=== PATIENT | female | born 1960 | race Caucasian/White ===

== ENCOUNTER → 2018-01-15 14:43 | Outpatient (CLI) | payer OTHER, SELFPAY ==
--- NOTE | 2018-01-15 14:46 | ECHOCS_ITS ---
Reason For Study: PULMONARY HTN Procedure This was a 2D Doppler, Color Flow transthoracic echocardiogram. The study was technically difficult. Exam performed in department. Left Ventricle Normal size and thickness. The estimated ejection fraction is 65 %. Stage 1 diastolic dysfunction. No regional wall motion abnormalities noted. Right Ventricle Normal size and thickness. Normal systolic function. Atria Normal left atrium. Normal right atrium. Normal atrial septum. Mitral Valve The mitral valve is structurally normal. No prolapse or stenosis seen. Tricuspid Valve Normal tricuspid valve. Unable to estimate RV systolic pressure due to inadequate jet, pulmonary artery pressure probably normal. Aortic Valve Trisinus/trileaflet aortic valve. Pulmonic Valve The pulmonic valve is not well visualized. Great Vessels Normal aortic root. Normal arch. Normal inferior vena cava. Inferior vena cava collapse with sniff. Pericardium/Pleural No pericardial effusion. Medication 22 gauge I.V. with prn adaptor inserted into right arm. Diluted definity 4ml given slow IV push to enhance endocardial definition. MMode/2D Measurements & Calculations LVIDd: 4.8 cm IVSd: 0.97 cm Ao root diam: 3.0 cm LVIDs: 3.1 cm LVPWd: 0.79 cm LA dimension: 3.3 cm FS: 35.4 % LAV(MOD-bp): 54.7 ml LA A4 area: 19.2 cm2 RA A4 area: 14.4 cm2 LAV(MOD-bp) Indexed: 22.6 ml/m2 LAV(MOD-sp2): 47.8 ml LAV(MOD-sp4): 48.2 ml Time Measurements MV dec time: 0.25 sec Doppler Measurements & Calculations MV E max stuart: 82.4 cm/sec Lat Peak E' Stuart: 14.4 cm/sec Med Peak E' Stuart: 11.0 cm/sec MV A max stuart: 76.2 cm/sec E/E' lat: 5.7 E/E' med: 7.5 MV E/A: 1.1 Ao V2 max: 129.3 cm/sec LV V1 max: 114.4 cm/sec PA V2 max: 130.7 cm/sec Ao max P.7 mmHg LV V1 max P.2 mmHg Interpretation Summary The estimated ejection fraction is 65 %. Stage 1 diastolic dysfunction. Unable to estimate RV systolic pressure due to inadequate jet, pulmonary artery pressure probably normal. Compared to echo report dated 08/02/2016, no appreciable changes noted. Consider RHC if pulmonary HTN is suspected. The study was technically difficult. Contrast injection was performed. Ordering Physician: Lefty Feliz Referring Physician: KATHLEEN MAYES Performed By: Em Mora RDCS
== END ==
PROVIDERS: Family Provider Internal Medicine; PCP Internal Medicine; Visit Provider Internal Medicine Cardiovascular Disease
DX: I27.21 Secondary pulmonary arterial hypertension (principal); I26.99 Other pulmonary embolism without acute cor pulmonale; I10 Essential (primary) hypertension; G47.33 Obstructive sleep apnea (adult) (pediatric)
CPT/HCPCS: 93306; Q9957; C8929

== ENCOUNTER 2018-12-16 03:22 | Emergency (ER) | payer OTHER, SELFPAY ==
[2018-11-19 06:34] VITALS: BMI 64.4
[2018-12-16 03:23] VITALS: BP 156/59; PULSE 74; RESP 16; TEMP 36.6; O2SAT 95; BMI 65.1
--- NOTE | 2018-12-16 03:33 | ED.DCSUM_ITS ---
- ER Visit Summary Date of Service: 12/16/18 Chief Complaint: Hematuria, dysuria History of Present Illness: The patient is a 58 F who presents with hematuria. It started early this morning. She had noticed some dysuria as well. She is on Coumadin for history of PE. Her INR this month was 2.9. She denies fevers. She has had urinary tract infections in the past. Denies any abdominal pain. No nausea or vomiting. Physical Examination: Vital signs reviewed. HEENT exam unremarkable. Heart is regular rate and rhythm without murmurs. Lungs are clear to auscultation. Abdomen is soft and nontender. Extremities reveal no edema. Skin exam normal. Neurologic exam normal. Test Results: Urinalysis has greater than 100 red blood cells Emergency Department Course and Treatment: The patient has no white blood cells but the red blood cells may represent infection due to her being on Coumadin. I will treat her with Keflex. She will follow-up with her PCP Treatment Plan: [] Disposition: Discharge Impression: UTI hematuria This note was generated with [employer] dictation software. It may contain incorrect words, spelling, and punctuation that were not noted in review of the chart prior to signing ED Disposition - Plan for ED Patient: Referrals: Loyda Cameron MD [Primary Care Provider] -
[2018-12-16 03:47] LABS: Bacteria 0 SEEN /hpf (None Seen); Mucous, Urine 0 SEEN /hpf (<or=2+); White Blood Cells 0 SEEN /hpf (0-5)
[2018-12-16 03:48] LABS: Color, Urine Red (Yellow); Glucose, Dipstick Normal (Normal); Ketone-Dipstick 5 mg/dl (Negative); Leukocyte Esterase-Dipstick Negative /ul (Negative); Nitrite-Dipstick Negative (Negative); Occult Blood-Urine 250 /ul (Negative); Protein-Dipstick 500 mg/dl (Negative); Urine Bilirubin Dipstick Negative (Negative); Urine Clarity Turbid (Clear); Urine Urobilinogen Normal (Normal); Urine pH 6.5 (5.0 - 8.0)
[2018-12-16 03:55] LABS: Red Blood Cells-Urine > 100 SEEN /hpf (0-5); Squamous Epithelial Cells - UA 0-5 SEEN /hpf (5-10)
--- NOTE | 2018-12-16 04:22 | ED.DEP ---
ED Disposition - Plan for ED Patient: Disposition: Home or Assisted Living Instructions: Bladder Infection, Female (Adult) Prescriptions: Cephalexin [Keflex] 500 mg PO Q12 #14 cap Prescription Printed Referrals: Loyda Cameron MD [Primary Care Provider] -
[2018-12-16] MEDS: Cephalexin 250 MG Capsule 500 MG PO (04:33)
[2018-12-16 04:35] VITALS: BP 109/52; PULSE 64; RESP 16; O2SAT 96
[2018-12-16] MEDS: Phenazopyridine 95 MG Tablet 190 MG PO (04:47)
== END 2018-12-16 04:56 | disposition home or self-care (01) ==
PROVIDERS: Emergency Provider Emergency Medicine; Family Provider Internal Medicine; PCP Internal Medicine
DX: N39.0 Urinary tract infection, site not specified (principal); R31.9 Hematuria, unspecified; Z79.01 Long term (current) use of anticoagulants; Z86.711 Personal history of pulmonary embolism; I25.10 Atherosclerotic heart disease of native coronary artery without angina pectoris
CPT/HCPCS: 81001; 87077; 87086; 87088; 87186; 99283

== ENCOUNTER 2019-02-23 09:04 | Day surgery (SDC) | payer OTHER, SELFPAY ==
[2019-02-18 13:30] VITALS: BMI 63.4
[2019-02-23] VITALS (7 sets, daily range): BP systolic 121–154; BP diastolic 55–89; PULSE 69–92; RESP 16–18; TEMP 36.1–37.2; O2SAT 93–98; BMI 62.6
--- NOTE | 2019-02-23 | GASB_PTH ---
PATIENT: ARAMIS BARRAGAN LOC: EN U#:[id number] AGE/SX: 59/F ROOM: RE02/23/[address]: Dr. Viraj Goodwin MD : 1960 BED: DIS: 02/23/2019 SPEC #: [id number] RECD: 02/23/19 14:24 STATUS: JR JONG #: [id number] LALO: 02/23/19 00:[address]: Viraj Goodwin DEPT: SURGICAL PATHOLOGY RECD BY: Estevan Goldberg ENTERED: 02/23/19 14:25 SP TYPE: Gastric Bx OTHR DR: MD Loyda Quan MD Tissues: A - Gastric mucous membrane B - Gastric mucous membrane C - Rectum, NOS Procedures: Surgery Specimen Level IV HEADER OPERATION: Colonoscopy, EGD ([facility]) PRE-OP DIAGNOSIS: Abdominal pain; positive fecal occult blood TISSUE SUBMITTED: A - Antral biopsy for H. pylori and pathology, B - GE junction biopsy, C - Rectal polyp MICROSCOPIC DIAGNOSIS A. Antral biopsy: Mild gastritis. See microscopic description and comment. B. GE junction, biopsy: Fragments of squamous epithelium with reactive changes. C. 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 See comment. SJ:jeanette 02/24/19 COMMENT A. The results of immunohistochemistry for Helicobacter pylori will be reported separately ([id number]). C. The high grade dysplasia is noted towards the luminal surface of polyp. Correlation with clinical, endoscopic findings and appropriate follow up are necessary. MICROSCOPIC DESCRIPTION Slides are reviewed. A. The specimen shows fragments of gastric mucosa with chronic inflammatory cell infiltrates in the lamina propria consisting of lymphocytes and plasma cells, consistent with mild chronic gastritis. GROSS DESCRIPTION A - Received in fixative is one container labeled with the patient's name and designated antral biopsy. The specimen consists of multiple irregular fragments of light owens soft tissue that in aggregate measure 1 x 0.3 x 0.1 cm. The specimen is totally submitted in one cassette. B - Received in fixative is one container labeled with the patient's name and designated GE junction biopsy. The specimen consists of two irregular fragments of light owens soft tissue that in aggregate measure 0.8 x 0.4 x 0.1 cm. The specimen is totally submitted in one cassette. C - Received in fixative is one container labeled with the patient's name and designated rectal polyp. The specimen consists of a piece of owens-pink polyp measuring 2 x 2 x 1.3 cm. This piece is serially sectioned. Also present in the container is a smaller piece of polyp measuring 1 x 0.5 cm. The smaller polyp is bisected. Also present in the container are multiple fragments of owens soft tissue measuring in aggregate 1.5 x 1.5 x 0.2 cm. The entire specimen is submitted in two cassettes. Cassette 1 contains the largest polyp. / SJ:rg 02/23/19 TC:1 CPT: 90618 x3
[2019-02-23] MEDS: Lactated Ringers 1,000 ML 100 ML IV (09:37)
--- NOTE | 2019-02-23 10:15 | IMM_PTH ---
PATIENT: ARAMIS BARRAGAN LOC: EN U#:[id number] AGE/SX: 59/F ROOM: RE02/23/[address]: Dr. Viraj Goodwin MD : 1960 BED: DIS: 02/23/2019 SPEC #: [id number] RECD: 02/23/19 15:15 STATUS: JR RECaro #: [id number] LALO: 02/23/19 10:[address]: Viraj Goodwin DEPT: IMMUNOHISTOCHEMISTRY RECD BY: Tamy Sher ENTERED: 02/23/19 15:15 SP TYPE: IMMUNO OTHR DR: MD Loyda Quan MD Tissues: A - Stomach, NOS Procedures: H Pylori (initial) PHYSICIAN & INSTITUTION [facility] [place] [phone] SPECIMEN INFORMATION: Tissue Source: A - Antral biopsy Clinical Info: Abdominal pain; positive fecal occult blood Specimen Number: [id number] CPT code: 21510 METHODOLOGY: Deparaffinized sections of prefer/formalin-fixed tissue or PAP/DQ stained slides are incubated with monoclonal/polyclonal antibodies/oligonucleotide probes. Localization is made via biotin free immunoperoxidase method. Appropriate controls are performed and reacted as expected. Results on target cell population are indicated in the following table: RESULTS: ANTIBODY / CLONE RESULT Block A H Pylori (polyclonal) negative These tests were developed and their performance characteristics determined by [facility]. They may not have been cleared or approved by the U.S. Food and Drug Administration. The FDA has determined that such clearance or approval is not necessary. INTERPRETATION: A. Antral biopsy: Negative for Helicobacter pylori organisms. SJ:jeanette 02/24/19
--- NOTE | 2019-02-23 10:21 | PCM.HP.BLA ---
Problem List (1) Guaiac positive stools Status: Acute History and Physical Date of Admission: 02/23/19 Intake Vital Signs 02/18/19 Body Mass Index (BMI) 63.4 02/18/19 Height 5 ft 2 in 02/18/19 Weight: 347 lb 02/18/19 Body Mass Index (BMI) 63.4 02/18/19 Blood Pressure 151/73 H 02/18/19 Blood Pressure Location Rt radial 02/18/19 Blood Pressure Position Sitting 02/18/19 Respiratory Rate 18 Intake Visit Reasons: Blood in Stool per workload msg Chief Complaint: Routine f/u Patient Care Nursing Assistant Required: No Is patient in pain?: No Allergies latex Allergy (Verified 02/18/19 13:30) Itching naproxen [From Aleve] Adverse Reaction (Unknown, Verified 02/18/19 13:30) Unknown Medications Cholecalciferol (VIT D3) [Vitamin D3] 2,000 unit PO DAILY 10/04/14 [History Confirmed 02/18/19] Mometasone Furoate [Nasonex] 1 spray NASAL DAILY PRN PRN 10/04/14 [History Confirmed 02/18/19] olopatadine 0.1 % eye drops 1 drp OPHTHALMIC BID PRN 11/17/17 [History Confirmed 02/18/19] warfarin 7.5 mg tablet 7.5 mg PO SUTUTHSA tab 07/10/18 [History Confirmed 02/18/19] Warfarin [Coumadin ([facility])] 11.25 mg PO MOWEFR 12/16/18 [History Confirmed 02/18/19] hydrochlorothiazide 12.5 mg capsule 12.5 mg PO QAM #90 cap 02/12/19 [Rx Confirmed 02/18/19] losartan 50 mg tablet 50 mg PO QDAY #90 tab 02/12/19 [Rx Confirmed 02/18/19] PFSH Medical History Guaiac positive stools (Acute) Hypertension (Chronic) Secondary pulmonary arterial hypertension (Chronic) Bilateral pulmonary embolism (Chronic) Non-ST elevation (NSTEMI) myocardial infarction (Chronic) BMI 60.0-69.9, adult (Chronic) Obesities, morbid (Chronic) BRENNON (obstructive sleep apnea) (Chronic) Osteoarthritis (Chronic) Bilateral leg edema (Resolved) Dyspnea on exertion (Resolved) Encounter for current long-term use of anticoagulants (Inactive) Surgical History H/O laparoscopic adjustable gastric banding (Chronic) History of tubal ligation (Chronic) History of tubal ligation (Inactive) Hx of laparoscopic gastric banding (Inactive) Social History (Updated 02/19/19 @ 13:29 by Viraj Goodwin MD) Smoking Status: Never smoker second hand exposure: No alcohol intake: never substance use type: does not use caffeine: Yes what type of physical activity do you participate in: none HPI HPI HPI: ARAMIS BARRAGAN, is a 59 F who presents to the office today for HPI HPI Surgical H&P: Yes HPI: ARAMIS BARRAGAN, is a 59 F who presents to the office today for Positive fecal occult blood. The patient reports that she has not noticed any gross blood. She had positive fecal occult blood. She notes that she has diffuse abdominal pain. She has never had a colonoscopy. She is on Coumadin for history of blood clots. ROS General General: No weight change or fatigue Musc Musculoskeletal: Yes arthritis Cardio Cardiovascular: Yes high blood pressure; no murmur, pacemaker, heart disease, atrial fibrillation, heart attack, heart stent, palpitations, shortness of breat with exertion or chest pain Psych Psychiatric: Yes anxiety; no depression Resp Respiratory: No shortness of breath, Yes sleep apnea, No cough, No COPD, No asthma, No emphysema, No wheezing Gastro Gastrointestinal: Yes abdominal pain, No nausea or vomiting, No diarrhea, No constipation, Yes blood in stool, No acid reflux, No hemorrhoids, No ulcers, No gallbladder problem, No black,tarry stools Marbin Hematologic: Yes blood thinners, Yes blood clots Exam Const General: cooperative Orientation: alert, oriented x3 Resp Effort & Inspection: normal respiratory effort Auscultation: clear to auscultation bilaterally Cardio Rate: regular rate Rhythm: regular rhythm Heart Sounds: no murmurs GI Inspection: non-distended Palpation: soft, nontender Assessment & Plan Problems 1. Guaiac positive stools R19.5 Plan The patient has a significant history of PEs and blood clots. The patient's doctor requested that her colonoscopy and EGD be performed on Coumadin. I discussed this with her. I discussed the increased risk of bleeding. She is also [employer]. This limits her medication options if bleeding does occur. She would not be able to receive FFP. I did discuss the possibility of using Kcentra. I explained endoscopy in detail to the patient. I explained the risks including but not limited to stroke or heart attack with anesthesia, perforation of the GI tract, bleeding, infection. I explained that any of these could necessitate further emergency surgery. The patient understands and all questions were answered sufficiently. The patient wishes to proceed with procedure. I will plan for EGD and colonoscopy. Viraj Goodwin MD Pager: [facility] [address] [place] [address], [address] [place] [address] Office:
--- NOTE | 2019-02-23 11:15 | OP.ENDO_ITS ---
02/23/2019 Loyda Cameron [address] [place] [address] Re : Upper GI endoscopy procedure for Mary Jo Lin Dear Dr. Cameron This procedure was performed on Saturday, February 23, 2019. My impressions and recommendations are as follows: Impressions : - Esophagitis. Biopsied. - Large hiatal hernia. - Biopsies were taken with a cold forceps for Helicobacter pylori testing. Recommendations : - Await pathology results. - Discharge patient to home. - Resume previous diet. - Continue present medications. My findings are described in the full procedure note, which is enclosed. If I can be of further assistance, please feel free to contact me at Doctor phone number(s): , Work: . Sincerely, Viraj Goodwin MD 02/23/2019 11:14:39 AM This report has been signed electronically.
--- NOTE | 2019-02-23 11:17 | OP.ENDO_ITS ---
02/23/2019 Loyda Cameron [address] [place] [address] Re : Colonoscopy procedure for Mary Jo Garigan Dear Dr. Cameron This procedure was performed on Saturday, February 23, 2019. My impressions and recommendations are as follows: Impressions : - One large polyp at the recto-sigmoid colon, removed with a hot snare. Resected and retrieved. Clips were placed. Recommendations : - Repeat colonoscopy for surveillance based on pathology results. - Discharge patient to home (ambulatory). - Resume previous diet. - Continue present medications. My findings are described in the full procedure note, which is enclosed. If I can be of further assistance, please feel free to contact me at Doctor phone number(s): , Work: . Sincerely, Virja Goodwin MD 02/23/2019 11:17:24 AM This report has been signed electronically.
== END 2019-02-23 12:32 | disposition home or self-care (01) ==
LOC: EN 09:08 → AC 09:09
PROVIDERS: Family Provider Internal Medicine; PCP Internal Medicine; Referring Provider Internal Medicine; Visit Provider Surgery
PROC: 0DJD8ZZ Inspection of Lower Intestinal Tract, Via Natural or Artificial Opening Endoscopic (ICD-10-PCS; CPT 45378; principal; 2019-02-23 10:10)
DX: K20.9 Esophagitis, unspecified (principal); I27.21 Secondary pulmonary arterial hypertension; K44.9 Diaphragmatic hernia without obstruction or gangrene; D12.7 Benign neoplasm of rectosigmoid junction; R19.5 Other fecal abnormalities; Z86.711 Personal history of pulmonary embolism; Z79.01 Long term (current) use of anticoagulants; Z86.718 Personal history of other venous thrombosis and embolism; Z88.6 Allergy status to analgesic agent; Z91.040 Latex allergy status; I10 Essential (primary) hypertension; I25.2 Old myocardial infarction; G47.33 Obstructive sleep apnea (adult) (pediatric); E66.01 Morbid (severe) obesity due to excess calories; Z68.44 Body mass index [BMI] 60.0-69.9, adult
CPT/HCPCS: 43239; 45385; 88305; 88342; J7120; J2405

== ENCOUNTER → 2019-03-09 14:43 | Outpatient (CLI) | payer OTHER, SELFPAY ==
[2019-02-12 14:18] VITALS: BMI 63.4
[2019-02-23 09:28] VITALS: BMI 62.6
--- NOTE | 2019-03-09 14:46 | ECHOCS_ITS ---
Reason For Study: PHTN Procedure This was a 2D Doppler, Color Flow transthoracic echocardiogram. The study was technically difficult. Contrast injection was performed. Exam performed in department. Left Ventricle Normal size and thickness. The estimated ejection fraction is 65 %. Stage 1 diastolic dysfunction. No regional wall motion abnormalities noted. Right Ventricle Moderately dilated right ventricle. Normal systolic function. Atria Normal left atrium. Normal right atrium. Normal atrial septum. Mitral Valve The mitral valve is structurally normal. No prolapse or stenosis seen. Tricuspid Valve Normal tricuspid valve. Unable to estimate RV systolic pressure due to insufficient tricuspid regurgitant envelope. Aortic Valve Normal aortic valve. Trisinus/trileaflet aortic valve. Pulmonic Valve The pulmonic valve is not well visualized. Great Vessels Normal aortic root. Normal arch. Normal inferior vena cava. Inferior vena cava collapse with sniff. Pericardium/Pleural No pericardial effusion. Medication 22 gauge I.V. with prn adaptor inserted into right arm. Diluted definity 4ml given slow IV push to enhance endocardial definition. MMode/2D Measurements & Calculations LVIDd: 4.2 cm IVSd: 1.5 cm LA dimension: 3.8 cm LVIDs: 2.9 cm LVPWd: 1.3 cm FS: 32.4 % LAV(MOD-bp): 50.9 ml LA A4 area: 18.9 cm2 RA A4 area: 16.3 cm2 LAV(MOD-bp) Indexed: 21.1 ml/m2 LAV(MOD-sp2): 40.6 ml LAV(MOD-sp4): 48.8 ml Time Measurements MV dec time: 0.25 sec Doppler Measurements & Calculations MV E max stuart: 71.7 cm/sec Lat Peak E' Stuart: 12.8 cm/sec Med Peak E' Stuart: 8.3 cm/sec MV A max stuart: 79.5 cm/sec E/E' lat: 5.6 E/E' med: 8.7 MV E/A: 0.90 MV V2 max: 76.4 cm/sec MV P1/2t max stuart: 75.1 cm/sec Ao V2 max: 162.6 cm/sec MV max P.3 mmHg MV P1/2t: 76.6 msec Ao max P.6 mmHg MV V2 mean: 45.5 cm/sec MV dec slope: 287.1 cm/sec2 Ao V2 mean: 101.2 cm/sec MV mean P.96 mmHg Ao mean P.7 mmHg MV V2 VTI: 19.9 cm MVA(P1/2t): 2.9 cm2 Ao V2 VTI: 30.2 cm LV V1 max: 118.4 cm/sec PA V2 max: 118.5 cm/sec LV V1 max P.6 mmHg LV V1 mean P.2 mmHg LV V1 mean: 65.6 cm/sec LV V1 VTI: 21.0 cm Interpretation Summary The estimated ejection fraction is 65 %. Stage 1 diastolic dysfunction. Moderately dilated right ventricle. Unable to estimate RV systolic pressure due to insufficient tricuspid regurgitant envelope. Compared to echo report dated 01/15/2018, no appreciable changes noted. Consider RHC if clinically indicated for direct pressure measurements. The study was technically difficult. Contrast injection was performed. Ordering Physician: Lefty Feliz Referring Physician: Loyda Cameron M.D. Performed By: Jaswinder Rubio RCS
== END ==
PROVIDERS: Family Provider Internal Medicine; PCP Internal Medicine; Referring Provider Internal Medicine Cardiovascular Disease; Visit Provider Internal Medicine Cardiovascular Disease
DX: I27.21 Secondary pulmonary arterial hypertension (principal); I26.99 Other pulmonary embolism without acute cor pulmonale; I10 Essential (primary) hypertension; I25.2 Old myocardial infarction
CPT/HCPCS: 93306; Q9957; A4216; C8929

== ENCOUNTER → 2019-06-04 | Outpatient (CLI) | payer OTHER, SELFPAY ==
[2019-06-01 05:59] VITALS: BMI 64.7
[2019-06-04 08:37] VITALS: PULSE 100; PULSE 104; PULSE 109; PULSE 110; PULSE 88; PULSE 89; PULSE 90; PULSE 94; O2SAT 90; O2SAT 92; O2SAT 94; O2SAT 95; O2SAT 96; O2SAT 98
--- NOTE | 2019-06-04 11:38 | WT_ITS ---
PSN 6 Minute Walk Test - 6 Minute Walk Test 6 Minute Walk Test: 6 Minute Walk Test PSN:6-Minute Walk Test Start: 06/04/19 08:08 Freq: Status: Active Protocol: RESP.6MINW Document 06/04/19 08:37 [facility] (Rec: 06/04/19 08:48 [facility] TO [facility] [id number]) 6 Minute Walk Test Date Performed 06/04/19 Time Performed 08:00 Height 5 ft 2 in Weight: 357 lb Weight in Pounds 357.[address]: Juanpablo Post Assistive device used: Walker Pre-test Oxygen Delivery Method Room Air Pulse Ox (%) 96 Pulse Rate (60-100 beats/min) 88 Dyspnea Yuriy Scale (0-10) 0 1st minute Oxygen Delivery Method Room Air Pulse Ox (%) 94 Pulse Rate (60-100 beats/min) 89 Dyspnea Yuriy Scale (0-10) 1 Number of Rests Taken 0 2nd minute Oxygen Delivery Method Room Air Pulse Ox (%) 95 Pulse Rate (60-100 beats/min) 94 Dyspnea Yuriy Scale (0-10) 2 Number of Rests Taken 0 3rd minute Oxygen Delivery Method Room Air Pulse Ox (%) 94 Pulse Rate (60-100 beats/min) 100 Dyspnea Yuriy Scale (0-10) 2 Number of Rests Taken 0 4th minute Oxygen Delivery Method Room Air Pulse Ox (%) 94 Pulse Rate (60-100 beats/min) 104 H Dyspnea Yuriy Scale (0-10) 3 Number of Rests Taken 0 Reported Symptoms Increased Work of Breathing 5th minute Oxygen Delivery Method Room Air Pulse Ox (%) 92 Pulse Rate (60-100 beats/min) 110 H Dyspnea Yuriy Scale (0-10) 4 Number of Rests Taken 0 Reported Symptoms Increased Work of Breathing 6th minute Oxygen Delivery Method Room Air Pulse Ox (%) 90 Pulse Rate (60-100 beats/min) 109 H Dyspnea Yuriy Scale (0-10) 5 Number of Rests Taken 0 Reported Symptoms Increased Work of Breathing Post-test Oxygen Delivery Method Room Air Pulse Ox (%) 98 Pulse Rate (60-100 beats/min) 90 Dyspnea Yuriy Scale (0-10) 0 Full Laps Walked 20 Partial Lap, Number of Tiles Walked 12 Total Distance Walked (ft) 1192 - Interpretation Interpretation: The patient ambulated 1192 feet over the course of 6 minutes beginning on room air with the use of a walker. Pretesting oxygen saturation was noted to be 96% on room air. With ambulation, the joseph oxygen saturation was 90%. This represents a significant exertional oxygen desaturation. - Recommendations Recommendations: There is no indication for the use of supplemental oxygen at this time. However, close interval follow-up is recommended, given the degree of oxygen desaturation noted during this study.
== END | disposition home or self-care (01) ==
LOC: PSN 08:00
PROVIDERS: PCP Internal Medicine; Referring Provider Internal Medicine Critical Care Medicine; Visit Provider Internal Medicine Critical Care Medicine
DX: I27.21 Secondary pulmonary arterial hypertension (principal)
CPT/HCPCS: 94618

== ENCOUNTER → 2019-09-11 | Outpatient (CLI) | payer OTHER, SELFPAY ==
[2019-08-20 10:58] VITALS: BMI 64.0
[2019-09-11 07:43] LABS: AST(SGOT) 18 U/L (15-37); Alanine Aminotransfer ALT/SGPT 24 U/L (13-56); Albumin, Serum 3.3 g/dL (3.2-5.0); Alkaline Phosphatase 87 U/L (45-117); Bilirubin, Direct 0.12 mg/dL (0.00-0.30); Cholesterol 178 mg/dL (200); Globulin 3.9 g/dL (2.2-4.2); High Density Lipoprotein 69 mg/dL; Protein, Total 7.2 g/dL (6.4-8.2); Triglycerides 75 mg/dL; Very Low Density Lipoprotein 15 mg/dL (5-40)
== END | disposition home or self-care (01) ==
LOC: LAB 07:06
PROVIDERS: PCP Internal Medicine; Referring Provider Internal Medicine Cardiovascular Disease; Visit Provider Internal Medicine Cardiovascular Disease
DX: E66.01 Morbid (severe) obesity due to excess calories (principal); E78.00 Pure hypercholesterolemia, unspecified; I10 Essential (primary) hypertension
CPT/HCPCS: 36415; 80061; 80076

== ENCOUNTER → 2020-06-21 | Outpatient (CLI) | payer OTHER, SELFPAY ==
[2020-02-23 14:09] VITALS: BMI 64.2
== END | disposition home or self-care (01) ==
LOC: LABSPEC 16:27
PROVIDERS: PCP Internal Medicine
DX: N85.02 Endometrial intraepithelial neoplasia [EIN] (principal)
CPT/HCPCS: 87635; C9803; U0005; U0003

== ENCOUNTER → 2020-10-03 07:49 | Outpatient (CLI) | payer OTHER, SELFPAY ==
[2019-11-30 05:36] VITALS: BMI 64.7
[2020-02-23 14:09] VITALS: BMI 64.2
[2020-10-03 08:24] VITALS: PULSE 0; PULSE 4; PULSE 87; PULSE 88; PULSE 89; O2SAT 92; O2SAT 93; O2SAT 95; O2SAT 97; O2SAT 98
--- NOTE | 2020-10-03 13:17 | WT_ITS ---
PSN 6 Minute Walk Test 6 Minute Walk Test 6 Minute Walk Test: 6 Minute Walk Test PSN:6-Minute Walk Test Start: 10/03/20 08:23 Freq: Status: Active Protocol: RESP.6MINW Document 10/03/20 08:24 [facility] (Rec: 10/03/20 08:28 [facility] [id number]) 6 Minute Walk Test Date Performed 10/03/20 Time Performed 08:00 Height 5 ft 1 in Weight: 350 lb Weight in Pounds 350.[address]: Juanpablo Post Assistive device used: Walker Pre-test Oxygen Delivery Method Room Air Pulse Ox (%) 97 Pulse Rate (60-100 beats/min) 88 Dyspnea Yuriy Scale (0-10) 1 1st minute Oxygen Delivery Method Room Air Pulse Ox (%) 97 Pulse Rate (60-100 beats/min) 89 Dyspnea Yuriy Scale (0-10) 2 Number of Rests Taken 0 2nd minute Oxygen Delivery Method Room Air Pulse Ox (%) 95 Pulse Rate (60-100 beats/min) 89 Dyspnea Yuriy Scale (0-10) 3 Number of Rests Taken 0 Reported Symptoms Increased Work of Breathing 3rd minute Oxygen Delivery Method Room Air Pulse Ox (%) 93 Pulse Rate (60-100 beats/min) 87 Dyspnea Yuriy Scale (0-10) 3 Number of Rests Taken 0 Reported Symptoms Increased Work of Breathing 4th minute Oxygen Delivery Method Room Air Pulse Ox (%) 93 Pulse Rate (60-100 beats/min) 89 Dyspnea Yuriy Scale (0-10) 3 Number of Rests Taken 0 Reported Symptoms Increased Work of Breathing 5th minute Oxygen Delivery Method Room Air Pulse Ox (%) 93 Pulse Rate (60-100 beats/min) 4 L Dyspnea Yuriy Scale (0-10) 4 Number of Rests Taken 0 Reported Symptoms Increased Work of Breathing 6th minute Oxygen Delivery Method Room Air Pulse Ox (%) 92 Pulse Rate (60-100 beats/min) 0 L Dyspnea Yuriy Scale (0-10) 4 Number of Rests Taken 0 Reported Symptoms Increased Work of Breathing Post-test Oxygen Delivery Method Room Air Pulse Ox (%) 98 Pulse Rate (60-100 beats/min) 89 Dyspnea Yuriy Scale (0-10) 1 Full Laps Walked 18 Partial Lap, Number of Tiles Walked 37 Total Distance Walked (ft) 1099 Interpretation Interpretation: The patient ambulated 1099 feet over the course of 6 minutes beginning on room air with the use of a walker. Pretesting oxygen saturation was noted to be 97% on room air. With ambulation, the joseph oxygen saturation was 92%. This represents a significant exertional oxygen desaturation, consistent with a pulmonary limitation to exercise tolerance. Recommendations Recommendations: There is no indication for the use of supplemental oxygen at this time. However, close interval follow-up is recommended, given the degree of oxygen desaturation noted during this study.
== END ==
PROVIDERS: PCP Internal Medicine; Referring Provider Internal Medicine Critical Care Medicine; Visit Provider Internal Medicine Critical Care Medicine
DX: I27.21 Secondary pulmonary arterial hypertension (principal)
CPT/HCPCS: 94618

== ENCOUNTER → 2020-11-07 12:00 | Outpatient (CLI) | payer OTHER, SELFPAY ==
[2020-02-23 14:09] VITALS: BMI 64.2
[2020-10-17 05:43] VITALS: BMI 64.7
--- NOTE | 2020-11-07 12:09 | US_ITS ---
STUDY: ULTRASOUND OF THE FEMALE PELVIS - COMPLETE REASON FOR EXAM: Female, 60 years old. IUD PlacementUS - Pelvic, Tvag LMP: TECHNIQUE: Transvaginal TECHNICAL QUALITY: Adequate. COMPARISON: None. FINDINGS: The examination was performed with the transabdominal technique. Please refer to the report dictated. US/Pelvic (Non ) IMPRESSION: Examination was performed with the transabdominal technique. Electronically Signed: Erick Santos MD at 14:32 EDT , Service support ,
--- NOTE | 2020-11-07 12:10 | US_ITS ---
STUDY: ULTRASOUND OF THE FEMALE PELVIS - COMPLETE REASON FOR EXAM: Female, 60 years old. Endometrial hyperplasia/ IUD LMP: Patient is postmenopausal. TECHNIQUE: Transabdominal and Transvaginal TECHNICAL QUALITY: Adequate. COMPARISON: None. FINDINGS: The uterus is anteverted and is in a midline position. The uterus is enlarged and measures 9.1 cm x 5.2 cm x 5.1 cm. There is a Nabothian cyst of the cervix. The endometrium is thickened and measures 5.5 mm in thickness, and is hyperechoic. There is no demonstrated endometrial mass. The uterus is of heterogeneous echotexture although no definite fibroid is seen. I.U.D. - The patient does have an I.U.D. and is in the fundus. The right ovary is visualized. The right ovary measures 3.4 cm x 2.2 cm x 1.6 cm. There is no right ovarian cyst or ovarian mass. There is no visualized right adnexal mass or complex lesion. There is normal arterial and normal venous vascularity. The left ovary is visualized. The left ovary measures 2.7 cm x 2 cm x 2 cm. There is no left ovarian cyst or ovarian mass. There is no visualized left adnexal mass or complex lesion. There is normal arterial and normal venous vascularity. There is no fluid in the cul-de-sac. US/Transvaginal Non- IMPRESSION: Mild enlargement of the uterus. The uterus is of heterogeneous echotexture although no focal fibroid is seen. Thickened endometrium measuring 5.5 mm. A IUD is seen in the fundal portion of the uterus. Electronically Signed: Erick Santos MD at 14:20 EDT , Service support ,
== END ==
PROVIDERS: PCP Internal Medicine
DX: N85.00 Endometrial hyperplasia, unspecified (principal)
CPT/HCPCS: 76830; 76856

== ENCOUNTER 2022-04-23 06:40 | Day surgery (SDC) | payer OTHER, SELFPAY ==
[2022-04-23] MEDS: Lactated Ringers 1,000 ML 15 ML IV (07:00)
[2022-04-23 07:06] LABS: INR Fingerstick 0.8
[2022-04-23 07:17] VITALS: BP 109/83; PULSE 88; RESP 17; TEMP 36.9; O2SAT 95; BMI 64.1
--- NOTE | 2022-04-23 07:47 | HP.PCM_ITS ---
History and Physical Date of Admission: 04/23/22 Intake Vital Signs ? 04/11/2214:25 Weight: 341 lb 8 oz BP 124/79 H Blood Pressure Location Rt brachial Position Sitting Respiration 17 Pulse 72 Pulse Source Monitor Temp 97.5 F L Temp Source Temporal Pulse Oximetry (%) 98 Oxygen Delivery Method room air Intake Visit Reasons:?Cscope recall letter - Coumadin, hx TV adenoma Chief Complaint: c-scope Is patient in pain?: No Allergies latex Allergy (Verified 04/11/22 14:27) Itchingnaproxen [From Aleve] Adverse Reaction (Unknown, Verified 04/11/22 14:27) Unknown Medications mometasone 50 mcg/actuation nasal spray 1 spray NASAL DAILY PRN PRN Allergies 10/04/14 [History Confirmed 04/11/22] olopatadine 0.1 % eye drops (Patanol) 1 drp ophthalmic (eye) BID PRN Allergies 11/17/17 [History Confirmed 04/11/22] cholecalciferol (vitamin D3) 125 mcg (5,000 unit) tablet (Vitamin D3) 125 mcg PO DAILY 02/23/20 [History Confirmed 04/11/22] warfarin 7.5 mg tablet 7.5 mg PO 4XW 02/23/20 [History Confirmed 04/11/22] warfarin 7.5 mg tablet 11.25 mg PO MOWEFR 02/23/20 [History Confirmed 04/11/22] hydrochlorothiazide 25 mg tablet 25 mg PO DAILY #90 tabs 02/19/21 [Rx Confirmed 04/11/22] losartan 50 mg tablet 75 mg PO QDAY htn 90 days #135 tabs 02/22/22 [Rx Confirmed 04/11/22] PFSH Medical History? Bilateral leg edema Bilateral pulmonary embolism BMI 60.0-69.9, adult Dyspnea on exertion Encounter for current long-term use of anticoagulants Guaiac positive stools Hypertension Non-ST elevation (NSTEMI) myocardial infarction Obesities, morbid BRENNON (obstructive sleep apnea) Osteoarthritis Secondary pulmonary arterial hypertension Surgical History? H/O laparoscopic adjustable gastric banding History of tubal ligation History of tubal ligation Hx of laparoscopic gastric banding Social History? Smoking Status:? Never smoker second hand exposure:? No alcohol intake:? never substance use type:? does not use caffeine:? Yes what type of physical activity do you participate in:? none HPI HPI HPI: Patient is a 62-year-old female here for surveillance colonoscopy.? Her last colonoscopy was 3 years ago and she was advised to repeat due to size of the tubovillous adenoma.? Patient denies any blood in the stool or abdominal pain. ROS General General: No weight change, appetite, fatigue, colon cancer or breast cancer HEENT HEENT: No difficulty swallowing, eye injury, eye surgery, swollen glands or hoarseness Endo Endocrine: No thyroid disease, diabetes mellitus, thyroid cancer, Hair loss, heat intolerance or cold intolerance Skin Skin: No rash or changing moles Musc Musculoskeletal: Yes arthritis; No back problems, rheumatoid arthritis, gout or joint pain Cardio Cardiovascular: Yes high blood pressure; No murmur, pacemaker, heart disease, atrial fibrillation, heart attack, heart stent, palpitations, shortness of breat with exertion or chest pain Psych Psychiatric: No depression, anxiety or hearing voices Resp Respiratory: No shortness of breath, Yes sleep apnea, Yes cough, No COPD, No asthma, No emphysema and No wheezing Gastro Gastrointestinal: No abdominal pain, No nausea or vomiting, No diarrhea, No constipation, No blood in stool, No acid reflux, No hemorrhoids, No ulcers, No gallbladder problem and No black,tarry stools Marbin Hematologic: Yes blood thinners and Yes blood clots Additional Details: h/o blood clots in legs/lungs Exam Const General: cooperative Orientation: alert and oriented x3 HENTN Head: normal to inspection Neck Neck: normal visual inspection and full ROM Chest Chest palpation & inspection: normal inspection of the chest Resp Effort & Inspection: normal respiratory effort Auscultation: clear to auscultation bilaterally Cardio Rate: regular rate Rhythm: regular rhythm GI Inspection: non-distended Palpation: soft and nontender Skin General: no rashes or lesions noted Neuro General: patient alert and patient oriented x3 Extrem General: full ROM Psych Appearance: grossly normal Mental Status: mental status grossly normal Assessment and Plan Assessment and Plan (1) History of colon polyps: ?Status:?Acute ?Plan: Patient has a history of a large tubovillous adenoma and was recommended to repeat colonoscopy for surveillance this year.? The patient is on Coumadin long- term for history of multiple PEs.? She has stopped this for procedures in the past I will ask her to stop it for 5 days for her colonoscopy. I explained endoscopy in detail to the patient.? I explained the risks including but not limited to stroke or heart attack with anesthesia, perforation of the GI tract, bleeding, infection.? I explained that any of these could necessitate further emergency surgery.? The patient understands and all questions were answered sufficiently.? The patient wishes to proceed with procedure. Viraj Goodwin MD Pager: [facility] [address] [place] [address], [address] [place] [address] Office: I have examined the patient and the H&P has been reviewed. There are no clinical changes since date of exam.
[2022-04-23 07:58] LABS: Prothrombin Time Fingerstick 10.8 SEC (11.7-14.9)
--- NOTE | 2022-04-23 08:00 | COLBX_PTH ---
PATIENT: ARAMIS BARRAGAN LOC: EN U#:[id number] AGE/SX: 62/F ROOM: RE04/23/[address]: Dr. Viraj Goodwin MD : 1960 BED: DIS: 04/23/2022 SPEC #: [id number] RECD: 04/23/22 11:13 STATUS: JR JONG #: [id number] LALO: 04/23/22 08:[address]: Viraj Goodwin DEPT: SURGICAL PATHOLOGY RECD BY: Damari Langley ENTERED: 04/23/22 13:02 SP TYPE: COLON BX OTHR DR: Dr. Loyda Cameron MD Tissues: A - Transverse colon B - COLON BIOPSY Procedures: Surgery Specimen Level IV HEADER OPERATION: Colonoscopy with biopsy and polypectomy (MAC) PRE-OP DIAGNOSIS: History of colon polyps TISSUE SUBMITTED: A ? Biopsy transverse colon polyp, B ? Polyp at 12 cm MICROSCOPIC DIAGNOSIS A. Transverse colon polyp, biopsy: Hyperplastic polyp. B. Colon polyp at 12 cm, polypectomy: Fragments of tubulovillous adenoma with focal high-grade dysplasia. SJ:jeanette 04/24/2022 COMMENT Correlation with clinical, endoscopic findings and appropriate follow up are necessary. Case has been reviewed in consultation with Dr. Mcintyre who concurs with the above diagnosis. IDC:AM MICROSCOPIC DESCRIPTION Slides are reviewed. GROSS DESCRIPTION A - Received in fixative is one container labeled with the patient's name and designated biopsy transverse colon polyp. The specimen consists of one irregular fragment of light owens soft tissue that measures 0.4 x 0.1 x 0.1 cm. The specimen is totally submitted in one cassette. B - Received in fixative is one container labeled with the patient's name and designated polyp at 12 cm. The specimen consists of two polypoid pieces of owens soft tissue each measuring 1.5 x 1 x 1 cm. These pieces are serially sectioned. Also present in the container are multiple fragments of owens-pink soft tissue measuring in aggregate 1.5 x 0.5 x 0.3 cm. The entire specimen is submitted in one cassette. / HERNAN:jeanette 04/23/2022 TC:1 CPT: 64544 x2
[2022-04-23 08:29] VITALS: BP 108/77; BP 109/83; PULSE 90; RESP 16; TEMP 36.4; O2SAT 92
--- NOTE | 2022-04-23 08:30 | OP.CCLET_ITS ---
04/23/2022 Loyda Cameron [address] [place] [address] Re : Colonoscopy procedure for Mary Jo Lin Dear Dr. Cameron This procedure was performed on Saturday, April 23, 2022. My impressions and recommendations are as follows: Impressions : - One large polyp in the rectum, removed with a hot snare. Resected and retrieved. - One small polyp in the transverse colon, removed with a hot snare. Resected and retrieved. Recommendations : - Discharge patient to home. - Resume previous diet. - Continue present medications. - Resume Coumadin (warfarin) at prior dose in 2 days. - Repeat colonoscopy in 1 year for surveillance after piecemeal polypectomy. My findings are described in the full procedure note, which is enclosed. If I can be of further assistance, please feel free to contact me at Doctor phone number(s): , Work: . Sincerely, Viraj Goodwin MD 04/23/2022 8:30:22 AM This report has been signed electronically.
--- NOTE | 2022-04-23 08:30 | OP.COLON_ITS ---
Patient Name: Mary Jo Lin Procedure Date: 04/23/2022 7:55 AM Date of : 1960 Age: 62 Procedure: Colonoscopy Indications: High risk colon cancer surveillance: Personal history of colonic polyps Providers: Viraj Goodwin MD Medicines: Monitored Anesthesia Care Patient Profile: This is a 62 year old female. Refer to note in patient chart for documentation of history and physical. Last Colonoscopy: 3 years ago. Complications: No immediate complications. Estimated blood loss: Minimal. Procedure: Pre-Anesthesia Assessment: - Prior to the procedure, a History and Physical was performed, and patient medications and allergies were reviewed. The patient's tolerance of previous anesthesia was also reviewed. The risks and benefits of the procedure and the sedation options and risks were discussed with the patient. All questions were answered, and informed consent was obtained. Prior Anticoagulants: The patient has taken Coumadin (warfarin), last dose was 2 days prior to procedure. After reviewing the risks and benefits, the patient was deemed in satisfactory condition to undergo the procedure. After I obtained informed consent, the scope was passed under direct vision. Throughout the procedure, the patient's blood pressure, pulse, and oxygen saturations were monitored continuously. The pediatric colonoscope was introduced through the anus and advanced to the cecum, identified by appendiceal orifice and ileocecal valve. The colonoscopy was performed without difficulty. The patient tolerated the procedure well. The quality of the bowel preparation was good. Scope In: 8:03:04 AM Scope Withdrawal Time 0 hours 11 minutes 57 seconds Scope Out: 8:23:49 AM Total Procedure Duration Time 0 hours 20 minutes 45 seconds Findings: A large polyp was found in the rectum. The polyp was removed with a hot snare. Resection and retrieval were complete. A small polyp was found in the transverse colon. The polyp was removed with a hot snare. Resection and retrieval were complete. Impression: - One large polyp in the rectum, removed with a hot snare. Resected and retrieved. - One small polyp in the transverse colon, removed with a hot snare. Resected and retrieved. Recommendation: - Discharge patient to home. - Resume previous diet. - Continue present medications. - Resume Coumadin (warfarin) at prior dose in 2 days. - Repeat colonoscopy in 1 year for surveillance after piecemeal polypectomy. Procedure Code(s): --- Professional --- 25706, Colonoscopy, flexible; with removal of tumor(s), polyp(s), or other lesion(s) by snare technique Diagnosis Code(s): --- Professional --- Z86.010, Personal history of colonic polyps K62.1, Rectal polyp D12.3, Benign neoplasm of transverse colon (hepatic flexure or splenic flexure) CPT copyright 2017 [employer]. All rights reserved. The codes documented in this report are preliminary and upon piling cutter review may be revised to meet current compliance requirements. Viraj Goodwin MD 04/23/2022 8:30:22 AM This report has been signed electronically. Number of Addenda: 0 Note Initiated On: 04/23/2022 7:55 AM
[2022-04-23 08:35] VITALS: BP 104/73; BP 109/83; PULSE 84; RESP 16; O2SAT 93
[2022-04-23 08:40] VITALS: BP 109/83; BP 113/80; PULSE 75; RESP 16; O2SAT 95
[2022-04-23 08:45] VITALS: BP 109/83; BP 125/76; PULSE 72; RESP 16; TEMP 36.6; O2SAT 96
[2022-04-23 09:00] VITALS: BP 109/83
== END 2022-04-23 09:09 | disposition home or self-care (01) ==
LOC: EN 06:41 → AC 06:44
PROVIDERS: PCP Internal Medicine; Referring Provider Internal Medicine; Visit Provider Surgery
PROC: 0DJD8ZZ Inspection of Lower Intestinal Tract, Via Natural or Artificial Opening Endoscopic (ICD-10-PCS; CPT 45378; principal; 2022-04-23 07:55)
DX: Z12.11 Encounter for screening for malignant neoplasm of colon (principal); D12.8 Benign neoplasm of rectum; G47.33 Obstructive sleep apnea (adult) (pediatric); I25.2 Old myocardial infarction; I10 Essential (primary) hypertension; Z86.711 Personal history of pulmonary embolism; Z79.899 Other long term (current) drug therapy; Z79.01 Long term (current) use of anticoagulants; Z86.010 Personal history of colon polyps
CPT/HCPCS: 45385; 36416; 85610; 88305; J7120; J2405

== ENCOUNTER 2023-05-09 07:01 | Day surgery (SDC) | payer OTHER, SELFPAY ==
[2023-05-09] VITALS (8 sets, daily range): BP systolic 67–145; BP diastolic 48–86; PULSE 58–95; RESP 14–18; TEMP 36.3–36.4; O2SAT 92–99; BMI 62.8
--- OUTSIDE RECORDS SUMMARY | 2023-05-09 07:04 | XMS RPT_ITS | CCD ---
Author Name Unknown Address [address] [place] [address] Organization [facility] Care Team Providers Care Bioinformatics Programmer Name Role Phone Margie Turner Unavailable Unavailable Margie Turner Unavailable Unavailable Aida RN, Maureen Vera Unavailable Unavailable SUGEY RIOS, DR HAWLEY Primary Care Physician [phone] Marleen Cameron MD Primary Care Provider Marleen Cameron MD Primary Care Provider Marleen Cameron MD Primary Care Provider TALKAVON, MARLEEN D Primary Care Unavailable TALAMPAS, MARLEEN D Primary Care Unavailable TALAMPAS, MARLEEN D Primary Care Unavailable TALAMPAS, MARLEEN D Primary Care Unavailable TALAMPAS, MARLEEN D Primary Care Unavailable TALAMPAS, MARLEEN D Primary Care Unavailable TALAMPAS, MARLEEN D Primary Care Unavailable TALAMPAS, MARLEEN D Primary Care Unavailable TALAMPAS, MARLEEN D Referring Unavailable TALAMPAS, MARLEEN D Primary Care Unavailable TALAMPAS, MARLEEN D Primary Care Unavailable TALAMPAS, MARLEEN D Primary Care Unavailable TALAMPAS, MARLEEN D Primary Care Unavailable TALAMPAS, MARLEEN D Primary Care Unavailable TALAMPAS, MARLEEN D Attending Unavailable TALAMPAS, MARLEEN D Primary Care Unavailable TALAMPAS, MARLEEN D Primary Care Unavailable TALAMPAS, MARLEEN D Primary Care Unavailable TALAMPAS, MARLEEN D Primary Care Unavailable TALAMPAS, MARLEEN D Primary Care Unavailable TALAMPAS, MARLEEN D Primary Care Unavailable Allergies Allergy Classification Reported Allergen(s) Allergy Type Date of Onset Reaction(s) Facility (3 sources) naproxen Drug Allergy 5 [facility] Work Phone: (3 sources) [facility] drug allergy 5 itching [facility] Work Phone: (20 sources) Latex; Translations: [LATEX] Allergy to substance 6 Eruption of skin (disorder), Intolerance [facility] (20 sources) Naproxen; Translations: [NAPROXEN SODIUM] Drug Allergy 0 Other: See Comments [facility] Work Phone: (20 sources) Seasonal [Other] Propensity to adverse reactions 7 [facility] (1 source) OTHER; Translations: [OTHER] Propensity to adverse reactions (disorder) 7 [facility] Medications Current Medications Medication Drug Class(es) Dates Sig (Normalized) Sig (Original) acetaminophen 500 mg oral tablet (7 sources) Start: 06-19-2020 Tylenol Extra Strength 500 mg oral tablet Dose : 1,000 mg = 2 tab(s), Oral, q4h, PRN as needed for pain, # 120 tab(s), 0 Refill(s) Start Date: 06/19/20 Status: Ordered Completed/Discontinued Medications Medication Drug Class(es) Dates Sig (Normalized) Sig (Original) cholecalciferol 0.025 mg oral capsule (20 sources) Vitamin D Start: 02-09-2014 take 2 capsules by mouth once daily Cholecalciferol, Vitamin D3, 1,000 unit cap Take 2 capsules by mouth once daily. (? dose) 0 02/09/2014 Active Problems Active Problems Problem Classification Problem Date Documented Date Episodic/Chronic Acute myocardial infarction (3 sources) Non-ST elevation (NSTEMI) myocardial infarction; Translations: [Non-ST elevation (NSTEMI) myocardial infarction] Onset: 11-02-2014 11-02-2014 Chronic Cardiac dysrhythmias (2 sources) Chronic atrial fibrillation; Translations: [Chronic atrial fibrillation, unspecified] Chronic Essential hypertension (20 sources) Benign hypertension; Translations: [Hypertensive disorder] Onset: 03-04-2016 03-04-2016 Chronic Genitourinary symptoms and ill-defined conditions (1 source) Scalding pain on urination ; Translations: [Dysuria] 01-17-2023 Episodic Immunizations and screening for infectious disease (1 source) Vaccination needed; Translations: [Encounter for immunization] Episodic Inflammation; infection of eye (except that caused by tuberculosis or sexually transmitteddisease) (2 sources) Acute atopic conjunctivitis of bilateral eyes; Translations: [Acute atopic conjunctivitis, bilateral] Episodic Nutritional deficiencies (20 sources) Vitamin D deficiency; Translations: [Vitamin D deficiency, unspecified] Onset: 06-25-2012 06-25-2012 Chronic Other aftercare (7 sources) Patient encounter status; Translations: [Other correction (current) drug therapy] Episodic Other aftercare (1 source) Other correction (current) drug therapy; Translations: [Encounter for long-term current use of medication] Onset: 04-25-2023 Episodic Other and unspecified benign neoplasm (1 source) History of polyp of colon; Translations: [Personal history of colonic polyps] Episodic Other female genital disorders (1 source) Complex atypical endometrial hyperplasia 06-02-2020 Chronic Other nutritional; endocrine; and metabolic disorders (4 sources) Morbid obesity; Translations: [Morbid (severe) obesity due to excess calories] Onset: 11-02-2014 11-02-2014 Chronic Other nutritional; endocrine; and metabolic disorders (20 sources) Body mass index 40+ - severely obese; Translations: [Morbid (severe) obesity due to excess calories] Onset: 04-12-2009 09-06-2017 Chronic Other upper respiratory disease (20 sources) Allergic rhinitis; Translations: [Allergic rhinitis, unspecified] Onset: 07-11-2009 09-04-2016 Chronic Pulmonary heart disease (3 sources) Secondary pulmonary hypertension; Translations: [Other secondary pulmonary hypertension] Onset: 02-01-2015 02-02-2015 Chronic Residual codes; unclassified (20 sources) Bilateral lower limb edema; Translations: [Localized edema] 03-15-2018 Episodic Unclassified (20 sources) Obstructive sleep apnea syndrome; Translations: [Body mass index (BMI) 60.0-69.9, adult] Onset: 11-02-2014 11-02-2014 Chronic Unclassified (3 sources) Long-term drug therapy; Translations: [Encounter for therapeutic drug level monitoring] Onset: 11-02-2014 11-02-2014 Unclassified (1 source) Has hoahaoism belief 06-26-2020 Urinary tract infections (1 source) Urinary tract infectious disease; Translations: [Urinary tract infection, site not specified] 01-17-2023 Episodic Past or Other Problems Problem Classification Problem Date Documented Date Episodic/Chronic Other aftercare (20 sources) Anticoagulant effect; Translations: [longterm (current) use of anticoagulants] Onset: 10-11-2014 10-11-2014 Episodic Other lower respiratory disease (3 sources) Dyspnea on exertion; Translations: [Other forms of dyspnea] Onset: 07-29-2016 07-29-2016 Episodic Other non-traumatic joint disorders (20 sources) Pain in right knee; Translations: [Pain in joint, lower leg] Onset: 06-23-2015 06-23-2015 Episodic Other skin disorders (20 sources) Seborrheic keratosis; Translations: [Other seborrheic keratosis] Onset: 12-17-2011 04-30-2021 Episodic Poisoning by nonmedicinal substances (20 sources) Toxic effect of latex, accidental (unintentional), initial encounter; Translations: [Toxic effect of latex] Onset: 07-11-2009 07-11-2009 Episodic Pulmonary heart disease (20 sources) Pulmonary embolism; Translations: [Pulmonary embolism with pulmonary infarction] Onset: 10-07-2014 11-02-2014 Episodic Unclassified (3 sources) Edema of lower extremity; Translations: [Localized edema] Onset: 11-03-2014 11-03-2014 Episodic Results Test Name Value Interpretation Reference Range Facil ity Vital Signs Date Time Vital Sign Value Performing Clinician Facility 01-17-2023 13:48-0400 Body temperature 98.49 [degF] Renetta Robles APRN.FOLDER MACHINE ADJUSTER Work Phone: [facility] 01-17-2023 13:48-0400 Body weight 157.13 kg Renetta Robles APRN.CNP Work Phone: [facility] 01-17-2023 13:48-0400 Diastolic blood pressure 86 mm[Hg] Renetta Robles APRN.CNP Work Phone: [facility] 01-17-2023 13:48-0400 Heart rate 101 /min Renetta Robles APRN.CNP Work Phone: [facility] 01-17-2023 13:48-0400 Respiratory rate 24 /min Renetta Praisler-Wood FRUIT PICKER MACHINE OPERATOR.FOLDER MACHINE ADJUSTER Work Phone: [facility] 01-17-2023 13:48-0400 SaO2% (BldA) [Mass fraction] 95 % Renetta Praisler-Wood FRUIT PICKER MACHINE OPERATOR.FOLDER MACHINE ADJUSTER Work Phone: [facility] 01-17-2023 13:48-0400 Systolic blood pressure 145 mm[Hg] Renetta Praisler-Wood FRUIT PICKER MACHINE OPERATOR.FOLDER MACHINE ADJUSTER Work Phone: [facility] 11-01-2022 17:22-0400 Diastolic blood pressure 72 mm[Hg] Marleen Cameron MD Work Phone: [facility] 11-01-2022 17:22-0400 Systolic blood pressure 138 mm[Hg] Marleen Cameron MD Work Phone: [facility] 11-01-2022 15:32-0400 Body temperature 98.2 [degF] Marleen Cameron MD Work Phone: [facility] 11-01-2022 15:32-0400 Body weight 156.04 kg Marleen Cameron MD Work Phone: [facility] 11-01-2022 15:32-0400 Heart rate 85 /min Marleen Cameron MD Work Phone: [facility] 11-01-2022 15:32-0400 Respiratory rate 18 /min Marleen Cameron MD Work Phone: [facility] 11-01-2022 15:32-0400 SaO2% (BldA) [Mass fraction] 99 % Marleen Cameron MD Work Phone: [facility] 03-27-2022 14:45-0500 Body height 157.5 cm Stephanie Santacruz MD Work Phone: [facility] 03-27-2022 14:45-0500 Body temperature 98.01 [degF] Stephanie Santacruz MD Work Phone: [facility] 03-27-2022 14:45-0500 Body weight 155.58 kg Stephanie Santacruz MD Work Phone: [facility] 03-27-2022 14:45-0500 Diastolic blood pressure 90 mm[Hg] Stephanie Santacruz MD Work Phone: [facility] 03-27-2022 14:45-0500 Heart rate 117 /min Stephanie Santacruz MD Work Phone: [facility] 03-27-2022 14:45-0500 SaO2% (BldA) [Mass fraction] 98 % Stephanie Santacruz MD Work Phone: [facility] 03-27-2022 14:45-0500 Systolic blood pressure 164 mm[Hg] Stephanie Santacruz MD Work Phone: [facility] 03-12-2022 15:45-0500 Body weight 155.13 kg Marleen Cameron MD Work Phone: [facility] 03-12-2022 15:45-0500 Diastolic blood pressure 86 mm[Hg] Marleen Cameron MD Work Phone: [facility] 03-12-2022 15:45-0500 Heart rate 83 /min Marleen Cameron MD Work Phone: [facility] 03-12-2022 15:45-0500 SaO2% (BldA) [Mass fraction] 96 % Marleen Cameron MD Work Phone: [facility] 03-12-2022 15:45-0500 Systolic blood pressure 138 mm[Hg] Marleen Cameron MD Work Phone: [facility] 07-17-2021 18:36-0400 Body weight 155.13 kg Marleen Cameron MD Work Phone: [facility] 07-17-2021 18:36-0400 Diastolic blood pressure 72 mm[Hg] Marleen Cameron MD Work Phone: [facility] 07-17-2021 18:36-0400 Heart rate 78 /min Marleen Cameron MD Work Phone: [facility] 07-17-2021 18:36-0400 Systolic blood pressure 128 mm[Hg] Marleen Cameron MD Work Phone: [facility] 03-24-2017 15:29-0500 BMI (Body Mass Index) 62.73 kg/m2 [facility] Work Phone: 03-24-2017 15:29-0500 BP Diastolic 62 mm[Hg] [facility] Work Phone: 03-24-2017 15:29-0500 BP Systolic 128 mm[Hg] [facility] Work Phone: 03-24-2017 15:29-0500 Height 157.48 cm [facility] Work Phone: 03-24-2017 15:29-0500 Pulse (Heart Rate) 74 /min [facility] Work Phone: 03-24-2017 15:29-0500 Respiratory Rate 18 /min [facility] Work Phone: 03-24-2017 15:29-0500 Weight 155.58 kg [facility] Work Phone: 01-30-2017 06:42-0400 BMI (Body Mass Index) 62.73 kg/m2 [facility]ure[facility] Work Phone: 01-30-2017 06:42-0400 Body Temperature 98.5 [degF] Maureen Parra RN [facility] Work Phone: 01-30-2017 06:42-0400 BP Diastolic 84 mm[Hg] Maureen Parra RN [facility] Work Phone: 01-30-2017 06:42-0400 BP Systolic 127 mm[Hg] Maureen Parra RN [facility] Work Phone: 01-30-2017 06:42-0400 Height 157.48 cm Maureen Parra RN [facility] Work Phone: 01-30-2017 06:42-0400 Pulse (Heart Rate) 83 /min Maureen Parra RN [facility] Work Phone: 01-30-2017 06:42-0400 Respiratory Rate 18 /min Maureen Parra RN [facility] Work Phone: 01-30-2017 06:42-0400 Weight 155.58 kg Maureen Parra RN [facility] Work Phone: 03-04-2016 09:21-0400 BSA (Body Surface Area) 2.41 m2 Maureen Parra RN [facility] Work Phone: 01-30-2016 10:00-0400 Body Temperature 97.34 [degF] Maureen Parra RN [facility] Work Phone: 01-30-2016 10:00-0400 Height 157.48 cm Maureen Parra RN [facility] Work Phone: 01-30-2016 10:00-0400 Weight 156.82 kg Maureen Parra RN [facility] Work Phone: Encounters Encounter Date Encounter Type Care Provider Facility Start: 04-25-2023 End: 04-26-2023 ambulatory MARLEEN D TALAMPAS Facility:[facility] Start: 04-24-2023 End: 04-24-2023 ambulatory MARLEEN D TALAMPAS Facility:[facility] Start: 04-23-2023 ambulatory Marleen orozco MD Work Phone: [facility] [place] Start: 04-04-2023 End: 04-04-2023 ambulatory MARLEEN D TALAMPAS Facility:[facility] Start: 03-19-2023 End: 03-19-2023 ambulatory MARLEEN D TALAMPAS Facility:[facility] Start: 03-07-2023 End: 03-07-2023 ambulatory MARLEEN D TALAMPAS Facility:[facility] Start: 03-07-2023 End: 03-07-2023 Anticoagulant drug monitoring [facility] Work Phone: [facility] Procedures Procedure Procedure Detail Performing Clinician Start: 04-25-2023 Lipid 1996 panel - S philippe or Plasma Marleen Cameron MD Work Phone: Start: 01-17-2023 Urnls dip stick/tabl et rgnt auto w/o microscopy [facility] Provider Start: 03-15-2022 End: 03-15-2022 Mammography Bulk Order Provider Start: 03-12-2022 INFLUENZA VACCINE QUADRIVALENT 6 MO - 64 YRS IM Marleen Cameron MD Work Phone: Start: 03-02-2022 Lipid 1996 panel - S philippe or Plasma Renetta Robles FRUIT PICKER MACHINE OPERATOR.FOLDER MACHINE ADJUSTER Work Phone: Start: 01-26-2021 Mammography Anticoag W str Work Phone: Start: 01-12-2021 Adult depression scr eening assessment [facility] Work Phone: Start: 02-26-2019 Colonoscopy Anticoag W str Work Phone: Start: 03-24-2017 End: 03-24-2017 ROSIO Feliz MD Work Phone: Start: 03-24-2017 End: 03-24-2017 Follow Up Appt 6 months Lefty Feliz MD Work Phone: Start: 09-10-2016 End: 09-10-2016 ROSIO Feliz MD Work Phone: Start: 09-10-2016 End: 09-10-2016 Follow Up Appt 6 months Lefty Feliz MD Work Phone: Start: 07-29-2016 End: 08-02-2016 BWA Christina Spence SPIRAL WINDER Work Phone: Start: 07-29-2016 End: 08-02-2016 Echo tthrc r-t 2d w/wom-mode compl spec&colr d Christina Galdamez FOLDER MACHINE ADJUSTER Work Phone: Start: 07-29-2016 End: 08-02-2016 Follow Up Appt 6 months Christina mcfadden FOLDER MACHINE ADJUSTER Work Phone: Start: 07-03-2016 End: 07-24-2016 Pulmonary Function Test - complete Juanpablo Post Work Phone: Start: 07-03-2016 End: 07-24-2016 Pulmonary stress test/simple Juanpablo sparks Work Phone: Start: 03-04-2016 End: 03-04-2016 ROSIO Feliz MD Work Phone: Start: 03-04-2016 End: 03-04-2016 Follow Up Appt 6 months Lefty Feliz MD Work Phone: Start: 03-04-2016 End: 03-04-2016 Follow Up BP Check Lefty Feliz MD Work Phone: Start: 01-30-2016 End: 07-30-2016 Follow Up Appt 6 months Juanpablo Post Work Phone: Start: 08-01-2015 End: 07-24-2016 Follow Up Appt 6 months Juanpablo Post Work Phone: Start: 07-04-2015 End: 01-26-2016 Co diffusing capacity Juanpablo Post Work Phone: Start: 07-04-2015 End: 01-26-2016 Plethysmography lung volumes w/wo airway resist Juanpablo Post Work Phone: Start: 02-06-2015 End: 02-06-2015 ROSIO Feliz MD Work Phone: Start: 02-06-2015 End: 02-07-2015 Documentation of current medications Lefty Feliz MD Work Phone: Start: 02-06-2015 End: 02-06-2015 Follow Up Appt 1 year Nathanael Ryan Work Phone: Start: 02-01-2015 End: 02-01-2015 Documentation of current medications Juanpablo Post Work Phone: Start: 02-01-2015 End: 01-26-2016 Follow Up Appt 6 months Juanpablo Post Work Phone: Start: 11-07-2014 End: 11-07-2014 DJN Lefty Feliz MD Work Phone: Start: 11-07-2014 End: 11-07-2014 Documentation of current medications Lefty Feliz MD Work Phone: Start: 11-07-2014 End: 11-07-2014 Follow Up Appt 3 months Lefty Feliz MD Work Phone: Start: 11-07-2014 End: 11-07-2014 Follow Up BP Check Lefty Feliz MD Work Phone: Start: 11-03-2014 End: 01-26-2016 Echo tthrc r-t 2d w/wom-mode compl spec&colr d Juanpablo Post Work Phone: Start: 11-03-2014 End: 01-26-2016 Follow Up Appt 3 months Juanpablo Delonte Post Work Phone: Start: 11-03-2014 End: 01-26-2016 Pulmonary Function Test - complete Juanpablo Post Work Phone: Start: 11-03-2014 End: 01-26-2016 Pulmonary stress test/simple Juanpablo Delonte Jordy sparks Work Phone: Start: 11-03-2014 End: 01-26-2016 Retitration with follow up (patient on CPAP currently) Juanpablo Delonte Sincere Work Phone: Bypass of stomach NICOLE SORIA MD Dilation and curetta ge of uterus NICOLE KUMAR MD Ligation of fallopian tube Sangeeta KUMAR MD Plan of Treatment Date Care Activity Detail Author Start: 01-12-2031 Urine microalbumin profile [facility] Start: 04-25-2028 Lipid panel Lipid Screening [facility] Start: 03-02-2027 Lipid 1996 panel - S philippe or Plasma Lipid Screening [facility] Start: 03-02-2027 LIPID SCREEN LIPID SCREEN [facility] Start: 04-25-2026 Diabetes Screening Diabetes Screenin g [facility] Start: 01-12-2026 LIPID SCREEN LIPID SCREEN [facility] Start: 03-02-2025 DIABETES SCREEN DIABETES SCREEN [facility] Start: 03-02-2025 Diabetes Screening Diabetes Screenin g [facility] Start: 01-13-2024 DIABETES SCREEN DIABETES SCREEN [facility] Start: 11-02-2023 ANNUAL PCP TEAM TRANSPORT TECH DIANE DISEASE VISIT ANNUAL PCP TEAM CHRONIC DISEASE VISIT [facility] Start: 11-02-2023 HPV TESTING HPV TESTING [facility] Immunizations Immunization Date Immunization Notes Care Provider Fa laurence 03-12-2022 influenza, injectabl e, quadrivalent, contains preservative Katalina Aponte FRUIT PICKER MACHINE OPERATOR.FOLDER MACHINE ADJUSTER Work Phone: [facility] 03-12-2022 influenza virus vaccine, unspecified formulation Renetta Robles FRUIT PICKER MACHINE OPERATOR.FOLDER MACHINE ADJUSTER Work Phone: [facility] 06-01-2021 COVID-19 original vaccine, full dose, monovalent (MODERNA) Katalina Aponte FRUIT PICKER MACHINE OPERATOR.FOLDER MACHINE ADJUSTER Work Phone: [facility] 01-12-2021 tetanus toxoid, redu lucas diphtheria toxoid, and acellular pertussis vaccine, adsorbed [facility] Work Phone: [facility] 11-10-2020 COVID-19 vaccine, fu ll dose (MODERNA) [facility] Work Phone: [facility] Work Phone: 10-13-2020 COVID-19 vaccine, fu ll dose (MODERNA) [facility]tico[facility] Work Phone: [facility] Work Phone: 01-31-2006 tetanus and diphther ia toxoids, adsorbed, preservative free, for adult use (2 Lf of tetanus toxoid and 2 Lf of diphtheria toxoid) [facility]tico[facility] Work Phone: [facility] Work Phone: Payers Date Payer Category Payer Unknown [facility] [employer] [id number] 2021-Present [phone] [address] [place] [address] PPO [id number] 2021 Unknown [id number] 2020 Unknown [id number] Social History Date Type Detail Facility Start: 06-02-2020 End: 03-27-2022 Never smoked tobacco (finding) [facility] Sex Assigned At [facility] Start: 01-12-2021 End: 01-17-2023 Alcohol intake Current non-drinker of alcohol (finding) [facility] Start: 11-19-2019 History SDOH Alcohol Frequency 2 [facility] Start: 11-19-2019 History SDOH Alcohol Std Drinks 1 [facility] Start: 11-19-2019 History SDOH Social Connections Phone 5 [facility] Start: 11-19-2019 History SDOH Social Connections Get Together 3 [facility] Start: 11-19-2019 History SDOH Financial 4 [facility] Start: 11-19-2019 Education 14 [facility] Start: 1960 Sex Assigned At Not on file [facility] Start: 07-31-2021 End: 03-27-2022 Exposure to SARS-CoV-2 (event) Not sure [facility] Work Phone: Start: 11-09-2010 End: 03-27-2022 Tobacco use and exposure Smokeless tobacco non-user [facility] Work Phone: Start: 11-19-2019 End: 01-24-2023 History of Social function [place] Start: 11-19-2019 End: 01-24-2023 Social connection and isolation panel [facility] Do you belong to any clubs or organizations such as latter day groups, unions, fraternal or athletic groups, or school groups? Yes [facility] Are you now , , , , never or living with a partner? [facility] How often to you hav e a drink containing alcohol? Monthly or less [facility] How many standard dr inks containing alcohol do you have on a typical day? 1 or 2 [facility] How often do you hav e 6 or more drinks on 1 occasion? Never [facility] How hard is it for y ou to pay for the very basics like food, housing, medical care, and heating Not very hard [facility] Adult Depression Scr eening Assessment 0 [facility] Work Phone: Do you feel stress - tense, restless, nervous, or anxious, or unable to sleep at night because your mind is troubled all the time - these days [OSQ] Not at all [facility] (I/We) worried wheth er (my/our) food would run out before (I/we) got money to buy more. Never true [facility] In the past 12 month s, was there a time when you were not able to pay the mortgage or rent on time? No [facility] Medical Equipment Procedure Code Equipment Code Equipment Origin al Text Equipment Identifier Dates FDA Start: 06-26-2020 Clinical Notes 10-11-2013 to 04-24-2023 Tosha Rivas RN - 03/07/2023 4:11 PM Tosha Park RN - 03/07/2023 3:30 PM Tosha Park RN - 02/07/2023 2:52 PM Tosha Park RN - 02/07/2023 1:59 PM EDT Note Date & Type Note Facility 04-24-2023 Note HNO ID: [id number] Author: Tosha Rivas RN Service: ? Author Type: Registered Nurse Type: Progress Notes Filed: 04/24/2023 3:47 PM Note Text: PATIENT NOTIFIED OF INFORMATION [facility] 04-24-2023 Note HNO ID: [id number] Author: Margie Gonzalez APRN.LOAN COORDINATOR Service: ? Author Type: Nurse Specialist Type: Progress Notes Filed: 04/24/2023 3:47 PM Note Text: Recommend change coumadin to 11.25mg Mon,Wed,Fri and 7.5mg all other days and recheck inr in 4 weeks due procedure, see below. [facility] 04-24-2023 Note HNO ID: [id number] Author: Tosha Rivas RN Service: ? Author Type: Registered Nurse Type: Progress Notes Filed: 04/24/2023 3:47 PM Note Text: patient had inr completed at [facility] patients inr is 1.8 (patients inr range is 2.0-3.0) patient is currently taking 11.25mg Mon,Fri and 7.5mg all other days patients last dose change was on 03/07/23 due to a high level of 3.8 (dose at that time was 11.25mg Mon,Wed,Fri and 7.5mg all other days) patient has had no changes in medication and no missed doses and no change in diet recommend: patient change coumadin to 11.25mg Mon,Wed,Fri and 7.5mg all other days and recheck inr in 4 weeks due to patient will be going off coumadin for 10 day for a procedure and will restart medication back on 05/12/23 patient has been scheduled for an inr follow up on 05/23/23 (which will be 2 weeks after restarting medication please review and advise on recommendation [facility] 04-23-2023 Note Patient Outreach (IN [facility]) MARY JO LIN I ([id number]) 1960 F Date Time Provider Department 04/23/23 MARLEEN CAMERON During your visit today, we recorded the following information about you: Allergies As of Date: 04/23/2023 Noted Allergy Reaction ALEVE (NAPROXEN SODIUM) 06/01/2019 14 - Other: See Comments Comments: dizziness LATEX 06/19/2005 5 - Intolerance Comments: skin, reddens, itches Seasonal [Other] 10/28/2006 Comments: Cats, Dogs, Dust mites, trees, grass, weed, ragweed Date Reviewed: 01/17/2023 Reviewed by: Miley Snyder LPN - Fully Assessed Visit Diagnosis:Encounter for screening mammogram for breast cancer [Z12.31] Order(s):[facility] SCREENING [[id number]] Order #: [id number] FUTURE Prescriptions as of 04/28/2023 - warfarin (COUMADIN) 7.5 mg tablet Take 11.25 mg Mon, Wed, Fri. Take 7.5 mg all other days - phenazopyridine (PYRIDIUM) 200 mg tablet Take 1 tablet by mouth three times daily as needed. - mometasone (NASONEX) 50 mcg/actuation nasal spray Use 2 Sprays in each nostril once daily. - olopatadine (PATANOL) 0.1 % ophthalmic solution 1 TO 2 DROPS TO EACH EYE TWICE DAILY NEEDED - hydroCHLOROthiazide (HYDRODIURIL, ESIDRIX) 12.5 mg tablet Take 1 tablet by mouth once daily. (; [facility]) - losartan (COZAAR) 50 mg tablet Take 75 mg by mouth once daily. - Cholecalciferol, Vitamin D3, 1,000 unit cap Take 2 capsules by mouth once daily. (? 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 Author Type: ? Type: Progress Notes Filed: 04/04/2023 3:28 PM Note Text: pcp agrees with information [facility] 04-04-2023 Note HNO ID: [id number] Author: Tosha Rivas RN Service: ? Author Type: ? Type: Progress Notes Filed: 04/04/2023 3:28 PM Note Text: patient had inr completed at [facility] patients inr is 2.1 (patients inr range is 2.0-3.0) patient is currently taking 11.25mg Mon,Fri and 7.5mg all other days patients last dose change was on 03/07/23 due to a high level of 3.8 (dose at that time was 11.25mg Mon,Wed,Fri and 7.5mg all other days) patient has had no changes in medication and no missed doses and no change in diet Advised patient to continue on the same dose(s) and that they would only be contacted regarding dosage and follow up instructions after review with provider, if a change is needed. Written instructions given and patient verbalized understanding. Presently scheduled in 3 weeks (04/24/23) for follow up INR. [facility] 03-19-2023 Note HNO ID: [id number] Author: Tosha Rivas RN Service: ? Author Type: ? Type: Progress Notes Filed: 03/19/2023 4:33 PM Note Text: pcp agrees with information [facility] 03-19-2023 Note HNO ID: [id number] Author: Tosha Rivas RN Service: ? Author Type: ? Type: Progress Notes Filed: 03/19/2023 4:33 PM Note Text: patient had inr completed at [facility] patients inr is 2.3 (patients inr range is 2.0-3.0) patient is currently taking 11.25mg Mon,Wed and 7.5mg all other days patients last dose change was on 03/07/23 due to a high level of 3.8 (dose at that time was 11.25mg Mon,Wed,Fri and 7.5mg all other days) patient has had no changes in medication except for couamdin and no missed doses and no change in diet Advised patient to continue on the same dose(s) and that they would only be contacted regarding dosage and follow up instructions after review with provider, if a change is needed. Written instructions given and patient verbalized understanding. Presently scheduled in 2 weeks (04/04/23) for follow up INR since this is the first normal reading since dose change [facility] 03-07-2023 Note HNO ID: [id number] Author: Tosha Rivas RN Service: ? Author Type: ? Type: Progress Notes Filed: 03/07/2023 4:11 PM Note Text: pcp agrees with information PATIENT NOTIFIED OF INFORMATION [facility] 03-07-2023 Note HNO ID: [id number] Author: Tosha Rivas RN Service: ? Author Type: ? Type: Progress Notes Filed: 03/07/2023 4:11 PM Note Text: patient had inr completed at [facility] patients inr is 3.8 (patients inr range is 2.0-3.0) patient is currently taking 11.25mg Mon,Wed,Fri and 7.5mg all other days patients last dose change was on 11/09/20 due to a low level of 1.7 (dose at that time was 11.25mg Mon,Wed and 7.5mg all other days) patient has had no changes in medication and no missed doses and no change in diet recommend: patient hold coumadin today and then go to 11.25mg Tues,Thurs and 7.5mg all other days and recheck in 2 weeks due to cc is closed at the 1 week mary lou and patient refuses the lab patient has been scheduled for a 2 week follow up inr on 03/19/23 please review and advise on recommendation [facility] 03-07-2023 History of Present illness Narrative pcp agrees with information PATIENT NOTIFIED OF INFORMATION patient had inr completed at [facility] patients inr is 3.8 (patients inr range is 2.0-3.0) patient is currently taking 11.25mg Mon,Wed,Fri and 7.5mg all other days patients last dose change was on 11/09/20 due to a low level of 1.7 (dose at that time was 11.25mg Mon,Wed and 7.5mg all other days) patient has had no changes in medication and no missed doses and no change in diet recommend: patient hold coumadin today and then go to 11.25mg Tues,Thurs and 7.5mg all other days and recheck in 2 weeks due to cc is closed at the 1 week mary lou and patient refuses the lab patient has been scheduled for a 2 week follow up inr on 03/19/23 please review and advise on recommendation documented in this encounter [facility] 02-07-2023 Note HNO ID: [id number] Author: Tosha Rivas RN Service: ? Author Type: ? Type: Progress Notes Filed: 02/07/2023 2:52 PM Note Text: pcp agrees with information [facility] 02-07-2023 Note HNO ID: [id number] Author: Tosha Rivas RN Service: ? Author Type: ? Type: Progress Notes Filed: 02/07/2023 2:52 PM Note Text: patient had inr completed at [facility] patients inr is 2.9 (patients inr range is 2.0-3.0) patient is currently taking 11.25mg mon,Wed,Fri and 7.5mg all other days patients last dose change was on 11/09/20 due to a low level of 1.7 (dose at that time was 11.25mg Mon,Wed and 7.5mg all other days) patient has had no changes on medication and no uninstructed missed doses and no change in diet Advised patient to continue on the same dose(s) and that they would only be contacted regarding dosage and follow up instructions after review with provider, if a change is needed. Written instructions given and patient verbalized understanding. Presently scheduled in 4 weeks (03/07/23) for follow up INR. [facility] 02-07-2023 History of Present illness Narrative pcp agrees with information patient had inr completed at [facility] patients inr is 2.9 (patients inr range is 2.0-3.0) patient is currently taking 11.25mg mon,Wed,Fri and 7.5mg all other days patients last dose change was on 11/09/20 due to a low level of 1.7 (dose at that time was 11.25mg Mon,Wed and 7.5mg all other days) patient has had no changes on medication and no uninstructed missed doses and no change in diet Advised patient to continue on the same dose(s) and that they would only be contacted regarding dosage and follow up instructions after review with provider, if a change is needed. Written instructions given and patient verbalized understanding. Presently scheduled in 4 weeks (03/07/23) for follow up INR. documented in this encounter [facility] 01-31-2023 Note HNO ID: [id number] Author: Tosha Rivas RN Service: ? Author Type: ? Type: Progress Notes Filed: 01/31/2023 3:06 PM Note Text: pcp agrees with information [facility] 01-31-2023 Note HNO ID: [id number] Author: Tosha Rivas RN Service: ? Author Type: ? Type: Progress Notes Filed: 01/31/2023 3:06 PM Note Text: patient had inr completed at [facility] patients inr is 3.4 (patients inr range is 2.0-3.0) patient is currently taking 11.25mg Mon,Wed,fri and 7.5mg all other days patients last dose change was on 11/09/20 due to a low level of 1.7 (dose at that time was 11.25mg Mon,Wed and 7.5mg all other days) patient has had no changes in medication and missed doses and no change in diet recommend - patient hold one dose and then resume normal dosing and recheck in 1 week patient has been scheduled for a 1 week follow up inr on 02/07/23 please review and advise on recommendation [facility] 01-31-2023 History of Present illness Narrative pcp agrees with information patient had inr completed at [facility] patients inr is 3.4 (patients inr range is 2.0-3.0) patient is currently taking 11.25mg Mon,Wed,fri and 7.5mg all other days patients last dose change was on 11/09/20 due to a low level of 1.7 (dose at that time was 11.25mg Mon,Wed and 7.5mg all other days) patient has had no changes in medication and missed doses and no change in diet recommend - patient hold one dose and then resume normal dosing and recheck in 1 week patient has been scheduled for a 1 week follow up inr on 02/07/23 please review and advise on recommendation documented in this encounter [facility] 01-24-2023 Note HNO ID: [id number] Author: Tosha Rivas RN Service: ? Author Type: ? Type: Progress Notes Filed: 01/24/2023 11:44 AM Note Text: pcp agrees with recommendation PATIENT NOTIFIED OF INFORMATION [facility] 01-24-2023 Note HNO ID: [id number] Author: Tosha Rivas RN Service: ? Author Type: ? Type: Progress Notes Filed: 01/24/2023 11:44 AM Note Text: patient had inr completed at [facility] patients inr is 4.4 (patients inr range is 2.0-3.0) patient is currently taking 11.25mg Mon,Wed,Fri and 7.5mg all other days) patients last dose change was on 11/09/20 due to a low level of 1.7 (dose at at that time was 11.25mg Mon,Wed and 7.5mg all other days) patient has had a change in medication as patient just completed an antibiotic on Friday and no missed doses and no change in diet recommend: patient hold coumadin today and then resume usual dosing tomorrow due to level is most likely off due to being on the antibiotic and to recheck inr in 1 week patient has been scheduled for a 1 week follow up inr on 01/31/23 please review and advise on recommendation [facility] 01-24-2023 History of Present illness Narrative pcp agrees with recommendation PATIENT NOTIFIED OF INFORMATION patient had inr completed at [facility] patients inr is 4.4 (patients inr range is 2.0-3.0) patient is currently taking 11.25mg Mon,Wed,Fri and 7.5mg all other days) patients last dose change was on 11/09/20 due to a low level of 1.7 (dose at at that time was 11.25mg Mon,Wed and 7.5mg all other days) patient has had a change in medication as patient just completed an antibiotic on Friday and no missed doses and no change in diet recommend: patient hold coumadin today and then resume usual dosing tomorrow due to level is most likely off due to being on the antibiotic and to recheck inr in 1 week patient has been scheduled for a 1 week follow up inr on 01/31/23 please review and advise on recommendation documented in this encounter [facility] 01-17-2023 Note HNO ID: [id number] Author: Renetta Robles APRN.FOLDER MACHINE ADJUSTER Service: ? Author Type: Nurse Practitioner Type: Progress Notes Filed: 01/17/2023 2:23 PM Note Text: This note was created using [employer]. Subjective Mary Jo Lin is a 62 year old female. Patient presents with dysuria that began this afternoon. Patient reports she felt some discomfort while voiding earlier today, but at 13:00 she voided and had much more severe pain and burning. Her urine is darker than usual. She has not had tried any treatment at home for symptoms. She denies fever or nausea. Her current presentation is similar to UTIs in the past. The history is provided by the patient. Review of Systems Constitutional: Negative for chills, fatigue and fever. Respiratory: Negative for shortness of breath. Cardiovascular: Negative for chest pain. Gastrointestinal: Negative for abdominal pain, diarrhea, nausea and vomiting. Genitourinary: Positive for dysuria and hematuria. Negative for decreased urine volume, difficulty urinating, flank pain, frequency and urgency. All other systems reviewed and are negative. Objective BP 145/86 Pulse 101 Temp 36.9 ?C (98.5 ?F) Resp 24 Wt (!) 157.1 kg (346 lb 6.4 oz) LMP 09/20/2007 SpO2 95% BMI 63.36 kg/m? PAST MEDICAL HISTORY Diagnosis Date Achilles bursitis or tendinitis 10/11/2013 Allergic rhinitis 07/11/2009 Allergic rhinitis, cause unspecified 07/11/[address] Feliz Obesity 04/12/[address] Charles evaluated; now follows with Dr. 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 olopatadine (PATANOL) 0.1 % ophthalmic solution 1 TO 2 DROPS TO EACH EYE TWICE DAILY NEEDED warfarin (COUMADIN) 7.5 mg tablet Take 11.25 mg Mon, Wed, Fri. Take 7.5 mg all other days hydroCHLOROthiazide (HYDRODIURIL, ESIDRIX) 12.5 mg tablet Take 1 tablet by mouth once daily. (; [facility]) losartan (COZAAR) 50 mg tablet Take 75 mg by mouth once daily. Cholecalciferol, Vitamin D3, 1,000 unit cap Take 2 capsules by mouth once daily. (? dose) nitrofurantoin monohydrate and macrocrystal (MACROBID) 100 mg capsule Take 1 capsule by mouth twice daily for 5 days. phenazopyridine (PYRIDIUM) 200 mg tablet Take 1 tablet by mouth three times daily as needed. FAMILY HISTORY Problem Relation Age of Onset other (Serosis [Other]) Mother Stroke Maternal Grandmother Alcohol/Drug Father Social History Tobacco Use Smoking status: Never Smokeless tobacco: Never Vaping Use Vaping Use: Never used Substance Use Topics Alcohol use: No Comment: rarely Drug use: No Physical Exam Vitals reviewed. Constitutional: General: She is not in acute distress. Appearance: Normal appearance. She is not ill-appearing or toxic-appearing. Cardiovascular: Rate and Rhythm: Normal rate and regular rhythm. Pulmonary: Effort: Pulmonary effort is normal. No respiratory distress. Breath sounds: Normal breath sounds. Abdominal: General: There is no distension. Palpations: Abdomen is soft. Tenderness: There is no abdominal tenderness. There is no right CVA tenderness or left CVA tenderness. Neurological: General: No focal deficit present. Mental Status: She is alert and oriented to person, place, and time. Mental status is at baseline. Psychiatric: Mood and Affect: Mood normal. Behavior: Behavior normal. Thought Content: Thought content normal. Judgment: Judgment normal. Office Visit on 01/17/2023 Component Date Value Ref Range Status GLUCOSE UA (POCT) 01/17/2023 Negative Negative mg/dL Final BILIRUBIN UA (POCT) 01/17/2023 Small (A) Negative Final KETONE UA (POCT) 01/17/2023 Trace Negative mg/dL Final SPECIFIC GRAVITY UA (POCT) 01/17/2023 1.025 1.005 - 1.030 Final HEMOGLOBIN/BLOOD UA (POCT) 01/17/2023 Large (A) Negative Final PH UA (POCT) 01/17/2023 6.0 4.5 - 8.0 Final PROTEIN UA (POCT) 01/17/2023 >=300 (A) Negative mg/dL Final UROBILINOGEN UA (POCT) 01/17/2023 1.0 Normal E.U./dL Final NITRITE UA (POCT) 01/17/2023 Positive (A) Negative Final LEUKOCYTES UA (POCT) 01/17/2023 Large (A) Negative Final COLOR UA (POCT) 01/17/2023 Red Final CLARITY UA (POCT) 01/17/2023 Cloudy Final Last labs for kidney function: Component Latest Ref Rng AND Units 03/02/2022 Protein, Total 6.3 - 8.0 g/dL 7.2 Albumin 3.9 - 4.9 g/dL 3.9 Calcium 8.5 - 10.2 mg/dL 9.2 Bilirubin, Total 0.2 - 1.3 mg/dL 0.5 Alkaline Phosphatase 34 - 123 U/L 91 AST 13 - 35 U/L 19 ALT 7 - 38 U/L 17 Glucose 74 - 99 mg/dL 1 (more content not included)... [facility] 01-17-2023 Instructions Renetta Robles APRN.FOLDER MACHINE ADJUSTER - 01/17/2023 2:22 PM EDT ASSESSMENT/PLAN: 1. Urinary tract infection with hematuria, site unspecified - ICD9: 599.0, 599.70, ICD10: N39.0, R31.9 (primary diagnosis) acute - UA positive for ange esterase, hematuria, proteinuria, and nitrates - Culture sent - Start Macrobid - Pyridium as needed - Increase fluid intake - Patient educated on antibiotic effect on INR with coumadin - Patient education for prevention given 2. Burning with urination - ICD9: 788.1, ICD10: R30.0 - See above - URINE CULTURE E Marjorie [employer] Student TEACHING PROVIDER (Physician/PA/FRUIT PICKER MACHINE OPERATOR) NOTE OF PERSONAL INVOLVEMENT IN CARE: I have personally seen and examined the patient and performed the medical decision-making components. I have reviewed the Advanced Practice Registered Nurse (FRUIT PICKER MACHINE OPERATOR) Student's documentation and verified the findings in the note as written. Any additions or changes are noted in bold/italics. Signature: Renetta Robles Date: 01/17/2023 Time: 2:[address] [facility] PATIENT INFO BLADDER INFECTION OVERVIEW Bladder infections are one of the most common infections, causing symptoms of burning with urination and needing to urinate frequently. A bladder infection is a type of urinary tract infection (UTI). Bladder infections are more common is women than men. Most women have an uncomplicated bladder infection that is easily treated with a short course of antibiotics. In men, bladder infections may also affect the prostate gland, and a longer course of treatment may be needed. BLADDER INFECTION CAUSES The urinary tract includes the kidneys (which filter urine), ureters (the tube that carries urine from the kidneys to the bladder), the bladder (which stores urine), and urethra (the tube that carries urine out of the bladder). Bacteria do not normally live in these areas. However, bacteria normally live close to the urethra in women and men who are not circumcised. Bladder infections occur when bacteria travel up the urethra into the bladder. Factors that increase the risk of developing a bladder infection include: Vaginal sex Use of spermicides History of past bladder infections Diabetes In men, not being circumcised or having anal sex increase the risk of bladder infections. BLADDER INFECTION SYMPTOMS The typical symptoms of a bladder infection include: Pain or burning when urinating Frequent need to urinate Urgent need to urinate Blood in the urine Fever, back pain, nausea, or vomiting are not common symptoms of a bladder infection, but can occur in people with a kidney infection (pyelonephritis). If you have these symptoms, you should call your doctor or nurse immediately. Is it a bladder infection or something else? -- Burning with urination can also occur in people with vaginitis (eg, yeast infection) or urethritis (inflammation of the urethra). For this reason, it is important to call your healthcare provider before assuming you have a bladder infection. BLADDER INFECTION DIAGNOSIS Simple bladder infections are usually diagnosed based upon your symptoms alone. However, most patients, especially those who have bladder infection symptoms for the first time, should see a healthcare provider for urine testing. Urine culture -- A urine culture is a test that uses a sample of urine to try and grow bacteria in a laboratory. It usually requires about 48 hours to get results. However, a urine culture is not always required to diagnose a bladder infection. Urine culture is often recommended if: You have never had a bladder infection before You have symptoms that are not typical for bladder infection You have had resistant bladder infections before You have frequent bladder infections You do not begin to feel better within 24 to 48 hours after starting antibiotics You are BLADDER INFECTION TREATMENT Bladder infection -- In young, healthy adolescents and adults with a bladder infection, the usual treatment includes a three to seven day course of antibiotics. The typical drugs chosen are: trimethoprim-sulfamethoxazole (Bactrim ), nitrofurantoin (Macrobid ), ciprofloxacin (Cipro ) or levofloxacin (Levaquin ). In men, the infection may involve your prostate gland and treatment is usually given for at least 7 days. Your symptoms should begin to resolve within one day after starting treatment. It is important to take the full course of antibiotics to completely eliminate the infection. If your symptoms persist for more than two or three days after starting treatment, call your healthcare provider. If needed, you can take a prescription medication that numbs the bladder and urethra (phenazopyridine [Pyridium ]) to reduce the burning pain of some UTIs. A similar medication is available without a prescription (eg, Uristat). Both medications change the color of the urine (usually blue or orange) and can interfere with laboratory testing. You should not take these medications for more than 48 hours due to the risk of side effects. These medications do not treat the infection and must be taken along with an antibiotic. Some providers recommend drinking more fluids while treating bladder infections to help flush bacteria from the bladder. Others believe that drinking more fluids may dilute the antibiotic in the bladder and make the medication less effective. No studies have been performed to address this issue. There are also no good studies on the effectiveness of cranberry juice for treating a bladder infection; we do not recommend using cranberry juice to treat bladder infections. Follow-up care -- Follow-up testing is not needed in healthy, young men or women with a bladder infection if symptoms resolve. women are usually asked to have a repeat urine culture one to two weeks after treatment has ended to make sure the bacteria are no longer in the urine. RECURRENT BLADDER INFECTIONS Bladder infections versus other causes -- Some adults, especially women, develop bladder infections frequently. In this case, it is important to confirm that your symptoms (eg, pain or burning, frequency, and urgency) are caused by a bladder infection. Symptoms are usually similar from one infection to another. The best way to confirm an infection is to have a urine culture. If your urine culture is negative for infection, other causes of pain, burning, and frequency should be investigated. There is no reason to take antibiotics if your urine culture is negative. Need for further testing -- If you continue to develop bladder infections, you may require further testing. If you continue to notice blood in your urine after your bladder infection has cleared, you should have further testing. Preventing recurrent UTIs -- Women with recurrent urinary tract infections may be advised to take steps to prevent bladder infections, including one or more of the following: Changes in control -- Women who develop frequent bladder infections and use spermicides, particularly those who also use a diaphragm, may be encouraged to use an alternate method of control. Cranberry products -- Taking cranberry juice or cranberry tablets has been promoted as one way to help prevent frequent bladder infections. However, this has not been proven. Drinking more fluid and urinating after intercourse -- Although studies have not proven that drinking more fluids or urinating soon after intercourse can prevent infection, some healthcare providers recommend these measures since they are not harmful. Drinking more fluid may help to wash out bacteria that enter the bladder. Postmenopausal women -- Postmenopausal women who develop recurrent bladder infections may benefit from using vaginal estrogen. Vaginal estrogen is available in a flexible ring that is worn in the vagina for three months (eg, Estring ), a small tablet (Vagifem ), or a cream (eg, Premarin or Estrace ). Vaginal estrogen is discussed in more detail in a separate topic review. Antibiotics -- A preventive antibiotic treatment may be recommended if you repeatedly develop bladder infections and have not responded to other preventive measures. Antibiotics are highly effective in preventing recurrent bladder infections and can be taken in several different ways. Preventive antibiotic -- You can take a low dose of an antibiotic once per day or three times per week for six months to several years. Antibiotics following intercourse -- In women who develop urinary tract infections after sex, taking a single low dose antibiotic after intercourse can help to prevent bladder infections. Self-treatment -- A plan to begin antibiotics at the first sign of a bladder infection may be recommended in some situations. Before starting this regimen, it is important that you have had testing (urine cultures) to confirm that your symptoms are caused by a bladder infection; some people have symptoms of a bladder infection but do not actually have an infection. documented in this encounter [facility] 01-17-2023 History of Present illness Narrative This note was created using Plas[employer]. Subjective Mary Jo Lin is a 62 year old female. Patient presents with dysuria that began this afternoon. Patient reports she felt some discomfort while voiding earlier today, but at 13:00 she voided and had much more severe pain and burning. Her urine is darker than usual. She has not had tried any treatment at home for symptoms. She denies fever or nausea. Her current presentation is similar to UTIs in the past. The history is provided by the patient. Review of Systems Constitutional: Negative for chills, fatigue and fever. Respiratory: Negative for shortness of breath. Cardiovascular: Negative for chest pain. Gastrointestinal: Negative for abdominal pain, diarrhea, nausea and vomiting. Genitourinary: Positive for dysuria and hematuria. Negative for decreased urine volume, difficulty urinating, flank pain, frequency and urgency. All other systems reviewed and are negative. Objective BP 145/86 Pulse 101 Temp 36.9 C (98.5 F) Resp 24 Wt (!) 157.1 kg (346 lb 6.4 oz) LMP 09/20/2007 SpO2 95% BMI 63.36 kg/m PAST MEDICAL HISTORY Diagnosis Date Achilles bursitis or tendinitis 10/11/2013 Allergic rhinitis 07/11/2009 Allergic rhinitis, cause unspecified 07/11/[address] Feliz Obesity 04/12/[address] Charles evaluated; now follows with Dr. 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 olopatadine (PATANOL) 0.1 % ophthalmic solution 1 TO 2 DROPS TO EACH EYE TWICE DAILY NEEDED warfarin (COUMADIN) 7.5 mg tablet Take 11.25 mg Mon, Wed, Fri. Take 7.5 mg all other days hydroCHLOROthiazide (HYDRODIURIL, ESIDRIX) 12.5 mg tablet Take 1 tablet by mouth once daily. (; [facility]) losartan (COZAAR) 50 mg tablet Take 75 mg by mouth once daily. Cholecalciferol, Vitamin D3, 1,000 unit cap Take 2 capsules by mouth once daily. (? dose) nitrofurantoin monohydrate and macrocrystal (MACROBID) 100 mg capsule Take 1 capsule by mouth twice daily for 5 days. phenazopyridine (PYRIDIUM) 200 mg tablet Take 1 tablet by mouth three times daily as needed. FAMILY HISTORY Problem Relation Age of Onset other (Serosis [Other]) Mother Stroke Maternal Grandmother Alcohol/Drug Father Social History Tobacco Use Smoking status: Never Smokeless tobacco: Never Vaping Use Vaping Use: Never used Substance Use Topics Alcohol use: No Comment: rarely Drug use: No Physical Exam Vitals reviewed. Constitutional: General: She is not in acute distress. Appearance: Normal appearance. She is not ill-appearing or toxic-appearing. Cardiovascular: Rate and Rhythm: Normal rate and regular rhythm. Pulmonary: Effort: Pulmonary effort is normal. No respiratory distress. Breath sounds: Normal breath sounds. Abdominal: General: There is no distension. Palpations: Abdomen is soft. Tenderness: There is no abdominal tenderness. There is no right CVA tenderness or left CVA tenderness. Neurological: General: No focal deficit present. Mental Status: She is alert and oriented to person, place, and time. Mental status is at baseline. Psychiatric: Mood and Affect: Mood normal. Behavior: Behavior normal. Thought Content: Thought content normal. Judgment: Judgment normal. Office Visit on 01/17/2023 Component Date Value Ref Range Status GLUCOSE UA (POCT) 01/17/2023 Negative Negative mg/dL Final BILIRUBIN UA (POCT) 01/17/2023 Small (A) Negative Final KETONE UA (POCT) 01/17/2023 Trace Negative mg/dL Final SPECIFIC GRAVITY UA (POCT) 01/17/2023 1.025 1.005 - 1.030 Final HEMOGLOBIN/BLOOD UA (POCT) 01/17/2023 Large (A) Negative Final PH UA (POCT) 01/17/2023 6.0 4.5 - 8.0 Final PROTEIN UA (POCT) 01/17/2023 >=300 (A) Negative mg/dL Final UROBILINOGEN UA (POCT) 01/17/2023 1.0 Normal E.U./dL Final NITRITE UA (POCT) 01/17/2023 Positive (A) Negative Final LEUKOCYTES UA (POCT) 01/17/2023 Large (A) Negative Final COLOR UA (POCT) 01/17/2023 Red Final CLARITY UA (POCT) 01/17/2023 Cloudy Final Last labs for kidney function: Component Latest Ref Rng & Units 03/02/2022 Protein, Total 6.3 - 8.0 g/dL 7.2 Albumin 3.9 - 4.9 g/dL 3.9 Calcium 8.5 - 10.2 mg/dL 9.2 Bilirubin, Total 0.2 - 1.3 mg/dL 0.5 Alkaline Phosphatase 34 - 123 U/L 91 AST 13 - 35 U/L 19 ALT 7 - 38 U/L 17 Glucose 74 - 99 mg/dL 107 (H) BUN 7 - 21 mg/dL 16 Creatinine 0.58 - 0.96 mg/dL 0.76 Sodium 136 - 144 mmol/L 138 Potassium 3.7 - 5.1 mmol/L 4.4 Chloride 97 - 105 mmol/L 104 CO2 22 - 30 mmol/L 22 Anion Gap 9 - 18 mmol/L 12 eGFR >=60 mL/min/1.73m 89 Assessment and Plan ASSESSMENT/PLAN: 1. Urinary tract infection with hematuria, site unspecified - ICD9: 599.0, 599.70, ICD10: N39.0, R31.9 (primary diagnosis) acute - UA positive for ange esterase, hematuria, proteinuria, and nitrates - Culture sent - Start Macrobid - Pyridium as needed - Increase fluid intake - Patient educated on antibiotic effect on INR with coumadin - Patient education for prevention given 2. Burning with urination - ICD9: 788.1, ICD10: R30.0 - See above - URINE CULTURE E Marjorie [employer] Student TEACHING PROVIDER (Physician/PA/FRUIT PICKER MACHINE OPERATOR) NOTE OF PERSONAL INVOLVEMENT IN CARE: I have personally seen and examined the patient and performed the medical decision-making components. I have reviewed the Advanced Practice Registered Nurse (FRUIT PICKER MACHINE OPERATOR) Student's documentation and verified the findings in the note as written. Any additions or changes are noted in bold/italics. Signature: Renetta Robles Date: 01/17/2023 Time: 2:21 PM documented in this encounter [facility] 12-20-2022 Note HNO ID: [id number] Author: Tosha Rivas RN Service: ? Author Type: ? Type: Progress Notes Filed: 12/20/2022 4:22 PM Note Text: pcp agrees with information [facility] 12-20-2022 History of Present illness Narrative pcp agrees with information patient had inr completed at [facility] patients inr is 2.5 (patients inr range is 2.0-3.0) patient is currently taking 11.25mg Mon,Wed,Fri and 7.5mg all other days patients last dose change was on 11/09/20 due to a low level of 1.7 (dose at that time was 11.25mg Mon,Wed and 7.5mg all other days) patient has had no changes in medication and no missed doses and no change in diet Advised patient to continue on the same dose(s) and that they would only be contacted regarding dosage and follow up instructions after review with provider, if a change is needed. Written instructions given and patient verbalized understanding. Presently scheduled in 1 month (01/24/23) for follow up INR. documented in this encounter [facility] 12-20-2022 Note HNO ID: [id number] Author: Tosha Rivas RN Service: ? Author Type: ? Type: Progress Notes Filed: 12/20/2022 4:22 PM Note Text: patient had inr completed at [facility] patients inr is 2.5 (patients inr range is 2.0-3.0) patient is currently taking 11.25mg Mon,Wed,Fri and 7.5mg all other days patients last dose change was on 11/09/20 due to a low level of 1.7 (dose at that time was 11.25mg Mon,Wed and 7.5mg all other days) patient has had no changes in medication and no missed doses and no change in diet Advised patient to continue on the same dose(s) and that they would only be contacted regarding dosage and follow up instructions after review with provider, if a change is needed. Written instructions given and patient verbalized understanding. Presently scheduled in 1 month (01/24/23) for follow up INR. [facility] 11-22-2022 Note HNO ID: [id number] Author: Tosha Rivas RN Service: ? Author Type: ? Type: Progress Notes Filed: 11/22/2022 4:22 PM Note Text: pcp agrees with information [facility] 11-22-2022 Note HNO ID: [id number] Author: Tosha Rivas RN Service: ? Author Type: ? Type: Progress Notes Filed: 11/22/2022 4:22 PM Note Text: patient had inr completed at [facility] patients inr is 2.8 (patients inr range is 2.0-3.0) patient is currently taking 11.25mg Mon,Wed,Fri and 7.5mg all other days patients last dose change was on 11/09/20 due to a low level of 1.7 (dose at that time was 11.25mg Mon,Wed and 7.5mg all other days) patient has had no changes in medication and no missed doses and no change in diet Advised patient to continue on the same dose(s) and that they would only be contacted regarding dosage and follow up instructions after review with provider, if a change is needed. Written instructions given and patient verbalized understanding. Presently scheduled in 4 weeks (12/20/22) for follow up INR. [facility] 11-04-2022 Note HNO ID: [id number] Author: Tosha Rivas RN Service: ? Author Type: ? Type: Progress Notes Filed: 11/04/2022 5:04 PM Note Text: pcp agrees with information [facility] 11-04-2022 History of Present illness Narrative pcp agrees with information patient had inr completed at [facility] patients inr is 3.0 (patients inr range is 2.0-3.0) patient is currently taking 11.25mg Mon,Wed,Fri and 7.5mg all other days patients last dose change was on 11/09/20 due to a low level of 1.7 (dose at that time was 11.25mg Mon,Wed and 7.5mg all other days) patient has had no changes in medication and no missed doses and no change in diet Advised patient to continue on the same dose(s) and that they would only be contacted regarding dosage and follow up instructions after review with provider, if a change is needed. Written instructions given and patient verbalized understanding. Presently scheduled in 3 weeks (11/22/22) for follow up INR due to the cc will be closed at the 4-5 week contreras documented in this encounter [facility] 11-01-2022 Note HNO ID: [id number] Author: Marleen Cameron MD Service: ? Author Type: Physician Type: Progress Notes Filed: 11/01/2022 6:25 PM Note Text: This note was created using [employer]G Technology[employer]. Subjective Mary Jo Lin is a 62 year old female. Patient presents with: F/U 6 months SUBJECTIVE: Mary Jo Lin is a 62 year old year old lady here today for 6 month follow up appointment for review of medical conditions. Last saw Dr. Mendes in 2020 when had EMB and IUD placed. Told good for 5 years. PAST MEDICAL HISTORY Diagnosis Date Achilles bursitis or tendinitis 10/11/2013 Allergic rhinitis 07/11/2009 Allergic rhinitis, cause unspecified 07/11/[address] Feliz Obesity 04/12/[address] Charles evaluated; now follows with Dr. 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 Take 7.5 mg all other days mometasone (NASONEX) 50 mcg/actuation nasal spray Use 2 Sprays in each nostril once daily. olopatadine (PATANOL) 0.1 % ophthalmic solution 1 TO 2 DROPS TO EACH EYE TWICE DAILY NEEDED hydroCHLOROthiazide (HYDRODIURIL, ESIDRIX) 12.5 mg tablet Take 1 tablet by mouth once daily. (; [facility]) losartan (COZAAR) 50 mg tablet Take 75 mg by mouth once daily. Cholecalciferol, Vitamin D3, 1,000 unit cap Take 2 capsules by mouth once daily. (? dose) No current facility-administered medications for this visit. Review of Systems Objective BP 142/60 Pulse 85 Temp 36.8 ?C (98.2 ?F) Resp 18 Wt (!) 156 kg (344 lb) LMP 09/20/2007 SpO2 99% BMI 62.92 kg/m? Last 5 Encounter Wt Readings: Date: Wt: 11/01/2022 156 kg (344 lb) 03/27/2022 155.6 kg (343 lb) 03/12/2022 155.1 kg (342 lb) 07/17/2021 155.1 kg (342 lb) 09/25/2020 157.9 kg (348 lb) No waist measurement recorded Estimated body mass index is 62.92 kg/m? as calculated from the following: Height as of 03/27/22: 157.5 cm (5' 2 ). Weight as of this encounter: 156 kg (344 lb). Last 5 Encounter BP Readings: Date: BP: 11/01/2022 142/60 03/27/2022 164/90 03/12/2022 138/86 07/17/2021 128/72 01/12/2021 130/80[Radial BP[ 11/01/22 1532 11/01/22 1722 BP: 142/60 138/72 Pulse: 85 Resp: 18 Temp: 36.8 ?C (98.2 ?F) SpO2: 99% Weight: (!) 156 kg (344 lb) Physical Exam Constitutional: Appearance: Normal appearance. HENT: Head: Normocephalic. Eyes: Conjunctiva/sclera: Conjunctivae normal. Cardiovascular: Rate and Rhythm: Normal rate and regular rhythm. Heart sounds: Normal heart sounds. Pulmonary: Effort: Pulmonary effort is normal. Breath sounds: Normal breath sounds. Musculoskeletal: Right lower leg: Edema (Controlled with stockings) present. Left lower leg: Edema (controlled with stockings) present. Comments: Wears compression stockings Skin: General: Skin is warm and dry. Neurological: General: No focal deficit present. Mental Status: She is alert and oriented to person, place, and time. Psychiatric: Mood and Affect: Mood normal. Behavior: Behavior normal. Thought Content: Thought content normal. Judgment: Judgment normal. Last labs noted Assessment and Plan Encounter Diagnosis ICD-10-CM 1. Essential hypertension I10 COMP METABOLIC PANEL CBC 2. Allergic rhinitis, unspecified seasonality, unspecified trigger J30.9 mometasone (NASONEX) 50 mcg/actuation nasal spray 3. Acute atopic conjunctivitis of both eyes H10.13 olopatadine (PATANOL) 0.1 % ophthalmic solution 4. Vitamin D deficiency E55.9 VITAMIN D 25 HYDROXY 5. Anticoagulated on Coumadin Z79.01 6. Edema of both legs R60.0 7. Morbid obesity with BMI of 60.0-69.9, adult (HCC) E66.01 Z68.44 8. Encounter for long-term current use of medication Z79.899 COMP METABOLIC PANEL CBC LIPID PANEL BASIC Above issues addressed with patient. Stable on current meds. Continue present management. Further evaluation and treatment as indicated. Patient involved in shared decision making for management of medical issues. History and medications reviewed. Epic updated as needed Refills and/or prescriptions taken care of and meds adjusted as indicated after reviewed history, exam and labs. Health Maintenance reviewed. Updated record and/or ordered tests as recorded. Encouraged on efforts at healthy diet and regular exercise and adequate sleep. Needs to keep working on diet and exercise with lifestyle changes for effective weight loss as well as prevention of DM, and control of BP and lipids. Weight slowly trending down the past couple years. Marleen Cameron MD [facility] 11-01-2022 History of Present illness Narrative This note was created using NoteWriter. Subjective Mary Jo Lin is a 62 year old female. Patient presents with: F/U 6 months SUBJECTIVE: Mary Jo Lin is a 62 year old year old lady here today for 6 month follow up appointment for review of medical conditions. Last saw Dr. Mendes in 2020 when had EMB and IUD placed. Told good for 5 years. PAST MEDICAL HISTORY Diagnosis Date Achilles bursitis or tendinitis 10/11/2013 Allergic rhinitis 07/11/2009 Allergic rhinitis, cause unspecified 07/11/[address] Feliz Obesity 04/12/[address] Charles evaluated; now follows with Dr. Post (September 2017) Other pulmonary embolism and infarction ([facility]) 10/07/2014 Plantar fasciitis 04/12/2009 Toxic effect of latex(989.82) 07/11/2009 Current Outpatient Medications Medication Sig warfarin (COUMADIN) 7.5 mg tablet Take 11.25 mg Mon, Wed, Fri. Take 7.5 mg all other days mometasone (NASONEX) 50 mcg/actuation nasal spray Use 2 Sprays in each nostril once daily. olopatadine (PATANOL) 0.1 % ophthalmic solution 1 TO 2 DROPS TO EACH EYE TWICE DAILY NEEDED hydroCHLOROthiazide (HYDRODIURIL, ESIDRIX) 12.5 mg tablet Take 1 tablet by mouth once daily. (; [facility]) losartan (COZAAR) 50 mg tablet Take 75 mg by mouth once daily. Cholecalciferol, Vitamin D3, 1,000 unit cap Take 2 capsules by mouth once daily. (? dose) No current facility-administered medications for this visit. Review of Systems Objective BP 142/60 Pulse 85 Temp 36.8 C (98.2 F) Resp 18 Wt (!) 156 kg (344 lb) LMP 09/20/2007 SpO2 99% BMI 62.92 kg/m Last 5 Encounter Wt Readings: Date: Wt: 11/01/2022 156 kg (344 lb) 03/27/2022 155.6 kg (343 lb) 03/12/2022 155.1 kg (342 lb) 07/17/2021 155.1 kg (342 lb) 09/25/2020 157.9 kg (348 lb) No waist measurement recorded Estimated body mass index is 62.92 kg/m as calculated from the following: Height as of 03/27/22: 157.5 cm (5' 2 ). Weight as of this encounter: 156 kg (344 lb). Last 5 Encounter BP Readings: Date: BP: 11/01/2022 142/60 03/27/2022 164/90 03/12/2022 138/86 07/17/2021 128/72 01/12/2021 130/80[Radial BP[ 11/01/22 1532 11/01/22 1722 BP: 142/60 138/72 Pulse: 85 Resp: 18 Temp: 36.8 C (98.2 F) SpO2: 99% Weight: (!) 156 kg (344 lb) Physical Exam Constitutional: Appearance: Normal appearance. HENT: Head: Normocephalic. Eyes: Conjunctiva/sclera: Conjunctivae normal. Cardiovascular: Rate and Rhythm: Normal rate and regular rhythm. Heart sounds: Normal heart sounds. Pulmonary: Effort: Pulmonary effort is normal. Breath sounds: Normal breath sounds. Musculoskeletal: Right lower leg: Edema (Controlled with stockings) present. Left lower leg: Edema (controlled with stockings) present. Comments: Wears compression stockings Skin: General: Skin is warm and dry. Neurological: General: No focal deficit present. Mental Status: She is alert and oriented to person, place, and time. Psychiatric: Mood and Affect: Mood normal. Behavior: Behavior normal. Thought Content: Thought content normal. Judgment: Judgment normal. Last labs noted Assessment and Plan Encounter Diagnosis ICD-10-CM 1. Essential hypertension I10 COMP METABOLIC PANEL CBC 2. Allergic rhinitis, unspecified seasonality, unspecified trigger J30.9 mometasone (NASONEX) 50 mcg/actuation nasal spray 3. Acute atopic conjunctivitis of both eyes H10.13 olopatadine (PATANOL) 0.1 % ophthalmic solution 4. Vitamin D deficiency E55.9 VITAMIN D 25 HYDROXY 5. Anticoagulated on Coumadin Z79.01 6. Edema of both legs R60.0 7. Morbid obesity with BMI of 60.0-69.9, adult (HCC) E66.01 Z68.44 8. Encounter for long-term current use of medication Z79.899 COMP METABOLIC PANEL CBC LIPID PANEL BASIC Above issues addressed with patient. Stable on current meds. Continue present management. Further evaluation and treatment as indicated. Patient involved in shared decision making for management of medical issues. History and medications reviewed. Epic updated as needed Refills and/or prescriptions taken care of and meds adjusted as indicated after reviewed history, exam and labs. Health Maintenance reviewed. Updated record and/or ordered tests as recorded. Encouraged on efforts at healthy diet and regular exercise and adequate sleep. Needs to keep working on diet and exercise with lifestyle changes for effective weight loss as well as prevention of DM, and control of BP and lipids. Weight slowly trending down the past couple years. Marleen Cameron MD documented in this encounter [facility] 11-01-2022 Note HNO ID: [id number] Author: Tosha Rivas RN Service: ? Author Type: ? Type: Progress Notes Filed: 11/04/2022 5:04 PM Note Text: patient had inr completed at [facility] patients inr is 3.0 (patients inr range is 2.0-3.0) patient is currently taking 11.25mg Mon,Wed,Fri and 7.5mg all other days patients last dose change was on 11/09/20 due to a low level of 1.7 (dose at that time was 11.25mg Mon,Wed and 7.5mg all other days) patient has had no changes in medication and no missed doses and no change in diet Advised patient to continue on the same dose(s) and that they would only be contacted regarding dosage and follow up instructions after review with provider, if a change is needed. Written instructions given and patient verbalized understanding. Presently scheduled in 3 weeks (11/22/22) for follow up INR due to the cc will be closed at the 4-5 week contreras [facility] 11-01-2022 Miscellaneous Notes patients orders for coumadin clinic inr's has at this time. new order has been pended for approval if possible so that patient can continue to get inr's completed thru the coumadin clinic. coumadin clinic nurse only needs called if order can not be approved. documented in this encounter [facility] 09-26-2022 Note HNO ID: [id number] Author: Tosha Rivas RN Service: ? Author Type: ? Type: Progress Notes Filed: 09/26/2022 4:37 PM Note Text: pcp agrees with information [facility] 09-26-2022 Note HNO ID: [id number] Author: Tosha Rivas RN Service: ? Author Type: ? Type: Progress Notes Filed: 09/26/2022 4:37 PM Note Text: patient had inr completed at [facility] patients inr is 2.6 (patients inr range is 2.0-3.0) patient is currently taking 11.25mg Mon,Wed,Fri and 7.5mg all other days patients last dose change was on 11/09/20 due to a low level of 1.7 (dose at that time was 11.25mg Mon,Wed and 7.5mg all other days) patient has had no changes in medication and no missed doses and no change in diet Advised patient to continue on the same dose(s) and that they would only be contacted regarding dosage and follow up instructions after review with provider, if a change is needed. Written instructions given and patient verbalized understanding. Presently scheduled in 5 weeks (11/01/22 - pt has appt with pcp this day also) for follow up INR. [facility] 08-29-2022 Note HNO ID: [id number] Author: Margie Gonzalez APRN.CNS Service: ? Author Type: Nurse Specialist Type: Progress Notes Filed: 08/29/2022 4:20 PM Note Text: Continue with Coumadin dose unchanged and check INR in 4 weeks [facility] 08-29-2022 History of Present illness Narrative Continue with Coumadin dose unchanged and check INR in 4 weeks patient had inr completed at [facility] patients inr is 2.8 (patients inr range is 2.0-3.0) patient is currently taking 11.25mg Mon,Wed,Fri and 7.5mg all other days patients last dose change was on 11/09/20 due to due to a low level of 1.7 (dose at that time was 11.25mg Mon,Wed and 7.5mg all other days) patient has had no changes in medication and no missed doses and no change in diet Advised patient to continue on the same dose(s) and that they would only be contacted regarding dosage and follow up instructions after review with provider, if a change is needed. Written instructions given and patient verbalized understanding. Presently scheduled in 4 weeks (09/26/22) for follow up INR. documented in this encounter [facility] 08-29-2022 Note HNO ID: [id number] Author: Tosha Rivas RN Service: ? Author Type: ? Type: Progress Notes Filed: 08/29/2022 4:20 PM Note Text: patient had inr completed at [facility] patients inr is 2.8 (patients inr range is 2.0-3.0) patient is currently taking 11.25mg Mon,Wed,Fri and 7.5mg all other days patients last dose change was on 11/09/20 due to due to a low level of 1.7 (dose at that time was 11.25mg Mon,Wed and 7.5mg all other days) patient has had no changes in medication and no missed doses and no change in diet Advised patient to continue on the same dose(s) and that they would only be contacted regarding dosage and follow up instructions after review with provider, if a change is needed. Written instructions given and patient verbalized understanding. Presently scheduled in 4 weeks (09/26/22) for follow up INR. [facility] 08-02-2022 Note HNO ID: [id number] Author: Tosha Rivas RN Service: ? Author Type: ? Type: Progress Notes Filed: 08/02/2022 3:35 PM Note Text: pcp agrees [facility] 08-02-2022 Note HNO ID: [id number] Author: Tosha Rivas RN Service: ? Author Type: ? Type: Progress Notes Filed: 08/02/2022 3:35 PM Note Text: patient had inr completed at [facility] patients inr is 2.5 (patients inr range is 2.0-3.0) patient is currently taking 11.25mg Mon,Wed,Fri and 7.5mg all other days patients last dose change was on 11/09/20 due to a low level of 1.7 (dose at that time was 11.25mg Mon,Wed and 7.5mg all other days) patient has had no changes in medication and no missed doses and no change in diet Advised patient to continue on the same dose(s) and that they would only be contacted regarding dosage and follow up instructions after review with provider, if a change is needed. Written instructions given and patient verbalized understanding. Presently scheduled in 4 weeks (08/29/22) for follow up INR. [facility] 08-02-2022 History of Present illness Narrative pcp agrees patient had inr completed at [facility] patients inr is 2.5 (patients inr range is 2.0-3.0) patient is currently taking 11.25mg Mon,Wed,Fri and 7.5mg all other days patients last dose change was on 11/09/20 due to a low level of 1.7 (dose at that time was 11.25mg Mon,Wed and 7.5mg all other days) patient has had no changes in medication and no missed doses and no change in diet Advised patient to continue on the same dose(s) and that they would only be contacted regarding dosage and follow up instructions after review with provider, if a change is needed. Written instructions given and patient verbalized understanding. Presently scheduled in 4 weeks (08/29/22) for follow up INR. documented in this encounter [facility] 07-05-2022 Note HNO ID: [id number] Author: Tosha Rivas RN Service: ? Author Type: ? Type: Progress Notes Filed: 07/05/2022 3:16 PM Note Text: pcp agrees with information [facility] 07-05-2022 Note HNO ID: [id number] Author: Tosha Rivas RN Service: ? Author Type: ? Type: Progress Notes Filed: 07/05/2022 3:16 PM Note Text: patient had inr completed at [facility] patients inr is 2.9 (patients inr range is 2.0-3.0) patient is currently taking 11.25mg Mon,Wed,Fri and 7.5mg all other days patients last dose change was on 11/09/20 due to a low level of 1.7 (dose at that time was 11.25mg Mon,Wed and 7.5mg all other days) patient has had no changes in medication and no missed doses and no change in diet Advised patient to continue on the same dose(s) and that they would only be contacted regarding dosage and follow up instructions after review with provider, if a change is needed. Written instructions given and patient verbalized understanding. Presently scheduled in 4 weeks (08/02/22) for follow up INR. [facility] 06-10-2022 Note HNO ID: [id number] Author: Tosha Rivas RN Service: ? Author Type: ? Type: Progress Notes Filed: 06/10/2022 2:57 PM Note Text: pcp agrees [facility] 06-10-2022 History of Present illness Narrative pcp agrees patient had inr completed at [facility] patients inr is 2.4 (patients inr range is 2.0-3.0) patient is currently taking 11.25mg Mon,Wed,Fri and 7.5mg all other days patients last dose change was on 11/09/20 due to a low level of 1.7 (dose at that time was11.25mg Mon,Wed and 7.5mg all other days) patient has had no changes in medication and no missed doses and no change in diet Advised patient to continue on the same dose(s) and that they would only be contacted regarding dosage and follow up instructions after review with provider, if a change is needed. Written instructions given and patient verbalized understanding. Presently scheduled in 4 weeks (07/05/22) for follow up INR. documented in this encounter [facility] 06-07-2022 Note HNO ID: [id number] Author: Tosha Rivas RN Service: ? Author Type: ? Type: Progress Notes Filed: 06/10/2022 2:57 PM Note Text: patient had inr completed at [facility] patients inr is 2.4 (patients inr range is 2.0-3.0) patient is currently taking 11.25mg Mon,Wed,Fri and 7.5mg all other days patients last dose change was on 11/09/20 due to a low level of 1.7 (dose at that time was11.25mg Mon,Wed and 7.5mg all other days) patient has had no changes in medication and no missed doses and no change in diet Advised patient to continue on the same dose(s) and that they would only be contacted regarding dosage and follow up instructions after review with provider, if a change is needed. Written instructions given and patient verbalized understanding. Presently scheduled in 4 weeks (07/05/22) for follow up INR. [facility] 05-10-2022 Note HNO ID: [id number] Author: Tosha Rivas RN Service: ? Author Type: ? Type: Progress Notes Filed: 05/10/2022 4:37 PM Note Text: per pcp she agrees with information [facility] 05-10-2022 Note HNO ID: [id number] Author: Tosha Rivas RN Service: ? Author Type: ? Type: Progress Notes Filed: 05/10/2022 4:37 PM Note Text: patient had inr completed at [facility] patients inr is 2.5 (patients inr range is 2.0-3.0) patient is currently taking 11.25mg Mon,Wed,Fri and 7.5mg all other days patients last dose change was on 11/09/20 due to a low level of 1.7 (dose at that time was 11.25MonWed and 7.5mg all other days) patient has had no changes in medication and no missed doses and no change in diet Advised patient to continue on the same dose(s) and that they would only be contacted regarding dosage and follow up instructions after review with provider, if a change is needed. Written instructions given and patient verbalized understanding. Presently scheduled in 4 weeks (06/07/22) for follow up INR. [facility] 04-05-2022 History of Present illness Narrative pcp agrees with information patient had inr completed at [facility] patients inr is 2.5 (patients inr range is 2.0-3.0) patient is currently taking 11.25mg Mon,Wed,Fri and 7.5mg all other days patients last dose change was on 11/09/20 due to a low level of 1.7 (dose at that time was 11.25mg Mon,Wed and 7.5mg all other days) patient has had no changes in medication and no missed doses and no change in diet Advised patient to continue on the same dose(s) and that they would only be contacted regarding dosage and follow up instructions after review with provider, if a change is needed. Written instructions given and patient verbalized understanding. Presently scheduled in 1 month (05/10/22) for follow up INR. documented in this encounter [facility] 04-04-2022 History of Present illness Narrative Patient chose to see Gastro @ [facility] after her consultation with Noam. Declined to do her colonoscopy with us. Yoly Clarke .1st failed attempt to contact patient. Mailbox is full unable to leave a message. Patient will need a consult prior to having a colonoscopy Yoly Clarke This note was created using [employer]. Subjective Mary Jo Lin is a 62 year old female. Patient presents with: F/U 6 months SUBJECTIVE: Mary Jo Lin is a 62 year old year old lady here today for 6 month follow up appointment for review of medical conditions. Overall doing well. Due for colonoscopy and mammogram. No problems with prior colonoscopy done at [facility] But hard to get a hold of someone to do now so prefers at [facility] site. Noted last time got flu was 38 years ago. PAST MEDICAL HISTORY Diagnosis Date Achilles bursitis or tendinitis 10/11/2013 Allergic rhinitis 07/11/2009 Allergic rhinitis, cause unspecified 07/11/[address] Feliz Obesity 04/12/[address] Charles evaluated; now follows with Dr. Post (September 2017) Other pulmonary embolism and infarction (HCC) 10/07/2014 Plantar fasciitis 04/12/2009 Toxic effect of latex(989.82) 07/11/2009 Current Outpatient Medications Medication Sig mometasone (NASONEX) 50 mcg/actuation nasal spray Use 2 Sprays in each nostril once daily. olopatadine (PATANOL) 0.1 % ophthalmic solution 1 TO 2 DROPS TO EACH EYE TWICE DAILY NEEDED hydroCHLOROthiazide (HYDRODIURIL, ESIDRIX) 12.5 mg tablet Take 1 tablet by mouth once daily. (; [facility]) warfarin (COUMADIN) 7.5 mg tablet Take 11.25 mg Mon, Wed, Fri. Take 7.5 mg all other days losartan (COZAAR) 50 mg tablet Take 75 mg by mouth once daily. Cholecalciferol, Vitamin D3, 1,000 unit cap Take 2 capsules by mouth once daily. (? dose) No current facility-administered medications for this visit. Review of Systems Objective BP 138/86 Pulse 83 Wt (!) 155.1 kg (342 lb) LMP 09/20/2007 SpO2 96% BMI 64.62 kg/m Physical Exam Constitutional: Appearance: Normal appearance. She is obese. HENT: Head: Normocephalic. Eyes: Conjunctiva/sclera: Conjunctivae normal. Cardiovascular: Rate and Rhythm: Normal rate and regular rhythm. Heart sounds: Normal heart sounds. Comments: Controlled swelling in legs with support stockings Pulmonary: Effort: Pulmonary effort is normal. Breath sounds: Normal breath sounds. Skin: General: Skin is warm and dry. Neurological: General: No focal deficit present. Mental Status: She is alert and oriented to person, place, and time. Psychiatric: Mood and Affect: Mood normal. Behavior: Behavior normal. Thought Content: Thought content normal. Judgment: Judgment normal. Component Latest Ref Rng & Units 05/04/2020 01/12/2021 03/02/2022 Protein, Total 6.3 - 8.0 g/dL 7.0 7.4 7.2 Albumin 3.9 - 4.9 g/dL 4.0 4.2 3.9 Calcium 8.5 - 10.2 mg/dL 9.3 10.0 9.2 Bilirubin, Total 0.2 - 1.3 mg/dL 0.5 0.4 0.5 Alkaline Phosphatase 34 - 123 U/L 86 84 91 AST 13 - 35 U/L 19 19 19 Glucose 74 - 99 mg/dL 118 (H) 86 107 (H) BUN 7 - 21 mg/dL 17 14 16 Creatinine 0.58 - 0.96 mg/dL 0.77 0.81 0.76 Sodium 136 - 144 mmol/L 140 140 138 Potassium 3.7 - 5.1 mmol/L 4.1 3.8 4.4 Chloride 97 - 105 mmol/L 101 102 104 CO2 22 - 30 mmol/L 30 22 22 Anion Gap 9 - 18 mmol/L 9 16 12 ALT 7 - 38 U/L 22 15 17 eGFR- >60 >60 eGFR-All Other Races . >60 >60 eGFR >=60 mL/min/1.73m 89 WBC 3.70 - 11.00 k/uL 5.84 6.88 6.71 RBC 3.90 - 5.20 m/uL 4.94 4.93 5.18 Hemoglobin 11.5 - 15.5 g/dL 14.3 14.2 15.2 Hematocrit 36.0 - 46.0 % 44.1 43.3 46.7 (H) MCV 80.0 - 100.0 fL 89.3 87.8 90.2 MCH 26.0 - 34.0 pg 28.9 28.8 29.3 MCHC 30.5 - 36.0 g/dL 32.4 32.8 32.5 RDW-CV 11.5 - 15.0 % 13.3 13.4 13.2 Platelet Count 150 - 400 k/uL 213 219 247 MPV 9.0 - 12.7 fL 10.8 11.0 11.1 Absolute nRBC <0.01 k/uL <0.01 <0.01 <0.01 Cholesterol, Total <200 mg/dL 186 197 Triglyceride <150 mg/dL 82 80 HDL Cholesterol >39 mg/dL 63 61 LDL Cholesterol <100 mg/dL 107 (H) 120 (H) Non HDL Cholesterol <130 mg/dL 123 136 (H) Fasting Time hrs 12 12 VLDL Cholesterol <30 mg/dL 16 16 TC:HDL Ratio <5.10 2.95 3.23 LDL:HDL Ratio <2.54 1.70 1.97 Total Cholesterol, Nonfasting <200 mg/dL 196 Triglycerides, Nonfasting <150 mg/dL 71 HDL Cholesterol, Nonfasting >39 mg/dL 61 LDL Cholesterol, Nonfasting <100 mg/dL 121 (H) Non HDL Cholesterol, Nonfasting <130 mg/dL 135 (H) VLDL Cholesterol, Nonfasting <30 mg/dL 14 Total Chol/HDL Ratio, Nonfasting <5.10 mg/dL 3.21 LDL/HDL Ratio, Nonfasting <2.54 mg/dL 1.98 Vitamin D 25 Hydroxy 31.0 - 80.0 ng/mL 57.9 49.3 70.1 The 10-year ASCVD risk score (Tri HENDERSON, et al., 2019) is: 5.9% Values used to calculate the score: Age: 62 years Sex: Female Is Non- : No Diabetic: No Tobacco smoker: No Systolic Blood Pressure: 138 mmHg Is BP treated: Yes HDL Cholesterol: 61 mg/dL Total Cholesterol: 197 mg/dL Assessment and Plan Encounter Diagnosis ICD-10-CM 1. Essential hypertension I10 2. Vitamin D deficiency E55.9 3. Edema of both legs R60.0 4. Morbid obesity with BMI of 60.0-69.9, adult (HCC) E66.01 Z68.44 5. Anticoagulated on Coumadin Z79.01 6. Special screening for malignant neoplasms, colon Z12.11 COLONOSCOPY SCREENING 7. Need for vaccination Z23 INFLUENZA VACCINE QUADRIVALENT 6 MO - 64 YRS IM 8. Screening for colon cancer Z12.11 Above issues addressed with patient. Patient involved in shared decision making for management of medical issues. History and medications reviewed. Epic updated as needed Refills and/or prescriptions taken care of and meds adjusted as indicated after reviewed history, exam and labs. Health Maintenance reviewed. Updated record and/or ordered tests as recorded. Continue present meds. Further evaluation and treatment as indicated. Encouraged on efforts at healthy diet and regular exercise and adequate sleep. Needs to keep working on diet and exercise with lifestyle changes for effective weight loss as well as prevention of DM, and control of BP and lipids. Marleen Cameron MD [facility] OPEN ACCESS QUESTIONNAIRE 1. Are you currently having any new or unusual stomach/gastrointestinal issues at this time such as constipation, diarrhea, abdominal pain, rectal bleeding etc?No 2. Do you have any difficulty swallowing? No 3. Do you have any implanted devices such as a defibrillator, pacemaker, cardiac stents or deep brain stimulator? No 4. Do you take any Blood thinners such as Coumadin, Plavix, Xarelto, Eliquis, Brilinta or any other blood thinner? YES:Coumadin (Warfarin) 5. Do you have any new or past cardiac (heart) or pulmonary (lung) issues? Yes / History pulmonary embolism 6. Do you currently use any oxygen? No 7. Have you been hospitalized in the past 6 weeks? No 8. Have you had difficulty with anesthesia previously re: Difficult intubation? No Other difficulty or allergic reaction to anesthesia other than post op N/V? No 9. Are you on dialysis? No 10. Do you have any bleeding disorders such as hemophilia or Factor 5? No 11. Are you an Insulin Dependent Diabetic? No IF ANY OF THE TOP ELEVEN QUESTIONS ARE ANSWERED YES PLEASE SCHEDULE THE PATIENT FOR A CONSULT. advised 12. Is the patient's BMI 40 or greater? Yes / 60:Body mass index is 64.62 kg/m .. 13. Do you take any narcotics or anti-Anxiety medications? No 14. Do you use any illegal or recreational drugs including marijuana? No 15. Any alcohol use: No. 16. Have you been diagnosed with chronic liver disease such as hepatitis or cirrhosis? No 17. Do you have a seizure disorder? No 18. Do you have ulcerative colitis or Crohn's disease? No 19. Are you or could you be ? No 20. Any other important health information we should be made aware of prior to your colonoscopy? No To be completed by LIP: Did patient have MAC anesthesia with a previous endoscopy procedure? No Patient appropriate for Open Access Colonoscopy: Note that had no problems with prior colonoscopy and was able to have open access colonoscopy despite having Yes to anticoagulation on the questionnaire and BMI >40. Seeing if can still go through open access. Checklist: Prior to closing the encounter: Complete questionnaire: Yes Confirm Prep order has been Ordered/Pended: Yes. Patient's procedure could be delayed if not given the script for the prep. Please ensure the prep is escripted to pharmacy or printed. Instructions for the prep will print upon filing or pending this smartset. Please send all open access questionnaires to [facility] Pool #[id number] documented in this encounter [facility] 03-29-2022 History of Present illness Narrative Mary Jo Lin 1960 REFERRING PHYSICIAN: Marleen Cameron MD CHIEF COMPLAINT: Consult (colonoscopy) HPI: The patient is a 62 year old female referred for endoscopy. Mary Jo states that she had a colonoscopy done by Dr. Goodwin at [facility] 02/23/2019 - fragments of tubulovillous adenoma with multifocal HGD of rectum - 2 x 2 cm x 1.3 cm She denies blood in her stools. She denies chronic abdominal pain. She denies changes in her bowel habits. She states that she doesn't want to leave [facility] for this procedure. Her BMI is 62 which precludes this being done at the [facility]. PAST MEDICAL HISTORY Diagnosis Date Achilles bursitis or tendinitis 10/11/2013 Allergic rhinitis 07/11/2009 Allergic rhinitis, cause unspecified 07/11/[address] Feliz Obesity 04/12/[address] Charles evaluated; now follows with Dr. Post (September 2017) Other pulmonary embolism and infarction (HCC) 10/07/2014 Plantar fasciitis 04/12/2009 Toxic effect of latex(989.82) 07/11/2009 PAST SURGICAL HISTORY Procedure Laterality Date LIG/TRNSXJ FLP TUBE ABDL/VAG APPR UNI/BI Tubal ligation PAST SURGICAL HISTORY OF 06/11 Lapband Current Outpatient Medications Medication Sig mometasone (NASONEX) 50 mcg/actuation nasal spray Use 2 Sprays in each nostril once daily. olopatadine (PATANOL) 0.1 % ophthalmic solution 1 TO 2 DROPS TO EACH EYE TWICE DAILY NEEDED hydroCHLOROthiazide (HYDRODIURIL, ESIDRIX) 12.5 mg tablet Take 1 tablet by mouth once daily. (; [facility]) warfarin (COUMADIN) 7.5 mg tablet Take 11.25 mg Mon, Wed, Fri. Take 7.5 mg all other days losartan (COZAAR) 50 mg tablet Take 75 mg by mouth once daily. Cholecalciferol, Vitamin D3, 1,000 unit cap Take 2 capsules by mouth once daily. (? dose) ALLERGIES: Aleve [Naproxen Sodium], Latex, and Seasonal [Other] PERSONAL HISTORY: Social History Tobacco Use Smoking status: Never Smokeless tobacco: Never Vaping Use Vaping Use: Never used Substance Use Topics Alcohol use: No Comment: rarely Drug use: No FAMILY HISTORY Problem Relation Age of Onset other (Serosis [Other]) Mother Stroke Maternal Grandmother Alcohol/Drug Father The review of systems data was entered by the nurse and reviewed by il Nursing Notes: Britta Kohler LPN 03/27/2022 2:49 PM Signed REVIEW OF SYSTEMS: General: The patient denies fatigue, denies weight loss, denies weight gain, denies feeling hot, and notes feelings of cold. Eyes: The patient denies glaucoma, denies eye injury/surgery, wears glasses or contacts. Ear/Nose/Throat: The patient notes allergies, denies hayfever, denies ear infections, and denies bloody noses. Cardiovascular: The patient denies chest pain, denies heart disease, notes high blood pressure,denies cardiac stent, denies prior heart attack, denies irregular heart beat, denies high cholesterol, denies poor circulation, denies heart failure, other cardiac issues, denies claudication, denies cold feet, denies peripheral arterial stent. Respiratory: The patient denies tuberculosis, denies pneumonia, denies frequent cough, denies pulmonary embolism, denies shortness of breath, and denies coughing up blood. Gastrointestinal: The patient denies difficulty swallowing, denies acid reflux, denies ulcers, denies vomiting, denies jaundice/hepatitis, denies gallbladder problems, denies black or tarry stools, denies hemorrhoids, denies bleeding from rectum, denies diverticulitis, denies constipation, denies diarrhea, denies loss of stool control, and denies hernias. Kidney/Bladder: The patient denies kidney stones, denies urine infections, and denies bloody urine. Skin: The patient denies a history of skin cancer, denies bleeding/changing moles, and denies a history of skin rash. Neurologic: The patient denies a history of epilepsy/convulsions, denies headaches, denies head/spinal injuries, and denies stroke/TIA. Psychiatric: The patient denies psychiatric medications, denies depression, and denies voices, denies substance abuse. Endocrine: The patient denies thyroid disorders, denies diabetes, and denies hormonal problems. Hematologic: The patient denies a history of bruising, denies bleeding, and denies anemia, denies blood clots. Infections: The patient denies a history of measles and mumps, denies rheumatic fever, and denies sexually transmitted diseases. Musculoskeletal: The patient denies back pain/injury, denies back problems, denies sciatica, notes knee/foot trouble, notes arthritis, or denies gout. When was patient's last Mammogram screening? 2021 Last Colonoscopy: 2018 Britta Kohler LPN PHYSICAL EXAMINATION: General: The patient is 62 year old female, well nourished, well hydrated in no acute distress. The patient is oriented to time, place, and person. VITALS: Blood pressure 164/90, pulse 117, temperature 36.7 C (98 F), height 157.5 cm (5' 2 ), weight (!) 155.6 kg (343 lb), last menstrual period 09/20/2007, SpO2 98 %. Body mass index is 62.74 kg/m . Head: Normal cephalic, atraumatic Eyes: pupils are equally round, sclera are clear/anicteric Neck is supple with no tracheal deviation Respiratory: Normal respiratory excursion and pattern. Abdominal exam: benign Extremities: no clubbing, cyanosis or edema. Neuro: non focal, walking with aid of a walker Psych: normal mood Assessment IMPRESSION: history of colon polyp PLAN: I have discussed above with patient. I have offered colonoscopy to be done at [facility] or [facility]. Patient still refuses to leave [facility] for this procedure. She states that she will seek a tooth cutter spur for this procedure at [facility]. Patient acknowledges above. Diagnoses: (Z86.010) History of colonic polyps (E66.01) Morbid obesity (HCC) I have confirmed and edited as necessary, the PFSH and ROS obtained by others. Consultation requested by Dr. Marleen Cameron for an opinion regarding patient's history of colon polyps. My final recommendations will be communicated back to the requesting physician by way of shared Medical record or letter to requesting physician via US mail. Return to Clinic: The patient is instructed to follow-up with me as per needed. Medical Decision Making: Problems: Low: Stable chronic illness Medical Decision Making Level: 2 - Straightforward Stephanie Santacruz MD documented in this encounter [facility] 03-27-2022 Nurse Note REVIEW OF SYSTEMS: General: The patient denies fatigue, denies weight loss, denies weight gain, denies feeling hot, and notes feelings of cold. Eyes: The patient denies glaucoma, denies eye injury/surgery, wears glasses or contacts. Ear/Nose/Throat: The patient notes allergies, denies hayfever, denies ear infections, and denies bloody noses. Cardiovascular: The patient denies chest pain, denies heart disease, notes high blood pressure,denies cardiac stent, denies prior heart attack, denies irregular heart beat, denies high cholesterol, denies poor circulation, denies heart failure, other cardiac issues, denies claudication, denies cold feet, denies peripheral arterial stent. Respiratory: The patient denies tuberculosis, denies pneumonia, denies frequent cough, denies pulmonary embolism, denies shortness of breath, and denies coughing up blood. Gastrointestinal: The patient denies difficulty swallowing, denies acid reflux, denies ulcers, denies vomiting, denies jaundice/hepatitis, denies gallbladder problems, denies black or tarry stools, denies hemorrhoids, denies bleeding from rectum, denies diverticulitis, denies constipation, denies diarrhea, denies loss of stool control, and denies hernias. Kidney/Bladder: The patient denies kidney stones, denies urine infections, and denies bloody urine. Skin: The patient denies a history of skin cancer, denies bleeding/changing moles, and denies a history of skin rash. Neurologic: The patient denies a history of epilepsy/convulsions, denies headaches, denies head/spinal injuries, and denies stroke/TIA. Psychiatric: The patient denies psychiatric medications, denies depression, and denies voices, denies substance abuse. Endocrine: The patient denies thyroid disorders, denies diabetes, and denies hormonal problems. Hematologic: The patient denies a history of bruising, denies bleeding, and denies anemia, denies blood clots. Infections: The patient denies a history of measles and mumps, denies rheumatic fever, and denies sexually transmitted diseases. Musculoskeletal: The patient denies back pain/injury, denies back problems, denies sciatica, notes knee/foot trouble, notes arthritis, or denies gout. When was patient's last Mammogram screening? 2021 Last Colonoscopy: 2018 Britta Kohler LPN documented in this encounter [facility] 03-19-2022 Miscellaneous Notes Attempted to reach patient with no answer and unable to leave a message. Letter sent of results to home address. Please let patient know that mammogram showed no signs of any issues, repeat mammogram in 1 year per screening guidelines is recommended. Thanks! Katalina Aponte APRN.[email or web address] documented in this encounter [facility] 03-18-2022 Miscellaneous Notes March 18, 2022 PID: [id number] Mary Jo Lin [address] [place] [address] Dear Ms. Lin, We are pleased to inform you that the results of your recent breast imaging exam on 03/15/2022 are normal. Early detection of cancer is very important. We also understand recommendations regarding breast cancer screening are controversial. Please discuss with your primary care provider which strategy is best for you and whether a mammogram is right for you. Your imaging studies and report will be kept on file at [facility] as part of your permanent medical record and are available for your continuing care. Thank you for allowing us to help in meeting your health care needs. Sincerely, Dr. Ordonez Interpreting Radiologist [facility] (Normal over 40) documented in this encounter [facility] 03-15-2022 History of Present illness Narrative Radiology Service Progress Note PATIENT NAME: Mary Jo Lin DATE OF SERVICE: March 15, 2022 TIME: 1:19 PM PATIENT IDENTITY VERIFICATION COMPLETED USING TWO (2) IDENTIFIERS: Name and Date of confirmed by patient verbally. FALL SCREENING: Has the patient had 2 falls in the last year or 1 fall with injury or currently using an Ambulatory Assistive Device (Walker, Cane, Wheelchair, Crutches, etc.)? No PATIENT GENDER DATA: Female. status: : No status: NO. PATIENT RELEVANT IMPLANT DATA REVIEWED: Not Applicable RADIOLOGY DEPARTMENT: Mammography PERIPHERAL IV DATA: Not applicable SIGNED BY: RT Zelalem(R) March 15, 2022 1:19 PM documented in this encounter [facility] 03-12-2022 Instructions Marleen Cameron MD - 03/12/2022 4:27 PM EST Images from the original note were not included. Bowel Preparation Instructions for: Miralax-Gatorade Preparations IF YOU DO NOT FOLLOW THESE DIRECTIONS, YOUR COLONOSCOPY WILL BE CANCELLED. Gutierrez Instructions: Your bowel must be empty so that your doctor can clearly view your colon. Follow all of the instructions in this handout EXACTLY as they are written. Do NOT eat any solid food the ENTIRE day before your colonoscopy. Buy your bowel preparation at least 5 days before your colonoscopy. Four (4) Dulcolax laxative tablets containing 5mg of bisacodyl each (NOT Dulcolax stool softener) One (1) 8.3oz. bottle Miralax (238 grams) or generic equivalent 2 x 32oz. Bottles of Gatorade (NOT RED) Diabetic Patients: Use G2 (Gatorade 2) TRANSPORTATION on the Day of Your Exam A responsible adult MUST be present with you at Check In prior to your colonoscopy and REMAIN in the endoscopy area until you are discharged. You are NOT ALLOWED to drive, take a taxi or bus, or leave the Endoscopy Center ALONE. If you do not have a responsible concrete mixing truck driver (family member or friend) with you to take you home, your exam cannot be done with sedation and will be cancelled. Please bring a list of all of your current medications, including any Luco-avk-Pdpolfc medications with you. Medications If you take insulin, diabetic medications or blood thinners such as Coumadin (warfarin), Plavix (clopidogrel), Ticlid (ticlopidine hydrochloride), Agrylin (anagrelide), Xarelto (Rivaroxaban), Pradaxa (Dabigatran), Eliquis (Apixaban), and Effient (Prasugrel). You MUST call the doctors who orders those medicines for instructions on altering the dosage before your colonoscopy. All other medications should be taken the day of the exam with a sip of water including ASPIRIN. Five (5) Days Before Your Colonoscopy Do NOT take medicines that stop diarrhea - such as Imodium, Kaopectate, or Pepto Bismol. Do NOT take fiber supplements - such as Metamucil, Citrucel, or Perdiem. Do NOT take products that contain iron - such as multi-vitamins (the label lists what is in the products). Three (3) Days Before Your Colonoscopy Do NOT eat high-fiber foods - such as popcorn, beans, seeds (flax, sunflower, quinoa), multigrain bread, nuts, salad/vegetables, or fresh and dried fruit. 1 Bowel Preparation Instructions for: Miralax-Gatorade Preparations One (1) Day Before Your Colonoscopy Only drink clear liquids the ENTIRE DAY before your colonoscopy. Do NOT eat any solid foods. Drink at least 8 ounces of clear liquids every hour after waking up. The clear liquids you can drink include: Clear Liquid (NO RED LIQUIDS) DO NOT DRINK Gatorade, Pedialyte or Powerade Clear broth or bouillon Coffee or tea (no milk or non-dairy creamer) Carbonated and non-carbonated soft drinks Tyrone-Aid or other fruit flavored drinks Strained fruit juices (no pulp) Jell-O, popsicles, hard candy Water Alcohol Milk or non-dairy creamers Noodles or vegetables in soup Juice with pulp Liquid you cannot see through Do not use tobacco/vaping products Mix 1/2 of Miralax bottle (119 grams) in each 32 ounces of Gatorade bottle until dissolved. Keep cool in the refrigerator. DO NOT ADD ICE. The bowel preparation solution will be consumed in two parts. Part 1 5:00 PM - Evening before your colonoscopy Take 4 Dulcolax tablets. 6 PM - Evening before your colonoscopy Drink 32 oz. of the mixed solution. Drink an 8 oz. glass of bowel preparation every 15 minutes for a total of 4 glasses. Fifteen (15) minutes later, drink an 8 oz. glass of of clear liquids every 15 minutes for a total of 2 glasses. You may continue to drink clear liquids till midnight. Part 2 On the day of your colonoscopy you may drink clear liquids up to (three) 3 hours prior to procedure. 4 1/2 hours before your colonoscopy Take another 32 oz. bottle of mixed solution. Drink an 8 oz. glass of bowel prep every 15 minutes for a total of 4 glasses. Fifteen (15) minutes later, drink an 8 oz. glass of clear liquids every 15 minutes for a total of 2 glasses. You may continue to drink clear liquids up to (three) 3 hours before your exam. 2 04/2019 documented in this encounter [facility] 03-01-2022 History of Present illness Narrative Continue coumadin unchanged and check INR one month patient had inr completed at [facility] patients inr is 2.7 (patients inr range is 2.0-3.0) patient is currently taking 11.25mg Mon,Wed,Fri and 7.5mg all other days patients last dose change was on 11/09/20 due to a low level of 1.7 (dose at that time was 11.25mg Mon,Wed and 7.5mg all other days) patient has had no changes in medication and no missed doses and no change in diet Advised patient to continue on the same dose(s) and that they would only be contacted regarding dosage and follow up instructions after review with provider, if a change is needed. Written instructions given and patient verbalized understanding. Presently scheduled in 1 month (04/05/22) for follow up INR. documented in this encounter [facility] 02-01-2022 History of Present illness Narrative Continue with current dosing Coumadin and check INR in 4 weeks patient had inr completed at [facility] patients inr is 2.9 (patients inr range is 2.0-3.0) patient is currently taking 11.25mg Mon,Wed,Fri and 7.5mg all other days patients last dose change was on 11/09/20 due to a low level of 1.7 (dose at that time was 11.25mg Mon,Wed and 7.5mg all other days) patient has had no changes in medication and no missed doses and no change in diet Advised patient to continue on the same dose(s) and that they would only be contacted regarding dosage and follow up instructions after review with provider, if a change is needed. Written instructions given and patient verbalized understanding. Presently scheduled in 4 weeks (03/01/22) for follow up INR. documented in this encounter [facility] 01-04-2022 History of Present illness Narrative pcp agrees with information patient had inr completed at [facility] patients inr is 2.9 (patients inr range is 2.0-3.0) patient is currently taking 11.25mg Mon,Wed,Fri and 7.5mg all other days patients last dose change was on 11/09/20 due to a low level of 1.7 (dose at that time was 11.25mg Mon,Wed and 7.5mg all other days) patient has had no changes in medication and no missed doses and no change in diet Advised patient to continue on the same dose(s) and that they would only be contacted regarding dosage and follow up instructions after review with provider, if a change is needed. Written instructions given and patient verbalized understanding. Presently scheduled in 4 weeks (02/01/22) for follow up INR. documented in this encounter [facility] 12-14-2021 History of Present illness Narrative per pcp she agrees with information patient had inr completed at [facility] patients inr is 2.5 (patients inr range is 2.0-3.0) patient is currently taking 11.25mg Mon,Wed,Fri and 7.5mg all other days patients last dose change was on 11/09/20 due to a low level of 1.7 (dose at that time was 11.25mg Mon,Wed and 7.5mg all other days) patient has had no changes in medication and no missed doses and no change in diet Advised patient to continue on the same dose(s) and that they would only be contacted regarding dosage and follow up instructions after review with provider, if a change is needed. Written instructions given and patient verbalized understanding. Presently scheduled in 3 weeks (01/04/22) for follow up INR. documented in this encounter [facility] 12-04-2021 Miscellaneous Notes Last OV: 07/17/21 Next OV: 03/12/22 documented in this encounter [facility] 11-09-2021 History of Present illness Narrative Continue with Coumadin dose unchanged and check INR in 1 month patient had inr completed at [facility] patients inr is 2.9 (patients inr range is 2.0-3.0) patient is currently taking 11.25mg Mon,Wed,Fri and 7.5mg all other days patients last dose change was on 11/09/20 due to a low level of 1.7 (dose at that time was 11.25mg Mon,Wed and 7.5mg all other days) patient has had no changes in medication and no missed doses and no change in diet Advised patient to continue on the same dose(s) and that they would only be contacted regarding dosage and follow up instructions after review with provider, if a change is needed. Written instructions given and patient verbalized understanding. Presently scheduled in 1 month (12/14/21) for follow up INR. documented in this encounter [facility] 10-12-2021 History of Present illness Narrative Continue with Coumadin dose unchanged and check INR in 4 weeks patient had inr completed at [facility] patients inr is 2.0 (patients inr range is 2.0-3.0) patient is currently taking 11.25mg Mon,Wed,Fri and 7.5mg all other days patients last dose change was on 11/09/20 due to a low level of 1.7 (dose at that time was 11.25mg Mon,Wed and 7.5mg all other days) patient has had no changes in medication and no missed doses and no change in diet Advised patient to continue on the same dose(s) and that they would only be contacted regarding dosage and follow up instructions after review with provider, if a change is needed. Written instructions given and patient verbalized understanding. Presently scheduled in 4 weeks (11/09/21) for follow up INR. documented in this encounter [facility] 10-12-2021 Miscellaneous Notes patients orders for coumadin clinic inr's has at this time. new order has been pended for approval if possible so that patient can continue to get inr's completed thru the coumadin clinic. coumadin clinic nurse only needs called if order can not be approved. documented in this encounter [facility] 09-07-2021 History of Present illness Narrative per pcp she agrees with information patient had inr completed at [facility] patients inr is 2.3 (patients inr range is 2.0-3.0) patient is currently taking 11.25mg Mon,Wed,Fri and 7.5mg all other days patients last dose change was on 11/09/20 due to a low level of 1.7 (dose at that time was 11.25 Mon,Wed and 7.5mg all other days) patient has had no changes in medication and no missed doses and no change in diet Advised patient to continue on the same dose(s) and that they would only be contacted regarding dosage and follow up instructions after review with provider, if a change is needed. Written instructions given and patient verbalized understanding. Presently scheduled in 1 month (10/12/21) for follow up INR. documented in this encounter [facility] 08-10-2021 History of Present illness Narrative per pcp she agrees with information patient had inr completed at [facility] patients inr is 2.7 (patients inr range is 2.0-3.0) patient is currently taking 11.25mg Mon,Wed,Fri and 7.5mg all other days patients last dose change was on 11/09/20 due to a low level of 1.7 (dose at that time was 11.25mg Mon,Wed and 7.5mg all other days) patient has had no changes in medication and no missed doses and no change in diet Advised patient to continue on the same dose(s) and that they would only be contacted regarding dosage and follow up instructions after review with provider, if a change is needed. Written instructions given and patient verbalized understanding. Presently scheduled in 4 weeks (09/07/21) for follow up INR. documented in this encounter [facility] 07-17-2021 History of Present illness Narrative This note was created using NoteWriter. Subjective Mary Jo I [place] is a 61 year old female. Patient presents with: Follow Up SUBJECTIVE: Mary Jo Lin is a 61 year old year old lady here today for follow up appointment for review of medical conditions. Stable No heart issues. Follows with Dr. Howell and Gio. Some cough from postnasal drip. Not using nasal steroid or antihistamine. Not needing. No severe symptoms and no sinusitis issues. Did get Booster for [employer] at [employer]. PAST MEDICAL HISTORY Diagnosis Date Achilles bursitis or tendinitis 10/11/2013 Allergic rhinitis 07/11/2009 Allergic rhinitis, cause unspecified 07/11/[address] Feliz Obesity 04/12/[address] Charles evaluated; now follows with Dr. 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 Take 7.5 mg all other days losartan (COZAAR) 50 mg tablet Cholecalciferol, Vitamin D3, 1,000 unit cap Take 2 capsules by mouth once daily. (? dose) mometasone (NASONEX) 50 mcg/actuation nasal spray Use 2 Sprays in each nostril once daily. olopatadine (PATANOL) 0.1 % ophthalmic solution 1 TO 2 DROPS TO EACH EYE TWICE DAILY NEEDED hydrochlorothiazide (HYDRODIURIL, ESIDRIX) 12.5 mg tablet Take 1 tablet by mouth once daily. (Dr. Feliz) No current facility-administered medications for this visit. Review of Systems Objective BP 128/72 Pulse 78 Wt (!) 155.1 kg (342 lb) LMP 09/20/2007 BMI 64.62 kg/m Physical Exam Constitutional: Appearance: Normal appearance. She is obese. HENT: Head: Normocephalic. Eyes: Conjunctiva/sclera: Conjunctivae normal. Cardiovascular: Rate and Rhythm: Normal rate and regular rhythm. Heart sounds: Normal heart sounds. Pulmonary: Effort: Pulmonary effort is normal. Breath sounds: Normal breath sounds. Musculoskeletal: Right lower leg: Edema present. Left lower leg: Edema present. Skin: General: Skin is warm and dry. Neurological: General: No focal deficit present. Mental Status: She is alert and oriented to person, place, and time. Psychiatric: Mood and Affect: Mood normal. Behavior: Behavior normal. Thought Content: Thought content normal. Judgment: Judgment normal. Assessment and Plan Encounter Diagnosis ICD-10-CM 1. Vitamin D deficiency E55.9 VITAMIN D 25 HYDROXY 2. Edema of both legs R60.0 hydroCHLOROthiazide (HYDRODIURIL, ESIDRIX) 12.5 mg tablet 3. Morbid obesity with BMI of 60.0-69.9, adult ([facility]) E66.01 Z68.44 4. Essential hypertension I10 COMP METABOLIC PANEL CBC LIPID PANEL BASIC 5. Anticoagulated on Coumadin Z79. COMP METABOLIC PANEL CBC 6. Allergic rhinitis, unspecified seasonality, unspecified trigger J30.9 7. Encounter for long-term current use of medication Z79.899 COMP METABOLIC PANEL CBC ASSESSMENT/PLAN: 1. Vitamin D deficiency - ICD9: 268.9, ICD10: E55.9 (primary diagnosis) Adjust replacement as needed - VITAMIN D 25 HYDROXY 2. Edema of both legs - ICD9: 782.3, ICD10: R60.0 Further evaluation and treatment as indicated. - HYDROCHLOROTHIAZIDE 12.5 MG TABLET 3. Morbid obesity with BMI of 60.0-69.9, adult ([facility]) - ICD9: 278.01, V85.44, ICD10: E66.01, Z68.44 Weight up and down, Going down since last check - Behavioral intervention Needs to keep working on diet and exercise with lifestyle changes for effective weight loss as well as prevention of DM, and control of BP and lipids. 4. Essential hypertension - ICD9: 401.9, ICD10: I10 - good control - Continue current medication(s) - Recommended regular aerobic exercise. - Recommend home blood pressure monitoring, to bring results in on next visit - Goal of BP <130/80 - COMP METABOLIC PANEL - CBC - LIPID PANEL BASIC 5. Anticoagulated on Coumadin - ICD9: V58.61, ICD10: Z79.01 - COMP METABOLIC PANEL - CBC 6. Allergic rhinitis, unspecified seasonality, unspecified trigger - ICD9: 477.9, ICD10: J30.9 Treatment as discussed, 7. Encounter for long-term current use of medication - ICD9: V58.69, ICD10: Z79.899 - COMP METABOLIC PANEL - CBC Marleen Cameron MD documented in this encounter [facility] documented as of this encounter (statuses as of 08/10/2021) [facility] History of Past illness Narrative* Problem Noted Date Resolved Date Achilles bursitis or tendinitis 10/11/2013 09/04/2016 Plantar fasciitis 04/12/2009 09/04/2016 Left foot pain 04/12/2009 09/04/2016 Pre-operative cardiovascular examination 006 09/04/2016 documented as of this encounter (statuses as of 09/07/2021) [facility] History of Past illness Narrative* Problem Noted Date Resolved Date Achilles bursitis or tendinitis 10/11/2013 09/04/2016 Plantar fasciitis 04/12/2009 09/04/2016 Left foot pain 04/12/2009 09/04/2016 Pre-operative cardiovascular examination 006 09/04/2016 documented as of this encounter (statuses as of 10/09/2021) [facility] of Past illness Narrative* Problem Noted Date Resolved Date Achilles bursitis or tendinitis 10/11/2013 09/04/2016 Plantar fasciitis 04/12/2009 09/04/2016 Left foot pain 04/12/2009 09/04/2016 Pre-operative cardiovascular examination 006 09/04/2016 documented as of this encounter (statuses as of 10/12/2021) [facility] of Past illness Narrative* Problem Noted Date Resolved Date Achilles bursitis or tendinitis 10/11/2013 09/04/2016 Plantar fasciitis 04/12/2009 09/04/2016 Left foot pain 04/12/2009 09/04/2016 Pre-operative cardiovascular examination 006 09/04/2016 documented as of this encounter (statuses as of 10/23/2021) [facility] of [facility] illness Narrative* Problem Noted Date Resolved Date Achilles bursitis or tendinitis 10/11/2013 09/04/2016 Plantar fasciitis 04/12/2009 09/04/2016 Left foot pain 04/12/2009 09/04/2016 Pre-operative cardiovascular examination 006 09/04/2016 documented as of this encounter (statuses as of 11/09/2021) [facility] of [facility] Narrative* Problem Noted Date Resolved Date Achilles bursitis or tendinitis 10/11/2013 09/04/2016 Plantar fasciitis 04/12/2009 09/04/2016 Left foot pain 04/12/2009 09/04/2016 Pre-operative cardiovascular examination 006 09/04/2016 documented as of this encounter (statuses as of 12/05/2021) [facility] Narrative* Problem Noted Date Resolved Date Achilles bursitis or tendinitis 10/11/2013 09/04/2016 Plantar fasciitis 04/12/2009 09/04/2016 Left foot pain 04/12/2009 09/04/2016 Pre-operative cardiovascular examination 006 09/04/2016 documented as of this encounter (statuses as of 12/14/2021) [facility] Narrative* Problem Noted Date Resolved Date Achilles bursitis or tendinitis 10/11/2013 09/04/2016 Plantar fasciitis 04/12/2009 09/04/2016 Left foot pain 04/12/2009 09/04/2016 Pre-operative cardiovascular examination 006 09/04/2016 documented as of this encounter (statuses as of 01/04/2022) [facility] Narrative* Problem Noted Date Resolved Date Achilles bursitis or tendinitis 10/11/2013 09/04/2016 Plantar fasciitis 04/12/2009 09/04/2016 Left foot pain 04/12/2009 09/04/2016 Pre-operative cardiovascular examination 006 09/04/2016 documented as of this encounter (statuses as of 02/01/2022) [facility] Narrative* Problem Noted Date Resolved Date Achilles bursitis or tendinitis 10/11/2013 09/04/2016 Plantar fasciitis 04/12/2009 09/04/2016 Left foot pain 04/12/2009 09/04/2016 Pre-operative cardiovascular examination 006 09/04/2016 documented as of this encounter (statuses as of 03/01/2022) [facility] Narrative* Problem Noted Date Resolved Date Achilles bursitis or tendinitis 10/11/2013 09/04/2016 Plantar fasciitis 04/12/2009 09/04/2016 Left foot pain 04/12/2009 09/04/2016 Pre-operative cardiovascular examination 006 09/04/2016 documented as of this encounter (statuses as of 03/04/2022) [facility] Narrative* Problem Noted Date Resolved Date Achilles bursitis or tendinitis 10/11/2013 09/04/2016 Plantar fasciitis 04/12/2009 09/04/2016 Left foot pain 04/12/2009 09/04/2016 Pre-operative cardiovascular examination 006 09/04/2016 documented as of this encounter (statuses as of 03/19/2022) [facility] Narrative* Problem Noted Date Resolved Date Achilles bursitis or tendinitis 10/11/2013 09/04/2016 Plantar fasciitis 04/12/2009 09/04/2016 Left foot pain 04/12/2009 09/04/2016 Pre-operative cardiovascular examination 006 09/04/2016 documented as of this encounter (statuses as of 03/20/2022) [facility] Narrative* Problem Noted Date Resolved Date Achilles bursitis or tendinitis 10/11/2013 09/04/2016 Plantar fasciitis 04/12/2009 09/04/2016 Left foot pain 04/12/2009 09/04/2016 Pre-operative cardiovascular examination 006 09/04/2016 documented as of this encounter (statuses as of 03/30/2022) [facility] Narrative* Problem Noted Date Resolved Date Achilles bursitis or tendinitis 10/11/2013 09/04/2016 Plantar fasciitis 04/12/2009 09/04/2016 Left foot pain 04/12/2009 09/04/2016 Pre-operative cardiovascular examination 006 09/04/2016 documented as of this encounter (statuses as of 04/05/2022) [facility] Narrative* Problem Noted Date Resolved Date Achilles bursitis or tendinitis 10/11/2013 09/04/2016 Plantar fasciitis 04/12/2009 09/04/2016 Left foot pain 04/12/2009 09/04/2016 Pre-operative cardiovascular examination 006 09/04/2016 documented as of this encounter (statuses as of 04/05/2022) [facility] History of Past illness Narrative* Problem Noted Date Resolved Date Achilles bursitis or tendinitis 10/11/2013 09/04/2016 Plantar fasciitis 04/12/2009 09/04/2016 Left foot pain 04/12/2009 09/04/2016 Pre-operative cardiovascular examination 006 09/04/2016 documented as of this encounter (statuses as of 06/10/2022) [facility] History of Past illness Narrative* Problem Noted Date Resolved Date Achilles bursitis or tendinitis 10/11/2013 09/04/2016 Plantar fasciitis 04/12/2009 09/04/2016 Left foot pain 04/12/2009 09/04/2016 Pre-operative cardiovascular examination 006 09/04/2016 documented as of this encounter (statuses as of 08/02/2022) [facility] History of Past illness Narrative* Problem Noted Date Resolved Date Achilles bursitis or tendinitis 10/11/2013 09/04/2016 Plantar fasciitis 04/12/2009 09/04/2016 Left foot pain 04/12/2009 09/04/2016 Pre-operative cardiovascular examination 006 09/04/2016 documented as of this encounter (statuses as of 08/30/2022) [facility] History of Past illness Narrative* Problem Noted Date Resolved Date Achilles bursitis or tendinitis 10/11/2013 09/04/2016 Plantar fasciitis 04/12/2009 09/04/2016 Left foot pain 04/12/2009 09/04/2016 Pre-operative cardiovascular examination 006 09/04/2016 documented as of this encounter (statuses as of 11/02/2022) [facility] of Past illness Narrative* Problem Noted Date Resolved Date Achilles bursitis or tendinitis 10/11/2013 09/04/2016 Plantar fasciitis 04/12/2009 09/04/2016 Left foot pain 04/12/2009 09/04/2016 Pre-operative cardiovascular examination 006 09/04/2016 documented as of this encounter (statuses as of 11/05/2022) [facility] of Past illness Narrative* Problem Noted Date Resolved Date Achilles bursitis or tendinitis 10/11/2013 09/04/2016 Plantar fasciitis 04/12/2009 09/04/2016 Left foot pain 04/12/2009 09/04/2016 Pre-operative cardiovascular examination 006 09/04/2016 documented as of this encounter (statuses as of 11/07/2022) [facility] of Past illness Narrative* Problem Noted Date Diagnosed Date Resolved Date Achilles bursitis or tendinitis 10/11/2013 09/04/2016 Plantar fasciitis 04/12/2009 09/04/2016 Left foot pain 04/12/2009 09/04/2016 Pre-operative cardiovascular examination 04/16/2006 09/04/2016 documented as of this encounter (statuses as of 12/21/2022) [facility] of Past illness Narrative* Problem Noted Date Diagnosed Date Resolved Date Achilles bursitis or tendinitis 10/11/2013 09/04/2016 Plantar fasciitis 04/12/2009 09/04/2016 Left foot pain 04/12/2009 09/04/2016 Pre-operative cardiovascular examination 04/16/2006 09/04/2016 documented as of this encounter (statuses as of 01/17/2023) [facility] of [facility] illness Narrative* Problem Noted Date Diagnosed Date Resolved Date Achilles bursitis or tendinitis 10/11/2013 09/04/2016 Plantar fasciitis 04/12/2009 09/04/2016 Left foot pain 04/12/2009 09/04/2016 Pre-operative cardiovascular examination 04/16/2006 09/04/2016 documented as of this encounter (statuses as of 01/24/2023) [facility] of Past illness Narrative* Problem Noted Date Diagnosed Date Resolved Date Achilles bursitis or tendinitis 10/11/2013 09/04/2016 Plantar fasciitis 04/12/2009 09/04/2016 Left foot pain 04/12/2009 09/04/2016 Pre-operative cardiovascular examination 04/16/2006 09/04/2016 documented as of this encounter (statuses as of 02/01/2023) [facility] of [facility] illness Narrative* Problem Noted Date Diagnosed Date Resolved Date Achilles bursitis or tendinitis 10/11/2013 09/04/2016 Plantar fasciitis 04/12/2009 09/04/2016 Left foot pain 04/12/2009 09/04/2016 Pre-operative cardiovascular examination 04/16/2006 09/04/2016 documented as of this encounter (statuses as of 02/08/2023) [facility] illness Narrative* Problem Noted Date Diagnosed Date Resolved Date Achilles bursitis or tendinitis 10/11/2013 09/04/2016 Plantar fasciitis 04/12/2009 09/04/2016 Left foot pain 04/12/2009 09/04/2016 Pre-operative cardiovascular examination 04/16/2006 09/04/2016 documented as of this encounter (statuses as of 02/24/2023) [facility] of [facility] illness Narrative* Problem Noted Date Diagnosed Date Resolved Date Achilles bursitis or tendinitis 10/11/2013 09/04/2016 Plantar fasciitis 04/12/2009 09/04/2016 Left foot pain 04/12/2009 09/04/2016 Pre-operative cardiovascular examination 04/16/2006 09/04/2016 documented as of this encounter (statuses as of 03/08/2023) [facility] of [facility] illness Narrative* Problem Noted Date Diagnosed Date Resolved Date Achilles bursitis or tendinitis 10/11/2013 09/04/2016 Plantar fasciitis 04/12/2009 09/04/2016 Left foot pain 04/12/2009 09/04/2016 Pre-operative cardiovascular examination 04/16/2006 09/04/2016 documented as of this encounter (statuses as of 03/09/2023) [facility] of [facility] Narrative* Problem Noted Date Diagnosed Date Resolved Date Achilles bursitis or tendinitis 10/11/2013 09/04/2016 Plantar fasciitis 04/12/2009 09/04/2016 Left foot pain 04/12/2009 09/04/2016 Pre-operative cardiovascular examination 04/16/2006 09/04/2016 documented as of this encounter (statuses as of 04/28/2023) [facility] + Plan note Future Appointments Appointment Date:06/29/2021 03:20:00 PM Scheduled Provider:CHRISTINA SANTAMARIA Location:[facility] Appointment Type:Telephone Future Scheduled Tests Laboratory* Pathology Tissue Request 06/20/21 Radiology* US Pelvis Non-OB W/Transvaginal 07/12/20 [facility] Evaluation note* Diagnosis Atrial fibrillation, chronic (HCC)- Primary Atrial fibrillation [facility] Diagnosis Other pulmonary embolism without acute cor pulmonale, unspecified chronicity (HCC)- Primary [facility]* Diagnosis Vitamin D deficiency- Primary Unspecified vitamin D deficiency Edema of both legs Edema Morbid obesity with BMI of 60.0-69.9, adult (HCC) Morbid obesity Essential hypertension Unspecified essential hypertension Anticoagulated on Coumadin Encounter for therapeutic drug monitoring Allergic rhinitis, unspecified seasonality, unspecified trigger Encounter for long-term current use of medication documented in this encounter [facility] note* Diagnosis History of pulmonary embolism- Primary Personal history of pulmonary embolism documented in this encounter [facility] note* Diagnosis History of pulmonary embolism- Primary Personal history of pulmonary embolism [facility]* Diagnosis Anticoagulated on Coumadin- Primary Encounter for therapeutic drug monitoring [facility] Diagnosis Allergic rhinitis, unspecified seasonality, unspecified trigger Acute atopic conjunctivitis of both eyes Acute atopic conjunctivitis [facility] Diagnosis Atrial fibrillation, chronic (HCC)- Primary Atrial fibrillation [facility] Diagnosis Other pulmonary embolism without acute cor pulmonale, unspecified chronicity (HCC)- Primary [facility]* Diagnosis Encounter for screening mammogram for breast cancer [facility]* Diagnosis History of colonic polyps Personal history of colonic polyps Morbid obesity (HCC) Morbid obesity [facility] Diagnosis Essential hypertension- Primary Unspecified essential hypertension Vitamin D deficiency Unspecified vitamin D deficiency Edema of both legs Edema Morbid obesity with BMI of 60.0-69.9, adult (HCC) Morbid obesity Anticoagulated on Coumadin Encounter for therapeutic drug monitoring Special screening for malignant neoplasms, colon Need for vaccination Need for prophylactic vaccination and inoculation against unspecified single disease Screening for colon cancer Special screening for malignant neoplasms, colon documented in this encounter [facility] note* Diagnosis Other pulmonary embolism without acute cor pulmonale, unspecified chronicity (HCC)- Primary documented in this encounter [facility] note* Diagnosis Essential hypertension- Primary Unspecified essential hypertension Allergic rhinitis, unspecified seasonality, unspecified trigger Acute atopic conjunctivitis of both eyes Acute atopic conjunctivitis Vitamin D deficiency Unspecified vitamin D deficiency Anticoagulated on Coumadin Encounter for therapeutic drug monitoring Edema of both legs Edema Morbid obesity with BMI of 60.0-69.9, adult (HCC) Morbid obesity Encounter for long-term current use of medication documented in this encounter [facility] note* Diagnosis History of pulmonary embolism- Primary Personal history of pulmonary embolism documented in this encounter [facility] note* Diagnosis History of pulmonary embolism- Primary Personal history of pulmonary embolism documented in this encounter [facility] note* Diagnosis History of pulmonary embolism- Primary Personal history of pulmonary embolism documented in this encounter [facility] note* Diagnosis Urinary tract infection with hematuria, site unspecified- Primary Burning with urination Dysuria documented in this encounter [facility] note* Diagnosis History of pulmonary embolism- Primary Personal history of pulmonary embolism documented in this encounter [facility] note* Diagnosis Encounter for screening mammogram for breast cancer documented in this encounter [facility] note* Diagnosis Encounter for screening mammogram for breast cancer documented in this encounter [facility] course Narrative No data available for this section [facility] Discharge instructions No data available for this section [facility] Reason for referral (narrative)* Diagnostic Procedure Only (Routine) - Pending Review Specialty Diagnoses / Procedures Referred By Tristin t Referred To Contact [facility] Diagnoses Encounter for screening mammogram for breast cancer Procedures ROBLES SCREENING SCREENING MAMMOGRAPHY BI 2-VIEW BREAST INC Marleen Quiñones MD [address] [place] [address] [facility] [address] [place] [address] Referral ID Status Reason Start Date Expiration Date Visits Requested Visits Authorized [id number] Pending Review Auto-Generat ed Referral 03/29/2023 1 1 [facility] for referral (narrative)* Outpatient Procedure (Routine) - Pending Review Specialty Diagnoses / Procedures Referred By Tristin gutierrez Referred To Contact [facility] Diagnoses Special screening for malignant neoplasms, colon Procedures COLONOSCOPY SCREENING COLONOSCOPY FLX DX W/[place] [address] [place] [address] [facility] [place] [address] [place] [address] Referral ID Status Reason Start Date Expiration Date Visits Requested Visits Authorized [id number] Pending Review Auto-Generat ed Referral 03/12/2022 03/12/2023 1 1 [facility] for referral (narrative)* Diagnostic Procedure Only (Routine) - Closed Specialty Diagnoses / Procedures Referred By Tristin gutierrez Referred To Contact [facility] Diagnoses Encounter for screening mammogram for breast cancer Procedures ROBLES SCREENING SCREENING MAMMOGRAPHY BI 2-VIEW BREAST INC Marleen Quiñones MD [address] [place] [address] [facility] [address] [place] [address] Referral ID Status Reason Start Date Expiration Date V isits Requested Visits Authorized [id number] Closed Auto-Generate d Referral 03/15/2022 05/04/2022 1 1 [facility] for referral (narrative)* Diagnostic Procedure Only (Routine) - Pending Review Specialty Diagnoses / Procedures Referred By Tristin gutierrez Referred To Contact [facility] Diagnoses Encounter for screening mammogram for breast cancer Procedures ROBLES SCREENING SCREENING MAMMOGRAPHY BI 2-VIEW BREAST INC Marleen Quiñones MD [address] [place] [address] [facility] [address] [place] [address] Referral ID Status Reason Start Date Expiration Date Visits Requested Visits Authorized [id number] Pending Review Auto-Generat ed Referral 3 05/22/2024 1 1 NA [facility] for visit Narrative* Diagnostic Procedure Only (Routine) - Closed Specialty Diagnoses / Procedures Referred By Tristin gutierrez Referred To Contact [facility] Diagnoses Encounter for screening mammogram for breast cancer Procedures ROBLES SCREENING SCREENING MAMMOGRAPHY BI 2-VIEW BREAST INC CAD Marleen Cameron MD [address] [place] [address] [facility] [address] [place] [address] Referral ID Status Reason Start Date Expiration Date V isits Requested Visits Authorized [id number] Closed Auto-Generate d Referral 03/15/2022 05/04/2022 1 1 [facility] Summary Purpose Family History No Family History Records FoundNo Family History Records Found Advance Directives No Advanced Directives Records FoundNo Advanced Directives Records Found Additional Source Comments Source Comments (unrecognize d section and content) In the event this informatio n is protected by the Federal Confidentiality of Alcohol and Drug Abuse Patient Records regulations: The Federal rules restrict any use of the information to criminally investigate or prosecute any alcohol or drug abuse patient.[facility] event this information is protected by the Federal Confidentiality of Alcohol and Drug Abuse Patient Records regulations: The Federal rules restrict any use of the information to criminally investigate or prosecute any alcohol or drug abuse patient.[facility] the event this information is protected by the Federal Confidentiality of Alcohol and Drug Abuse Patient Records regulations: The Federal rules restrict any use of the information to criminally investigate or prosecute any alcohol or drug abuse patient.[facility] the event this information is protected by the Federal Confidentiality of Alcohol and Drug Abuse Patient Records regulations: The Federal rules restrict any use of the information to criminally investigate or prosecute any alcohol or drug abuse patient.[facility] the event this information is protected by the Federal Confidentiality of Alcohol and Drug Abuse Patient Records regulations: The Federal rules restrict any use of the information to criminally investigate or prosecute any alcohol or drug abuse patient.[facility] the event this information is protected by the Federal Confidentiality of Alcohol and Drug Abuse Patient Records regulations: The Federal rules restrict any use of the information to criminally investigate or prosecute any alcohol or drug abuse patient.[facility] the event this information is protected by the Federal Confidentiality of Alcohol and Drug Abuse Patient Records regulations: The Federal rules restrict any use of the information to criminally investigate or prosecute any alcohol or drug abuse patient.[facility] the event this information is protected by the Federal Confidentiality of Alcohol and Drug Abuse Patient Records regulations: The Federal rules restrict any use of the information to criminally investigate or prosecute any alcohol or drug abuse patient.[facility] the event this information is protected by the Federal Confidentiality of Alcohol and Drug Abuse Patient Records regulations: The Federal rules restrict any use of the information to criminally investigate or prosecute any alcohol or drug abuse patient.[facility] the event this information is protected by the Federal Confidentiality of Alcohol and Drug Abuse Patient Records regulations: The Federal rules restrict any use of the information to criminally investigate or prosecute any alcohol or drug abuse patient.[facility] the event this information is protected by the Federal Confidentiality of Alcohol and Drug Abuse Patient Records regulations: The Federal rules restrict any use of the information to criminally investigate or prosecute any alcohol or drug abuse patient.[facility] the event this information is protected by the Federal Confidentiality of Alcohol and Drug Abuse Patient Records regulations: The Federal rules restrict any use of the information to criminally investigate or prosecute any alcohol or drug abuse patient.[facility] the event this information is protected by the Federal Confidentiality of Alcohol and Drug Abuse Patient Records regulations: The Federal rules restrict any use of the information to criminally investigate or prosecute any alcohol or drug abuse patient.[facility] the event this information is protected by the Federal Confidentiality of Alcohol and Drug Abuse Patient Records regulations: The Federal rules restrict any use of the information to criminally investigate or prosecute any alcohol or drug abuse patient.[facility] the event this information is protected by the Federal Confidentiality of Alcohol and Drug Abuse Patient Records regulations: The Federal rules restrict any use of the information to criminally investigate or prosecute any alcohol or drug abuse patient.[facility] the event this information is protected by the Federal Confidentiality of Alcohol and Drug Abuse Patient Records regulations: The Federal rules restrict any use of the information to criminally investigate or prosecute any alcohol or drug abuse patient.[facility] the event this information is protected by the Federal Confidentiality of Alcohol and Drug Abuse Patient Records regulations: The Federal rules restrict any use of the information to criminally investigate or prosecute any alcohol or drug abuse patient.[facility] the event this information is protected by the Federal Confidentiality of Alcohol and Drug Abuse Patient Records regulations: The Federal rules restrict any use of the information to criminally investigate or prosecute any alcohol or drug abuse patient.[facility] the event this information is protected by the Federal Confidentiality of Alcohol and Drug Abuse Patient Records regulations: The Federal rules restrict any use of the information to criminally investigate or prosecute any alcohol or drug abuse patient.[facility] the event this information is protected by the Federal Confidentiality of Alcohol and Drug Abuse Patient Records regulations: The Federal rules restrict any use of the information to criminally investigate or prosecute any alcohol or drug abuse patient.[facility] the event this information is protected by the Federal Confidentiality of Alcohol and Drug Abuse Patient Records regulations: The Federal rules restrict any use of the information to criminally investigate or prosecute any alcohol or drug abuse patient.[facility] the event this information is protected by the Federal Confidentiality of Alcohol and Drug Abuse Patient Records regulations: The Federal rules restrict any use of the information to criminally investigate or prosecute any alcohol or drug abuse patient.[facility] the event this information is protected by the Federal Confidentiality of Alcohol and Drug Abuse Patient Records regulations: The Federal rules restrict any use of the information to criminally investigate or prosecute any alcohol or drug abuse patient.[facility] the event this information is protected by the Federal Confidentiality of Alcohol and Drug Abuse Patient Records regulations: The Federal rules restrict any use of the information to criminally investigate or prosecute any alcohol or drug abuse patient.[facility] the event this information is protected by the Federal Confidentiality of Alcohol and Drug Abuse Patient Records regulations: The Federal rules restrict any use of the information to criminally investigate or prosecute any alcohol or drug abuse patient.[facility] the event this information is protected by the Federal Confidentiality of Alcohol and Drug Abuse Patient Records regulations: The Federal rules restrict any use of the information to criminally investigate or prosecute any alcohol or drug abuse patient.[facility] the event this information is protected by the Federal Confidentiality of Alcohol and Drug Abuse Patient Records regulations: The Federal rules restrict any use of the information to criminally investigate or prosecute any alcohol or drug abuse patient.[facility] the event this information is protected by the Federal Confidentiality of Alcohol and Drug Abuse Patient Records regulations: The Federal rules restrict any use of the information to criminally investigate or prosecute any alcohol or drug abuse patient.[facility] the event this information is protected by the Federal Confidentiality of Alcohol and Drug Abuse Patient Records regulations: The Federal rules restrict any use of the information to criminally investigate or prosecute any alcohol or drug abuse patient.[facility] the event this information is protected by the Federal Confidentiality of Alcohol and Drug Abuse Patient Records regulations: The Federal rules restrict any use of the information to criminally investigate or prosecute any alcohol or drug abuse patient.[facility] the event this information is protected by the Federal Confidentiality of Alcohol and Drug Abuse Patient Records regulations: The Federal rules restrict any use of the information to criminally investigate or prosecute any alcohol or drug abuse patient.[facility] the event this information is protected by the Federal Confidentiality of Alcohol and Drug Abuse Patient Records regulations: The Federal rules restrict any use of the information to criminally investigate or prosecute any alcohol or drug abuse patient.[facility] Reason for Visit (unrecogniz ed section and content) Reason Comments Follow Up Specialty Diagnoses / Procedures Referred By Tristin t Referred To Contact [facility] Diagnoses EST COUMADIN Procedures GIANCARLO COUMADIN Marleen Cameron MD [address] [place] [address] Anticoag [facility] [address] [place] [address] Referral ID Status Reason Start Date Expiration Date V isits Requested Visits Authorized [id number] Closed OON/Self Pay Override 05/12/2020 08/10/2020 1 1 Reason Comments Orders protime Reason Onset Date Comments Refill Request 12/03/2021 Reason Comments Results Reason Comments Consult colonoscopy Reason Comments F/U 6 months Reason Comments F/U 6 months Reason Comments Urinary Problem Burning with urinati on since 1 pm Reason Comments Refill Request Care Teams (unrecognized sec tion and content) Bioinformatics Programmer Relationship Specialty Start Date End Date Marleen Cameron MD [address] [place] [address] PCP - General Internal Medicine 08/30/10 Bioinformatics Programmer Relationship Specialty Start Date End Date Marleen Cameron MD [address] [place] [address] PCP - General Internal Medicine 08/30/10 Bioinformatics Programmer Relationship Specialty Start Date End Date Marleen Cameron MD [address] [place] [address] PCP - General Internal Medicine 08/30/10 Bioinformatics Programmer Relationship Specialty Start Date End Date Marleen Cameron MD [address] [place] [address] PCP - General Internal Medicine 08/30/10 Bioinformatics Programmer Relationship Specialty Start Date End Date Marleen Cameron MD [address] [place] [address] PCP - General Internal Medicine 08/30/10 Bioinformatics Programmer Relationship Specialty Start Date End Date Marleen Cameron MD [address] [place] [address] PCP - General Internal Medicine 08/30/10 Bioinformatics Programmer Relationship Specialty Start Date End Date Marleen Cameron MD [address] [place] [address] PCP - General Internal Medicine 08/30/10 Bioinformatics Programmer Relationship Specialty Start Date End Date Marleen Cameron MD [address] [place] [address] PCP - General Internal Medicine 08/30/10 Bioinformatics Programmer Relationship Specialty Start Date End Date Marleen Cameron MD [address] [place] [address] PCP - General Internal Medicine 08/30/10 Bioinformatics Programmer Relationship Specialty Start Date End Date Marleen Cameron MD [address] [place] [address] PCP - General Internal Medicine 08/30/10 Bioinformatics Programmer Relationship Specialty Start Date End Date Marleen Cameron MD [address] [place] [address] PCP - General Internal Medicine 08/30/10 Bioinformatics Programmer Relationship Specialty Start Date End Date Marleen Cameron MD [address] [place] [address] PCP - General Internal Medicine 08/30/10 Bioinformatics Programmer Relationship Specialty Start Date End Date Marleen Cameron MD [address] [place] [address] PCP - General Internal Medicine 08/30/10 Bioinformatics Programmer Relationship Specialty Start Date End Date Marleen Cameron MD [address] [facility] [place] [address] PCP - General Internal Medicine 08/30/10 INFORMATION SOURCE (unrecogn ized section and content) DATE CREATED AUTHOR AUTHOR'S JETHRO ATION 04/30/2023 [facility] FOR RECORDS PERTAINING TO PATIENTS WHO ARE OR HAVE BEEN ENROLLED IN A CHEMICAL DEPENDENCY/SUBSTANCEABUSE PROGRAM, SOME INFORMATION MAY BE OMITTED. This clinical summary was aggregated from multiple sources. Caution should be exercised in using it in the provision of clinical care. This summary normalizes information from multiple sources, and as a consequence, information in this document may materially change the coding, format and clinical context of patient data. In addition, data may be omitted in some cases. CLINICAL DECISIONS SHOULD BE BASED ON THE PRIMARY CLINICAL RECORDS. [email or web address] provides no warranty or guarantee of the accuracy or completeness of information in this document.
[2023-05-09] MEDS: Lactated Ringers 1,000 ML 15 ML IV (07:34)
--- NOTE | 2023-05-09 07:54 | PCM.HP.BLA ---
History and Physical Date of Admission: 05/09/23 Intake Vital Signs 03/04/2315:25 03/24/2313:42 Height 5 ft 1 in Weight: 346 lb BMI 65.3 BP 139/82 H 143/85 H Blood Pressure Location Lt brachial Rt brachial Position Sitting Sitting Respiration 20 H 17 Pulse 79 80 Pulse Source Monitor Monitor Temp 97.2 F L Temp Source Temporal Pulse Oximetry (%) 97 Oxygen Delivery Method room air Intake Visit Reasons: COLONOSCOPY Chief Complaint: c-scope Is patient in pain?: No Allergies latex Allergy (Verified 03/24/23 13:43) Itchingnaproxen [From Aleve] Adverse Reaction (Unknown, Verified 03/24/23 13:43) Unknown Medications mometasone 50 mcg/actuation nasal spray 1 spray NASAL DAILY PRN PRN Allergies 10/04/14 [History Confirmed 03/24/23] olopatadine 0.1 % eye drops (Patanol) 1 drp ophthalmic (eye) BID PRN Allergies 11/17/17 [History Confirmed 03/24/23] cholecalciferol (vitamin D3) 125 mcg (5,000 unit) tablet (Vitamin D3) 125 mcg PO DAILY 02/23/20 [History Confirmed 03/24/23] warfarin 7.5 mg tablet 7.5 mg PO SUTUTHSA 02/23/20 [History Confirmed 03/24/23] warfarin 7.5 mg tablet 11.25 mg PO MOWEFR 02/23/20 [History Confirmed 03/24/23] hydrochlorothiazide 25 mg tablet 25 mg PO DAILY #90 tabs 04/30/22 [Rx Confirmed 03/24/23] losartan 50 mg tablet 75 mg (1.5 x 50 mg) PO QDAY htn 90 days #135 tabs 02/26/23 [Rx Confirmed 03/24/23] PFSH Medical History Arthritis Bilateral leg edema Bilateral pulmonary embolism BMI 60.0-69.9, adult Cardiology follow-up encounter CPAP (continuous positive airway pressure) dependence Dyspnea on exertion Easy bruising Encounter for current long-term use of anticoagulants Guaiac positive stools History of echocardiogram History of edema Hypertension Non-smoker Non-ST elevation (NSTEMI) myocardial infarction Obesities, morbid BRENNON (obstructive sleep apnea) Osteoarthritis Pulmonary embolism Secondary pulmonary arterial hypertension Sleep apnea Walker as ambulation aid Wears glasses Surgical History H/O laparoscopic adjustable gastric banding History of D&C History of tubal ligation History of tubal ligation Hx of laparoscopic gastric banding Social History Smoking Status: Never smoker second hand exposure: No alcohol intake: never substance use type: does not use caffeine: Yes what type of physical activity do you participate in: none HPI HPI HPI: Patient is a 63-year-old female here for follow-up colonoscopy. She had her last colonoscopy 1 year ago. 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 She has not had any issues since her last colonoscopy. ROS General General: No weight change, appetite, fatigue, colon cancer or breast cancer HEENT HEENT: No difficulty swallowing, eye injury, eye surgery, swollen glands or hoarseness Endo Endocrine: No thyroid disease, diabetes mellitus, thyroid cancer, Hair loss, heat intolerance or cold intolerance Skin Skin: No rash or changing moles Musc Musculoskeletal: Yes arthritis; No back problems, rheumatoid arthritis, gout or joint pain Cardio Cardiovascular: Yes high blood pressure; No murmur, pacemaker, heart disease, atrial fibrillation, heart attack, heart stent, palpitations, shortness of breat with exertion or chest pain Psych Psychiatric: No depression, anxiety or hearing voices Resp Respiratory: No shortness of breath, Yes sleep apnea, Yes cough, No COPD, No asthma, No emphysema and No wheezing Gastro Gastrointestinal: No abdominal pain, No nausea or vomiting, No diarrhea, No constipation, No blood in stool, No acid reflux, No hemorrhoids, No ulcers, No gallbladder problem and No black,tarry stools Marbin Hematologic: Yes blood thinners and Yes blood clots Additional Details: h/o blood clots in legs/lungs Exam Const General: cooperative Orientation: alert and oriented x3 HENMT Head: normal to inspection Neck Neck: normal visual inspection and full ROM Chest Chest palpation & inspection: normal inspection of the chest Resp Effort & Inspection: normal respiratory effort Auscultation: clear to auscultation bilaterally Cardio Rate: regular rate Rhythm: regular rhythm GI Inspection: non-distended Palpation: soft and nontender Skin General: no rashes or lesions noted Neuro General: patient alert and patient oriented x3 Extrem General: full ROM Psych Appearance: grossly normal Mental Status: mental status grossly normal Assessment and Plan Assessment and Plan (1) History of colon polyps: Status: Acute Plan: Patient has a history of a large tubulovillous adenoma with high-grade dysplasia of the rectum. It was removed piecemeal and so she was recommended to have a repeat colonoscopy in 1 year. I have asked her to stop her Coumadin for 7 days prior to surgery. I explained endoscopy in detail to the patient. I explained the risks including but not limited to stroke or heart attack with anesthesia, perforation of the GI tract, bleeding, infection. I explained that any of these could necessitate further emergency surgery. The patient understands and all questions were answered sufficiently. The patient wishes to proceed with procedure. Viraj Goodwin MD Pager: [facility] [address] [place] [address], [address] [place] [address] Office: I have examined the patient and the H&P has been reviewed. There are no clinical changes since date of exam.
--- NOTE | 2023-05-09 08:25 | OP.COLON_ITS ---
Patient Name: Mary Jo Lin Procedure Date: 05/09/2023 7:54 AM Date of : 1960 Age: 63 Procedure: Colonoscopy Indications: High risk colon cancer surveillance: Personal history of colonic polyps Providers: Viraj Goodwin MD Medicines: Monitored Anesthesia Care Patient Profile: This is a 63 year old female. Refer to note in patient chart for documentation of history and physical. Last Colonoscopy: 3 years ago. Complications: No immediate complications. Procedure: Pre-Anesthesia Assessment: - Prior to the procedure, a History and Physical was performed, and patient medications and allergies were reviewed. The patient's tolerance of previous anesthesia was also reviewed. The risks and benefits of the procedure and the sedation options and risks were discussed with the patient. All questions were answered, and informed consent was obtained. Prior Anticoagulants: The patient has taken no anticoagulant or antiplatelet agents. After reviewing the risks and benefits, the patient was deemed in satisfactory condition to undergo the procedure. After I obtained informed consent, the scope was passed under direct vision. Throughout the procedure, the patient's blood pressure, pulse, and oxygen saturations were monitored continuously. The colonoscope was introduced through the anus and advanced to the cecum, identified by appendiceal orifice and ileocecal valve. The colonoscopy was performed without difficulty. The patient tolerated the procedure well. The quality of the bowel preparation was good. The ileocecal valve, appendiceal orifice, and rectum were photographed. Scope In: 8:08:05 AM Scope Withdrawal Time 0 hours 4 minutes 18 seconds Scope Out: 8:16:33 AM Total Procedure Duration Time 0 hours 8 minutes 28 seconds Findings: The entire examined colon appeared normal on direct and retroflexion views. Impression: - The entire examined colon is normal on direct and retroflexion views. - No specimens collected. Recommendation: - Discharge patient to home. - Resume previous diet. - Continue present medications. - Repeat colonoscopy in 5 years for surveillance. Procedure Code(s): --- Professional --- 19319, Colonoscopy, flexible; diagnostic, including collection of specimen(s) by brushing or washing, when performed (separate procedure) Diagnosis Code(s): --- Professional --- Z86.010, Personal history of colonic polyps CPT copyright 2021 [employer]. All rights reserved. The codes documented in this report are preliminary and upon client support consultant review may be revised to meet current compliance requirements. Viraj Goodwin MD 05/09/2023 8:25:03 AM This report has been signed electronically. Number of Addenda: 0 Note Initiated On: 05/09/2023 7:54 AM
--- NOTE | 2023-05-09 08:25 | OP.CCLET_ITS ---
05/09/2023 Loyda Cameron [address] [place] [address] Re : Colonoscopy procedure for Mary Jo Lin Dear Dr. Cameron This procedure was performed on Tuesday, May 09, 2023. My impressions and recommendations are as follows: Impressions : - The entire examined colon is normal on direct and retroflexion views. - No specimens collected. Recommendations : - Discharge patient to home. - Resume previous diet. - Continue present medications. - Repeat colonoscopy in 5 years for surveillance. My findings are described in the full procedure note, which is enclosed. If I can be of further assistance, please feel free to contact me at Doctor phone number(s): , Work: . Sincerely, Viraj Goodwin MD 05/09/2023 8:25:03 AM This report has been signed electronically.
== END 2023-05-09 09:25 | disposition home or self-care (01) ==
LOC: EN 07:02 → AC 07:04
PROVIDERS: PCP Internal Medicine; Referring Provider Internal Medicine; Visit Provider Surgery
PROC: 0DJD8ZZ Inspection of Lower Intestinal Tract, Via Natural or Artificial Opening Endoscopic (ICD-10-PCS; CPT 45378; principal; 2023-05-09 07:55)
DX: Z12.11 Encounter for screening for malignant neoplasm of colon (principal); E66.01 Morbid (severe) obesity due to excess calories; I10 Essential (primary) hypertension; Z86.010 Personal history of colon polyps; Z79.01 Long term (current) use of anticoagulants; Z79.899 Other long term (current) drug therapy
CPT/HCPCS: 45378; 36416; 85610; J7120; J2405

== ENCOUNTER 2024-02-04 04:52 | Emergency (ER) | payer OTHER, SELFPAY ==
[2024-02-04 04:53] VITALS: BP 105/42; PULSE 82; RESP 17; TEMP 36.4; O2SAT 98; BMI 57.0
--- NOTE | 2024-02-04 05:10 | EDS_ITS ---
HPI History of Present Illness Chief Complaint: Lower Extremity Injury Informant: patient and spouse/S.O. Narrative Narrative: 63-year-old female presenting to the emergency room with right knee pain. Patient states that she has a history of arthritis in the knees. Today she was riding her bike when she felt a pop. She notes pain over the anterior lateral aspect of the lower knee as well as posterior lateral. She states it is painful for her to try to straighten the leg. Patient denies any direct blow to the knee. She states that she has felt that pop before but has never been painful like this. [facility] Medical History Post-menopausal Bladder disease Dietary restriction History of pain when walking Wears glasses Walker as ambulation aid Arthritis Pulmonary embolism CPAP (continuous positive airway pressure) dependence Non-smoker History of edema History of echocardiogram Cardiology follow-up encounter Guaiac positive stools Hypertension Secondary pulmonary arterial hypertension Bilateral pulmonary embolism Osteoarthritis Encounter for current long-term use of anticoagulants Non-ST elevation (NSTEMI) myocardial infarction Bilateral leg edema Dyspnea on exertion BMI 60.0-69.9, adult Obesities, morbid BRENNON (obstructive sleep apnea) Home Medications ?Medication ?Instructions ?Recorded ?Last Taken ?Type mometasone 50 mcg/actuation nasal 1 spray NASAL DAILY PRN PRN 10/04/14 10/03/14 History spray Allergies olopatadine 0.1 % eye drops 1 drp ophthalmic (eye) BID PRN 11/17/17 Unknown History (Patanol) Allergies cholecalciferol (vitamin D3) 125 125 mcg PO QWEEK 02/23/20 Unknown History mcg (5,000 unit) tablet (Vitamin D3) warfarin 7.5 mg tablet 7.5 mg PO SUTUTHSA 02/23/20 05/01/23 History warfarin 7.5 mg tablet 11.25 mg PO MOWEFR 02/23/20 05/01/23 History losartan 50 mg tablet 75 mg (1.5 x 50 mg) PO QDAY htn 90 02/26/23 05/09/23 Rx days #135 tabs hydrochlorothiazide 25 mg tablet 25 mg PO DAILY #90 tabs 05/08/23 Unknown Rx oxycodone-acetaminophen 5 mg-325 1 tab PO Q6H PRN PRN Pain 3 days 02/04/24 Unknown Rx mg tablet #12 TABLETS Allergy/AdvReac Type Severity Reaction Status Date / Time latex Allergy Itching Verified 02/04/24 04:53 naproxen (From Aleve) AdvReac Unknown Unknown Verified 02/04/24 04:53 Surgical History Hx of colonoscopy History of D&C History of tubal ligation H/O laparoscopic adjustable gastric banding Hx of laparoscopic gastric banding History of tubal ligation Social History Smoking Status: Never smoker second hand exposure: No alcohol intake: never substance use type: does not use caffeine: Yes what type of physical activity do you participate in: none ROS ROS ED Constitutional Constitutional ED: Denies chills or weight loss Eyes Eyes: Denies change in vision or diplopia ENT ENT ED: Denies ear pain, rhinorrhea or sore throat Cardiovascular Cardiovascular: Denies chest pain, orthopnea, palpitations or racing heartbeat Respiratory/Chest Respiratory/Chest: Denies cough, dyspnea or orthopnea Gastrointestinal Gastrointestinal: Denies abdominal pain, diarrhea, nausea or vomiting Genitourinary Genitourinary ED: Denies dysuria, hematuria or urinary frequency Musculoskeletal Musculoskeletal: Reports other Details: See history of present illness ; Denies arthralgias or myalgias Integumentary Denies abscess or rash Neurologic Neurologic: Denies headache(s) or weakness Psychiatric Psychiatric: Denies anxiety, depression, suicidal ideation or suicidal thoughts Endocrine Endocrinology: Denies polydipsia, polyphagia or polyuria Allergic/Immunologic Allergic/Immunologic ED: Denies mouth swelling, tongue swelling or urticaria EXAM Physical Exam Const Vital Signs: 02/04/24 04:53 Temperature 97.6 F L Temperature Source Temporal Pulse Rate 82 Respiratory Rate 17 Blood Pressure 105/42 L Blood Pressure Mean 63 Pulse Ox 98 Oxygen Delivery Method Room Air Positive well nourished, well developed and obese General Appearance ED: well developed and NAD Nutritional Appearance: obese HEENT Reports normocephalic, head/scalp atraumatic and moist mucous membranes Eyes PERRL and EOMs intact bilaterally Neck no lymphadenopathy, supple and no JVD Resp normal respiratory effort and clear to auscultation bilaterally Cardio regular rate, regular rhythm and no murmurs GI normal to inspection, nondistended, normoactive bowel sounds and non-tender Palpation: soft Back/Spine no CVA tenderness and normal ROM Extremity Extremity Narrative: Patient has lateral joint line tenderness both anteriorly as well as posteriorly. I do not feel just a large effusion. The patella seems to have normal lie. Ligamentous exam appears stable General Extremety ED: Negative for edema General Extremity: Negative for edema Neuro oriented x3 and CN's II-XII intact bilaterally Sensorium / Orientation: alert Motor Exam: strength 5/5 throughout Psych mental status grossly normal Mood & Affect: Negative for depressed or tearful Skin no rashes or lesions noted and no wounds MDM MDM MDM Narrative Medical decision making narrative: Differential diagnosis includes but not limited to fracture meniscal injury ligamentous injury muscle sprain ligamentous sprain/tear contusion abrasion May have been interpretation of the chest x-ray is arthritic changes with medial compartment narrowing. Clinically the patient is tender over the joint line this could represent meniscal injury. Ligaments appear stable though there is some guarding. There could be some inflammation of the bone. I think that the patient can be treated conservatively at home with rest ice. We talked about crutches but she has a walker and like to try that. I will write for some pain medication. Follow-up with orthopedics if not improving History & Record Review Discussion w/independent historian: Patient and Significant other Discharge Plan Triage Chief Complaint: Lower Extremity Injury ED Provider: Lefty Lisa Dx/Rx/DC Orders Clinical Impression: Osteoarthritis, Acute knee pain Instructions: ED Meniscal Injury Knee Poss, ED Knee Pain of Uncertain Cause Prescriptions: New oxycodone-acetaminophen 5-325 mg tablet 1 tab PO Q6H PRN PRN (Reason: Pain) 3 Days Qty: 12 0RF No Action olopatadine [Patanol] 0.1 % drops 1 drp OPHTHALMIC BID PRN (Reason: Allergies) warfarin 7.5 mg tablet 7.5 mg PO ROMMEL Patient Comments: 7.5 mg PO managed by Dr. Cameron; blood thinner Rx Instructions: 7.5 mg PO managed by Dr. Cameron; blood thinner LAST DOSE 04/17 cholecalciferol (vitamin D3) [Vitamin D3] 125 mcg (5,000 unit) tablet 125 mcg PO QWEEK mometasone 1 SPRAY spray,non-aerosol 1 spray NASAL DAILY PRN PRN (Reason: Allergies) Patient Comments: allergies warfarin 7.5 mg tablet 11.25 mg PO MOWEFR losartan 50 mg tablet 75 mg PO QDAY 90 Days Qty: 135 3RF hydrochlorothiazide 25 mg tablet 25 mg PO DAILY Qty: 90 3RF Primary Care Provider: Loyda Cameron Referrals: Loyda Cameron MD [Primary Care Provider] - Adán Townsend MD [Med Staff - Active Staff] - 10-14 Days if not better Print Language: [place] Disposition Disposition: Home, Self Care
--- NOTE | 2024-02-04 05:10 | RAD_ITS ---
EXAM: XR RIGHT KNEE COMPLETE, 4 OR MORE VIEWS CLINICAL INDICATION: INJURY TECHNIQUE: Four or more views of the right knee. COMPARISON: No relevant prior studies available. FINDINGS: BONES/JOINTS: Moderate degenerative changes of the medial femorotibial compartment. No acute fracture. No subluxation. Normal alignment. No sclerotic or destructive changes observed. SOFT TISSUES: Unremarkable. No soft tissue swelling or gas. No radiopaque foreign body. RAD/Knee 4 or More Views IMPRESSION: 1. No acute injuries identified involving the right knee. 2. Moderate degenerative changes of the medial femorotibial compartment. Electronically Signed: Jason Joseph MD at 5:39 EDT ,
[2024-02-04 06:10] VITALS: BP 101/47; PULSE 74; RESP 18; TEMP 36.7; O2SAT 95
[2024-02-04] MEDS: oxyCODONE 5 MG Tablet 10 MG PO (06:16)
== END 2024-02-04 06:20 | disposition home or self-care (01) ==
PROVIDERS: Emergency Provider Emergency Medicine; PCP Internal Medicine; Visit Provider Emergency Medicine
DX: M17.11 Unilateral primary osteoarthritis, right knee (principal); I10 Essential (primary) hypertension; M25.561 Pain in right knee; E66.9 Obesity, unspecified
CPT/HCPCS: 73564; 99282